=== PATIENT | male | born 1950 | race Caucasian/White ===

== ENCOUNTER → 2018-06-26 | Outpatient (CLI) | payer MEDICARE ==
--- NOTE | 2018-06-26 15:37 | Diagnostic Imaging Report ---
Exam: Left femurCT without contrast. History: Abnormal x-ray. Hypothyroidism. Anemia. Decreased range of motion. Rash on thigh Comparison:None Technique: Utilizing a 64-slice multidetector CT, axial imaging was performed through the left femur without IV contrast. Multiplanar reformation was performed. Findings: Diffuse osteopenia. No acute fracture, subluxation or avascular necrosis. Moderate/severe degenerative arthrosis in the left hip joint with joint space narrowing, subchondral sclerosis, subchondral cystic change and peripheral osteophytosis with fragmentation of the superior lateral acetabulum. Left hip joint effusion likely reactive. Bony protuberance off the left hip greater trochanter likely due to chronic trochanteric bursitis. Ill-defined bony protuberance which may be partially cortically based with associated central lucency and thinning of the cortex along the posterior proximal shaft of the femur best seen on sagittal reformatted image 92 through 100 and axial image 48 through 77. No radiopaque foreign body. Diffuse muscle atrophy. Impression: Ill-defined bony protuberance which may be partially cortically based with associated central lucency and thinning of the cortex along the posterior proximal shaft of the femur could be due to a bony exostosis. A metastatic focus is a possibility. Infection is thought to be unlikely. Bone scan is recommended for further evaluation. Signed by: Dr. Wiliam Ramos M.D. on 06/26/2018 3:33 PM
--- NOTE | 2018-06-26 15:43 | Diagnostic Imaging Report ---
EXAM: CT Abdomen and Pelvis WITHOUT contrast INDICATION: \[id number] \[id number] \S\ANEMIA/DIARRHEA/ABN XRAY COMPARISON: None. TECHNIQUE: Abdomen and pelvis were scanned utilizing a multidetector helical scanner from the lung base to the pubic symphysis without administration of IV contrast. Absence of intravenous contrast decreases sensitivity for detection of focal lesions and vascular pathology. Coronal and sagittal reformations were obtained. Routine protocol was performed. IV CONTRAST: None ORAL CONTRAST: Water COMPLICATIONS: None RADIATION DOSE: Total DLP: 1421.92 mGy*cm Estimated effective dose: (DLP x 0.015 x size factor) mSv CTDIvol has been reviewed. It is below the limits set by the Radiation Protocol Committee (RPC). FINDINGS: LINES and TUBES: None. LOWER THORAX: Right base opacification with air bronchograms. Elevated right hemidiaphragm. HEPATOBILIARY: Hepatomegaly, measuring 20.1 cm. Unenhanced liver is unremarkable. No biliary ductal dilation. GALLBLADDER: No radio-opaque stones or sludge. No wall thickening. SPLEEN: Splenomegaly, measuring 17.3 cm. PANCREAS: Fatty involution of the pancreas. No focal masses or ductal dilatation. ADRENALS: No adrenal nodules KIDNEYS/URETERS: Horseshoe kidney. No hydronephrosis. Limited for evaluation of renal parenchyma without intravenous contrast. 1.3 and 0.8 cm left inferior pole calculi. 1.4 cm right inferior pole calculus. 0.7 cm right superior pole calculus. Minimal bilateral hydroureter and periureteral fat stranding, left slightly more than right. GI TRACT: No abnormal distention, wall thickening, or evidence of bowel obstruction. All of the small bowel loops are in the right abdomen. Appendix is not visualized. PELVIC ORGANS/BLADDER: Mild bladder wall thickening. LYMPH NODES: No lymphadenopathy. Nonspecific subcentimeter retroperitoneal lymph nodes. VESSELS: Unremarkable. PERITONEUM / RETROPERITONEUM: No free air or fluid. BONES: Advanced degenerative changes of the bilateral hip joints. Thoracolumbar posterior fusion. Multilevel degenerative changes of the spine. SOFT TISSUES: Unremarkable. IMPRESSION: 1. Limited study without intravenous contrast. 2. Horseshoe kidney. Bilateral nonobstructive renal calculi. No evidence of obstructive urolithiasis. There is minimal bilateral hydroureter and periureteral fat stranding as well as mild bladder wall thickening. Urinary tract infection cannot be excluded. 3. Displacement of the small bowel loops to the right abdomen, could be due to mesenteric herniation through a peritoneal defect. No evidence of bowel obstruction. 4. No definite evidence of acute inflammatory process in the abdomen/pelvis. 5. Hepatosplenomegaly. 6. Elevated right hemidiaphragm with right base consolidation, likely atelectasis. Signed by: Dr. Jonh Mcelroy MD on 06/26/2018 3:39 PM
== END ==
LOC: CT 12:24
PROVIDERS: ATTEND Family Medicine Adult Medicine
DX: R93.8 Abnormal findings on diagnostic imaging of other specified body structures (principal); R16.2 Hepatomegaly with splenomegaly, not elsewhere classified; Q63.1 Lobulated, fused and horseshoe kidney; E03.9 Hypothyroidism, unspecified; D64.9 Anemia, unspecified
CPT/HCPCS: 74176

== ENCOUNTER → 2018-07-04 | Outpatient (CLI) | payer MEDICARE ==
--- NOTE | 2018-07-04 23:10 | Diagnostic Imaging Report ---
Bone Scan, three-phase Reason for exam: 68 M with paraplegia, dementia. Irregular cortex on the posterior aspect of the left femur proximally. Radiopharmaceutical: Tc-99m MDP 25 mCi Comparison: CT left femur 06/26/2018 Following intravenous administration of the radiopharmaceutical, dynamic flow and immediate blood pool images the proximal portion of the left thigh and lower pelvis followed by 4-hour delayed spot images were obtained. The patient was difficult to position given paraplegia and dementia. Flow and blood pool images show diffusely normal distribution of tracer activity to the thigh without focal abnormalities. The delayed spot images show normal distribution of tracer activity throughout the femurs bilaterally. No abnormal focal accumulation of tracer is seen in the left femur. Distribution of tracer activity is also unremarkable throughout the pelvis. Degenerative changes are present in the hips. Impression: No acute osteoblastic process is present in the left femur; no scan evidence of bone metastasis or infection. No acute osteoblastic processes are seen in the pelvis, hips or femurs. Signed by: Dr. Jamia Jeffrey M.D. on 07/04/2018 11:06 PM
== END ==
LOC: NM 09:40
PROVIDERS: ATTEND Family Medicine Adult Medicine
DX: R93.7 Abnormal findings on diagnostic imaging of other parts of musculoskeletal system (principal)
CPT/HCPCS: 78315; A9503

== ENCOUNTER → 2019-08-14 | Day surgery (SDC) | payer MEDICARE ==
[~2019-08-14] MED LIST: ARICEPT5 MG PO; ASCORBIC ACID500 MG PO; ASPIR 8181 MG PO; BALANCED SALT SOLN (OPTH) 15 ML BTL IO ONE; BETAMETHASONE D15 GM TOP; COLACE100 MG PO; DESLORATADINE5 MG PO; DEXAMETHASONE SOD PHOS INJ 4 MG/ML VIAL ONE; DILANTIN100 MG PO; EPHEDRINE SULFATE INJ 50 MG/10 ML SYR ONE; FENTANYL CITRATE/PF 100MCG/2 ML INJ ONE; FERROUS SULFAT325 MG PO; HYDROXYZINE HCL25 MG PO; LEVOTHYROXINE150 MCG PO; LIDOCAINE HCL 2% LOCAL INJ 5 ML SDV VIAL INJ ONE; MIDAZOLAM HCL 2 MG/2 ML VIAL ONE; MIRALAX17 GM PO; MULTIVITAMINS1 EAC7 PO; NOVOLOG100 UNITS1 SQ; ONDANSETRON HCL INJ 2MG/ML 2ML 2 MG/ML VIAL ONE; OR PHACO EYE KIT ONE; PEPCID20 MG PO; PREDNISOLONE 1% OP/OT; PREOP PHACO EYE KIT ONE; PROPOFOL IV EMULSION 10 MG/ML 20 ML VIAL ONE; SEVOFLURANE INHAL SOLN 250 ML PEN BTL ONE; TYLENOL325 MG PO; ZINC SULFATE220 MG PO
--- OUTSIDE RECORDS SUMMARY | 2019-08-14 10:37 | XMS REPORT | Clinical Summary ---
Author Author [facility] Organization [facility] Address Unknown Phone Unavailable Care Team Providers Care Extracting Machine Operator Name Role Phone Daryl Mandujano DO PCP Allergies Comments Active Allergy Reactions Severity Noted Date Lorazepam 09/12/2018 Haloperidol 09/12/2018 Penicillins Rash High 09/12/2018 Wasp Venom Hives High 09/12/2018 Medications End Date Status Medication Sig Dispensed Refills Start Date Active mvi, adult with vit K Infuse into a 0 (multiple vitamin) 3,300 venous unit- 150 mcg/10 mL catheter. injection Active potassium chloride Take 20 mEq 0 (K-DUR,KLOR-CON) 10 MEQ by mouth 2 CR tablet (two) times a day. Active ascorbic acid, vitamin C, Take 500 mg 0 (VITAMIN C) 500 MG tablet by mouth daily. Active famotidine (PEPCID) 20 MG Take 20 mg by 0 tablet mouth 2 (two) times a day. Active aspirin (ECOTRIN) 81 MG Take 81 mg by 0 enteric coated tablet mouth daily. Active ferrous sulfate 325 (65 Take 325 mg 0 FE) MG tablet by mouth daily with breakfast. Active calcium carbonate/vitamin Take by 0 D3 (CALCIUM 500 + D ORAL) mouth. Active zinc sulfate 220 mg Take by 0 tablet mouth. Active Lactobacillus Take 1 tablet 0 acidoph-L.bulgar by mouth 3 (FLORANEX) 1 million cell (three) times tablet a day. Active cholestyramine/aspartame Take by mouth 0 (CHOLESTYRAMINE LIGHT 2 (two) times ORAL) a day. Active phenytoin (DILANTIN) 50 Chew 200 mg 3 0 mg chewable tablet (three) times a day. Active furosemide (LASIX) 40 mg Take 40 mg by 0 tablet mouth 2 (two) times a day. Active donepezil (ARICEPT) 5 MG Take 5 mg by 0 tablet mouth nightly. Active levothyroxine (SYNTHROID, Take 150 mcg 0 LEVOXYL) 150 mcg tablet by mouth every morning. Active metoprolol succinate XL Take 25 mg by 0 (TOPROL-XL) 25 mg 24 hr mouth daily. tablet Active acetaminophen (TYLENOL) Take 500 mg 0 500 MG tablet by mouth every 4 (four) hours as needed for mild pain. Active promethazine (PHENERGAN) Take 25 mg by 0 25 MG tablet mouth every 6 (six) hours as needed for nausea or vomiting. Active hydrOXYzine (ATARAX) 25 Take 50 mg by 0 MG tablet mouth every 8 (eight) hours as needed for itching. Active insulin detemir U-100 Inject 50 0 (LEVEMIR) 100 unit/mL Units under injection the skin 2 (two) times a day. Active insulin ASPART (NovoLOG) Inject under 0 100 unit/mL injection the skin 3 (three) times a day before meals. Active vancomycin (VANCOCIN) Infuse 500 mg 0 1,000 mg injection into a venous catheter daily. Active meropenem (MERREM) 1 gram Infuse into a 0 injection venous catheter every 8 (eight) hours. Active sodium phosphates (CURAD) Insert 1 0 19-7 gram/118 mL enema Bottle into the rectum as needed. Active diphenhydrAMINE Apply 0 (BENADRYL) 2 % cream topically 3 (three) times a day as needed for itching. Active HYDROcodone-acetaminophen Take 1 tablet 0 (NORCO) 10-325 mg per by mouth tablet every 4 (four) hours as needed for moderate pain. Active traMADol (ULTRAM) 50 mg Take 50 mg by 0 tablet mouth every 4 (four) hours as needed for moderate pain. Active Problems No known active problems Encounters Care Team Description Date Type Specialty Kevin Valero MD 09/13/2018 Anesthesia General Surgery Event Tereza Garcia MD 09/13/2018 Hospital General Surgery Encounter Tereza Garcia MD Canceled PHACOEMULSIFICATION, CATARACT, WITH IOL IMPLANTATION 09/13/2018 Surgery General Surgery after 08/13/2018 Family History Medical History Relation Name Comments Diabetes Father Hypertension Father Relation Name Status Comments Father Social History Date Tobacco Use Types Packs/Day Years Used Never Smoker Smokeless Tobacco: Never Used Drinks/Week oz/Week Comments Alcohol Use No Sex Assigned at Date Recorded Not on file Industry Job Start Date Occupation Not on file Not on file Not on file Travel End Travel History Travel Start No recent travel history available. Last Filed Vital Signs Reading Time Taken Comments Vital Sign 132/69 09/13/2018 9:35 AM CDT Blood Pressure 85 09/13/2018 9:35 AM CDT Pulse 36.8 C (98.2 F) 09/13/2018 9:35 AM CDT Temperature 16 09/13/2018 9:35 AM CDT Respiratory Rate 100% 09/13/2018 9:35 AM CDT Oxygen Saturation - - Inhaled Oxygen Concentration 106 kg (233 lb 4.8 oz) 09/13/2018 9:35 AM CDT Weight 177.8 cm (5' 10") 09/13/2018 9:35 AM CDT Height 33.48 09/13/2018 9:35 AM CDT Body Mass Index Plan of Treatment Not on file Procedures Comments Procedure Name Priority Date/Time Associated Diagnosis POC GLUCOSE Routine 09/13/2018 9:29 AM CDT HC COMPLETE BLD COUNT STAT 09/13/2018 W/AUTO DIFF 9:15 AM CDT ECG 12-LEAD STAT 09/13/2018 9:09 AM CDT after 08/13/2018 Results * POC glucose (09/13/2018 9:29 AM CDT) Pathologist [facility] POC glucose 118 (H) 65 - 99 mg/dL [facility] Comment: DEPARTMENT OF Meter ID: [id number] PATHOLOGY AND Information Director: Denny Kruse GENOMIC MEDICINE Specimen Performing Organization Address City/State/Zipcode Phone Number [facility] [place] [address] [place] [address] PATHOLOGY AND GENOMIC MEDICINE * CBC with platelet and differential (09/13/2018 9:15 AM CDT) Pathologist [facility] WBC 8.43 4.50 - 11.00 k/uL [facility] DEPARTMENT OF PATHOLOGY AND GENOMIC MEDICINE RBC 3.31 (L) 4.40 - 6.00 m/uL [facility] DEPARTMENT OF PATHOLOGY AND GENOMIC MEDICINE HGB 10.5 (L) 14.0 - 18.0 g/dL [facility] DEPARTMENT OF PATHOLOGY AND GENOMIC MEDICINE HCT 31.9 (L) 41.0 - 51.0 % [facility] DEPARTMENT OF PATHOLOGY AND GENOMIC MEDICINE MCV 96.4 82.0 - 100.0 fL [facility] OF PATHOLOGY AND GENOMIC MEDICINE MCH 31.7 27.0 - 34.0 pg [facility] DEPARTMENT OF PATHOLOGY AND GENOMIC MEDICINE MCHC 32.9 31.0 - 37.0 g/dL [facility] DEPARTMENT OF PATHOLOGY AND GENOMIC MEDICINE RDW - SD 52.7 37.0 - 55.0 fL [facility] OF PATHOLOGY AND GENOMIC MEDICINE MPV 8.9 8.8 - 13.2 fL [facility] OF PATHOLOGY AND GENOMIC MEDICINE Platelet count 137 (L) 150 - 400 k/uL [facility] DEPARTMENT OF PATHOLOGY AND GENOMIC MEDICINE Nucleated RBC 0.00 /100 WBC [facility] DEPARTMENT OF PATHOLOGY AND GENOMIC MEDICINE Neutrophils 59.4 39.0 - 69.0 % [facility] DEPARTMENT OF PATHOLOGY AND GENOMIC MEDICINE Lymphocytes 18.1 (L) 25.0 - 45.0 % [facility] DEPARTMENT OF PATHOLOGY AND GENOMIC MEDICINE Monocytes 8.1 0.0 - 10.0 % [facility] DEPARTMENT OF PATHOLOGY AND GENOMIC MEDICINE Eosinophils 12.7 (H) 0.0 - 5.0 % [facility] PATHOLOGY AND GENOMIC MEDICINE Basophils 1.5 (H) 0.0 - 1.0 % [facility] DEPARTMENT OF PATHOLOGY AND GENOMIC MEDICINE Specimen Blood Performing Organization Address City/[facility] Phone Number [facility] [address] [place] [address] PATHOLOGY [facility] GENOMIC [facility] * ECG 12 lead (09/13/2018 9:09 AM CDT) Ventricular 81 [facility] rate Atrial rate 81 [facility] HI interval 170 [facility] QRSD interval 108 [facility] QT interval 396 [facility] QTC interval 460 [facility] P axis 1 14 [facility] QRS axis 1 -44 [facility] T wave axis 65 [facility] EKG impression Normal sinus rhythm-Left axis [facility] MUSE deviation-Moderate voltage criteria for LVH, may be normal variant-Cannot rule out Septal infarct , age undetermined-Abnormal ECG-No previous ECGs available- Specimen Performing Organization Address City/[facility]ode Phone Number [facility] M[address] [place] [address] after 08/13/2018 Insurance Type Payer Benefit Subscriber ID Effective Phone Address Plan / Dates Group Medicaid MEDICAID MEDICAID xxxxxxxxx [id number] resent Medicare MEDICARE MEDICARE xxxxxxxxxx [id number] RAYA, PART A AND resent [place] B Advance Directives For more information, please contact: [phone] Patient Utility Systems Repairer Operator Explanation Type Date Recorded Advance Directives, 09/13/2018 8:48 AM Living Will and Medical Power of Auditing Manager
--- OUTSIDE RECORDS SUMMARY | 2019-08-14 10:37 | XMS REPORT | Clinical Summary ---
Author Author [facility] Organization [facility] Address Unknown Phone Unavailable Care Team Providers Care Gelatin Dynamite Packing Operator Name Role Phone Daryl Mandujano DO PCP Allergies Comments Active Allergy Reactions Severity Noted Date Penicillins Rash Low 09/03/2018 Medications Not on file Active Problems Not on file Encounters Care Team Description Date Type Specialty [place] Jaquez 09/03/2018 Anesthesia Event Tereza Garcia MD 09/03/2018 Hospital Encounter after 08/13/2018 Social History Date Tobacco Use Types Packs/Day Years Used Never Assessed Sex Assigned at Date Recorded Not on file Industry Job Start Date Occupation Not on file Not on file Not on file Travel End Travel History Travel Start No recent travel history available. Last Filed Vital Signs Not on file Plan of Treatment Not on file Results Not on fileafter 08/13/2018 Insurance Payer Benefit Subscriber ID Type Phone Address Plan / Group MEDICARE MEDICARE A xxxxxxxxxxx Medicare B MEDICAID MEDICAID xxxxxxxxx Medicaid OF [place]
--- OUTSIDE RECORDS SUMMARY | 2019-08-14 10:40 | XMS REPORT ---
Author [facility] Address Unknown Phone Unavailable Care Team Providers Care Lead Case Manager Name Role Phone KAYLIECodyKarma (NS) MICHELLE Unavailable Unavailable Payers Payer Name Policy Type Policy Number Effective Date Expiration Date Problems This patient has no known problems. Allergies, Adverse Reactions, Alerts Allergy Name Allergy Type Status Severity Reaction(s) Onset Date Inactive Date Treating Clinician Comments Haloperidol Lactate DA Active MD 2019-04-26 00:00:00 Penicillins DA Active [facility] 2019-04-26 00:00:00 lorazepam DA Active MD 2019-04-26 00:00:00 Haloperidol Lactate DA Active MD 2019-04-05 00:00:00 Penicillins DA Active [facility] 2019-04-05 00:00:00 lorazepam DA Active MD 2019-04-05 00:00:00 haloperidol DA Active MD 2019-04-05 00:00:00 Haloperidol Lactate DA Active MD 2018-11-24 00:00:00 Penicillins DA Active [facility] 2018-11-24 00:00:00 lorazepam DA Active MD 2018-11-24 00:00:00 haloperidol DA Active MD 2018-11-24 00:00:00 WASP DA Active MD 2018-08-05 00:00:00 Haloperidol Lactate DA Active MD 2016-01-22 00:00:00 Penicillins DA Active [place] 2016-01-22 00:00:00 lorazepam DA Active MD 2016-01-22 00:00:00 haloperidol DA Active MD 2016-01-22 00:00:00 Medications This patient has no known medications. Results Test Description Test Time Test Comments Text Results Atomic Results Result Comments GLUBED 2019-07-10 08:43:00 GLUBED (test code=GLUBED) 95 mg/dL 74-106 Performed by certified packer operator automatic at [facility] [id number] 06:41:00* Test Item Value Reference Range Comments GLUBED (test code=GLUBED) 130 mg/dL 74-106 Performed by certified packer operator automatic at [facility] [id number] 06:41:00* Test Item Value Reference Range Comments GLUBED (test code=GLUBED) 89 mg/dL 74-106 Performed by certified packer operator automatic at [facility] [id number] 22:08:00* Test Item Value Reference Range Comments GLUBED (test code=GLUBED) 112 mg/dL 74-106 Performed by certified packer operator automatic at [facility] [id number] 16:09:00* Test Item Value Reference Range Comments GLUBED (test code=GLUBED) 93 mg/dL 74-106 Performed by certified packer operator automatic at [facility] [id number] 11:46:00* Test Item Value Reference Range Comments GLUBED (test code=GLUBED) 126 mg/dL 74-106 Performed by certified packer operator automatic at [facility] [id number] 05:53:00* Test Item Value Reference Range Comments GLUBED (test code=GLUBED) 84 mg/dL 74-106 Performed by certified packer operator automatic at [facility] [id number] 21:27:00* Test Item Value Reference Range Comments GLUBED (test code=GLUBED) 125 mg/dL 74-106 Performed by certified packer operator automatic at [facility] [id number] 21:27:00* Test Item Value Reference Range Comments GLUBED (test code=GLUBED) 149 mg/dL 74-106 Performed by certified packer operator automatic at [facility] [id number] 21:26:00* Test Item Value Reference Range Comments GLUBED (test code=GLUBED) 114 mg/dL 74-106 Performed by certified packer operator automatic at [facility] COMPREHENSIVE METABOLIC [id number] 16:56:00* Test Item Value Reference Range Comments SODIUM (test code=NA) 143 mmol/L 136-145 POTASSIUM (test code=K) 3.8 mmol/L 3.5-5.1 CHLORIDE (test code=CL) 112.0 mmol/L 98-107 CARBON DIOXIDE (test code=CO2) 24.0 mmol/L 21-32 ANION GAP (test code=GAP) 10.8 10-20 GLUCOSE (test code=GLU) 166 mg/dL 74-106 BLOOD UREA NITROGEN (test code=BUN) 20 mg/dL 7-18 GLOMERULAR FILTRATION RATE (test code=GFR) > 60 mL/min >=60 Estimated GFR by using Modified MDRD formula.Chronic kidney disease is defined as either kidney damageor GFR <60 mL/min/1.73 m2 for >3 months. CREATININE (test code=CREAT) 0.80 mg/dL 0.7-1.3 BUN/CREATININE RATIO (test code=BUN/CREA) 26.4 10-20 TOTAL PROTEIN (test code=PROT) 7.0 gram/dL 6.4-8.2 ALBUMIN (test code=ALB) 1.7 g/dL 3.4-5.0 GLOBULIN (test code=GLOB) 5.3 gram/dL 2.7-4.2 ALBUMIN/GLOBULIN RATIO (test code=A/G) 0.3 0.75-1.50 CALCIUM (test code=CA) 7.7 mg/dL 8.5-10.1 BILIRUBIN TOTAL (test code=BILT) 0.20 mg/dL 0.0-1.0 SGOT/AST (test code=AST) 30 IUnit/L 15-37 SGPT/ALT (test code=ALT) 9 IUnit/L 12-78 ALKALINE PHOSPHATASE TOTAL (test code=ALKP) 202 IUnit/L 45-117 Note change in reference range due to change in reagent. PT REFUSAL CALLED AND TEXTED RAYMOND NORTON WAITING ON 3-4ID @[id number].LAB.[id number] 07/07/19 0 812COMPREHENSIVE METABOLIC [id number] 16:49:00* Test Item Value Reference Range Comments SODIUM (test code=NA) 143 mmol/L 136-145 POTASSIUM (test code=K) 3.8 mmol/L 3.5-5.1 CHLORIDE (test code=CL) 112.0 mmol/L 98-107 CARBON DIOXIDE (test code=CO2) mmol/L 21-32 ANION GAP (test code=GAP) 10-20 GLUCOSE (test code=GLU) mg/dL 74-106 BLOOD UREA NITROGEN (test code=BUN) mg/dL 7-18 GLOMERULAR FILTRATION RATE (test code=GFR) mL/min >=60 CREATININE (test code=CREAT) mg/dL 0.7-1.3 BUN/CREATININE RATIO (test code=BUN/CREA) 10-20 TOTAL PROTEIN (test code=PROT) gram/dL 6.4-8.2 ALBUMIN (test code=ALB) g/dL 3.4-5.0 GLOBULIN (test code=GLOB) gram/dL 2.7-4.2 ALBUMIN/GLOBULIN RATIO (test code=A/G) 0.75-1.50 CALCIUM (test code=CA) mg/dL 8.5-10.1 BILIRUBIN TOTAL (test code=BILT) mg/dL 0.0-1.0 SGOT/AST (test code=AST) IUnit/L 15-37 SGPT/ALT (test code=ALT) IUnit/L 12-78 ALKALINE PHOSPHATASE TOTAL (test code=ALKP) IUnit/L 45-117 PT REFUSAL CALLED AND TEXTED RAYMOND OVALLES ON 3-4ID @[id number].LAB.[id number] 07/07/19 0 812PROTHROMBIN [id number] 16:43:00* Test Item Value Reference Range Comments PROTHROMBIN TIME PATIENT (test code=PTP) 15.8 seconds 9.0-14.0 INTERNATIONAL NORMAL RATIO (test code=INR) 1.4 0.8-1.2 The therapeutic range for oral anticoagulant therapy formost indications is an international normalized ratio (INR)of between 2.0 and 3.0. The recommended therapeutic INRrange for various clinical situations is listed below: Clinical Situation INR range Pulmonary e mbolism treatment (2.0-3.0)Venous thrombosis treatmentVenous thrombosis prophylaxis (high risk surgery)Prevention of systemic embolism from: Acute myocardial infarction Valvular heart disease Atrial fibrillation Mechanical prosthetic heart valves (2.5-3.5) PT REFUSAL. CALLED AND TEXTED RAYMOND NORTON. WAITING ON 3-4IDIS PATIENT ON ANTICOAGUL ANTS? NTHROMBOPLASTIN TIME [id number] 16:43:00* Test Item Value Reference Range Comments THROMBOPLASTIN TIME PARTIAL (test code=PTT) 31.7 seconds 25.0-36.5 PT REFUSAL. CALLED AND TEXTED RAYMOND NORTON. WAITING ON 3-4IDIS PATIENT ON ANTICOAGUL ANTS? [id number] 06:18:00* Test Item Value Reference Range Comments GLUBED (test code=GLUBED) 87 mg/dL 74-106 Performed by certified packer operator automatic at [facility] [id number] 20:57:00* Test Item Value Reference Range Comments GLUBED (test code=GLUBED) 128 mg/dL 74-106 Performed by certified packer operator automatic at [facility] [id number] 16:11:00* Test Item Value Reference Range Comments GLUBED (test code=GLUBED) 131 mg/dL 74-106 Performed by certified packer operator automatic at [facility] [id number] 11:20:00* Test Item Value Reference Range Comments GLUBED (test code=GLUBED) 102 mg/dL 74-106 Performed by certified packer operator automatic at [facility] [id number] 08:42:00* Test Item Value Reference Range Comments GLUBED (test code=GLUBED) 84 mg/dL 74-106 Performed by certified packer operator automatic at [facility] [id number] 22:48:00* Test Item Value Reference Range Comments GLUBED (test code=GLUBED) 107 mg/dL 74-106 Performed by certified packer operator automatic at [facility] [id number] 17:39:00* Test Item Value Reference Range Comments GLUBED (test code=GLUBED) 125 mg/dL 74-106 Performed by certified packer operator automatic at [facility] [id number] 12:38:00* Test Item Value Reference Range Comments GLUBED (test code=GLUBED) 101 mg/dL 74-106 Performed by certified packer operator automatic at [facility] [id number] 07:34:00* Test Item Value Reference Range Comments GLUBED (test code=GLUBED) 88 mg/dL 74-106 Performed by certified packer operator automatic at [facility] COMPREHENSIVE METABOLIC [id number] 06:12:00* Test Item Value Reference Range Comments SODIUM (test code=NA) 147 mmol/L 136-145 POTASSIUM (test code=K) 3.4 mmol/L 3.5-5.1 CHLORIDE (test code=CL) 116.0 mmol/L 98-107 CARBON DIOXIDE (test code=CO2) 25.0 mmol/L 21-32 ANION GAP (test code=GAP) 9.4 10-20 GLUCOSE (test code=GLU) 98 mg/dL 74-106 BLOOD UREA NITROGEN (test code=BUN) 19 mg/dL 7-18 GLOMERULAR FILTRATION RATE (test code=GFR) > 60 mL/min >=60 Estimated GFR by using Modified MDRD formula.Chronic kidney disease is defined as either kidney damageor GFR <60 mL/min/1.73 m2 for >3 months. CREATININE (test code=CREAT) 0.90 mg/dL 0.7-1.3 BUN/CREATININE RATIO (test code=BUN/CREA) 22.3 10-20 TOTAL PROTEIN (test code=PROT) 6.7 gram/dL 6.4-8.2 ALBUMIN (test code=ALB) 1.7 g/dL 3.4-5.0 GLOBULIN (test code=GLOB) 5.0 gram/dL 2.7-4.2 ALBUMIN/GLOBULIN RATIO (test code=A/G) 0.3 0.75-1.50 CALCIUM (test code=CA) 7.6 mg/dL 8.5-10.1 BILIRUBIN TOTAL (test code=BILT) 0.30 mg/dL 0.0-1.0 SGOT/AST (test code=AST) 22 IUnit/L 15-37 SGPT/ALT (test code=ALT) < 6 IUnit/L 12-78 ALKALINE PHOSPHATASE TOTAL (test code=ALKP) 207 IUnit/L 45-117 Note change in reference range due to change in reagent. COMPREHENSIVE METABOLIC [id number] 06:07:00* Test Item Value Reference Range Comments SODIUM (test code=NA) 147 mmol/L 136-145 POTASSIUM (test code=K) 3.4 mmol/L 3.5-5.1 CHLORIDE (test code=CL) 116.0 mmol/L 98-107 CARBON DIOXIDE (test code=CO2) mmol/L 21-32 ANION GAP (test code=GAP) 10-20 GLUCOSE (test code=GLU) mg/dL 74-106 BLOOD UREA NITROGEN (test code=BUN) mg/dL 7-18 GLOMERULAR FILTRATION RATE (test code=GFR) mL/min >=60 CREATININE (test code=CREAT) mg/dL 0.7-1.3 BUN/CREATININE RATIO (test code=BUN/CREA) 10-20 TOTAL PROTEIN (test code=PROT) gram/dL 6.4-8.2 ALBUMIN (test code=ALB) g/dL 3.4-5.0 GLOBULIN (test code=GLOB) gram/dL 2.7-4.2 ALBUMIN/GLOBULIN RATIO (test code=A/G) 0.75-1.50 CALCIUM (test code=CA) mg/dL 8.5-10.1 BILIRUBIN TOTAL (test code=BILT) mg/dL 0.0-1.0 SGOT/AST (test code=AST) IUnit/L 15-37 SGPT/ALT (test code=ALT) IUnit/L 12-78 ALKALINE PHOSPHATASE TOTAL (test code=ALKP) IUnit/L 45-117 CBC W/AUTO [id number] 05:16:00* Test Item Value Reference Range Comments WHITE BLOOD CELL (test code=WBC) 12.5 K/mm3 4.5-12.5 RED BLOOD CELL (test code=RBC) 2.86 mill/mm3 4.0-5.8 HEMOGLOBIN (test code=HGB) 8.7 gram/dL 13.0-17.5 HEMATOCRIT (test code=HCT) 27.4 % 42.0-52.0 MEAN CELL VOLUME (test code=MCV) 95.8 fL 80-98 MEAN CELL HGB (test code=MCH) 30.4 picogram 27.0-33.0 MEAN CELL HGB CONCETRATION (test code=MCHC) 31.8 gram/dL 33.0-36.0 RED CELL DISTRIBUTION WIDTH (test code=RDW) 15.4 % 11.6-16.2 RED CELL DISTRIBUTION WIDTH SD (test code=RDW-SD) 52.6 fL 37.0-51.0 PLATELET COUNT (test code=PLT) 143 K/mm3 150-450 MEAN PLATELET VOLUME (test code=MPV) 8.7 fL 6.7-11.0 NEUTROPHIL % (test code=NT%) 73.8 % 39.0-69.0 IMMATURE GRANULOCYTE % (test code=IG%) 1.0 % 0.0-5.0 LYMPHOCYTE % (test code=LY%) 13.0 % 25.0-55.0 MONOCYTE % (test code=MO%) 5.1 % 0.0-10.0 EOSINOPHIL % (test code=EO%) 6.7 % 0.0-5.0 BASOPHIL % (test code=BA%) 0.4 % 0.0-1.0 NUCLEATED RBC % (test code=NRBC%) 0.0 % 0-0 NEUTROPHIL # (test code=NT#) 9.20 K/mm3 1.8-7.7 IMMATURE GRANULOCYTE # (test code=IG#) 0.13 x10 3/uL 0-0.03 LYMPHOCYTE # (test code=LY#) 1.62 K/mm3 1.0-5.0 MONOCYTE # (test code=MO#) 0.64 K/mm3 0-0.8 EOSINOPHIL # (test code=EO#) 0.83 K/mm3 0.0-0.5 BASOPHIL # (test code=BA#) 0.05 K/mm3 0.0-0.2 NUCLEATED RBC # (test code=NRBC#) 0.00 K/mm3 0.0-0.1 MANUAL DIFF REQUIRED (test code=MDIFF) NO [id number] 21:32:00* Test Item Value Reference Range Comments GLUBED (test code=GLUBED) 135 mg/dL 74-106 Performed by certified packer operator automatic at [facility] [id number] 16:45:00* Test Item Value Reference Range Comments GLUBED (test code=GLUBED) 123 mg/dL 74-106 Performed by certified packer operator automatic at [facility] [id number] 11:14:00* Test Item Value Reference Range Comments GLUBED (test code=GLUBED) 107 mg/dL 74-106 Performed by certified packer operator automatic at [facility] [id number] 08:09:00* Test Item Value Reference Range Comments GLUBED (test code=GLUBED) 91 mg/dL 74-106 Performed by certified packer operator automatic at [facility] [id number] 06:11:00* Test Item Value Reference Range Comments GLUBED (test code=GLUBED) 91 mg/dL 74-106 Performed by certified packer operator automatic at [facility] [id number] 20:31:00* Test Item Value Reference Range Comments GLUBED (test code=GLUBED) 93 mg/dL 74-106 Performed by certified packer operator automatic at [facility] [id number] 16:43:00* Test Item Value Reference Range Comments GLUBED (test code=GLUBED) 118 mg/dL 74-106 Performed by certified packer operator automatic at [facility] PROCALCITONIN (PCT)2019-07-03 14:31:00* Test Item Value Reference Range Comments PROCALCITONIN (PCT) (test code=PROCAL) 4.12 ng/ml Concentration Interpretation (ng/mL) <0.51 Sepsis is not likely. Local bacterial infection is possible. (LOW RISK for progression to Sepsis) 0.51 - 2.00 Sepsis is possible, but other conditions are known to elevate PCT as well. (MODERATE RISK for progression to Sepsis) > 2.00 Sepsis is likely, unless other causes are known. (HIGH RISK for progression to Severe Sepsis or Septic Shock) 10.00 High likelihood of Severe Sepsis or Septic or higher Shock. *Increased PCT levels may not always be related to systemic bacterial infection.*Low PCT levels do not automatically exclude the presence of bacterial infection.*All results should be interpreted taking into account the patients history. [id number] 13:02:00* Test Item Value Reference Range Comments GLUBED (test code=GLUBED) 132 mg/dL 74-106 Performed by certified packer operator automatic at [facility] CBC W/MANUAL [id number] 09:47:00* Test Item Value Reference Range Comments WHITE BLOOD CELL (test code=WBC) 9.4 K/mm3 4.5-12.5 RED BLOOD CELL (test code=RBC) 2.85 mill/mm3 4.0-5.8 HEMOGLOBIN (test code=HGB) 8.6 gram/dL 13.0-17.5 HEMATOCRIT (test code=HCT) 26.9 % 42.0-52.0 MEAN CELL VOLUME (test code=MCV) 94.4 fL 80-98 MEAN CELL HGB (test code=MCH) 30.2 picogram 27.0-33.0 MEAN CELL HGB CONCETRATION (test code=MCHC) 32.0 gram/dL 33.0-36.0 RED CELL DISTRIBUTION WIDTH (test code=RDW) 15.4 % 11.6-16.2 RED CELL DISTRIBUTION WIDTH SD (test code=RDW-SD) 52.6 fL 37.0-51.0 PLATELET COUNT (test code=PLT) 114 K/mm3 150-450 RESULT VERIFIED BY REPEAT ANALYSIS MEAN PLATELET VOLUME (test code=MPV) 9.1 fL 6.7-11.0 IMMATURE GRANULOCYTE % (test code=IG%) 1.6 % 0.0-5.0 NUCLEATED RBC % (test code=NRBC%) 0.0 % 0-0 NEUTROPHIL # (test code=NT#) 6.74 K/mm3 1.8-7.7 IMMATURE GRANULOCYTE # (test code=IG#) 0.15 x10 3/uL 0-0.03 LYMPHOCYTE # (test code=LY#) 1.22 K/mm3 1.0-5.0 MONOCYTE # (test code=MO#) 0.57 K/mm3 0-0.8 EOSINOPHIL # (test code=EO#) 0.70 K/mm3 0.0-0.5 BASOPHIL # (test code=BA#) 0.03 K/mm3 0.0-0.2 NUCLEATED RBC # (test code=NRBC#) 0.00 K/mm3 0.0-0.1 MANUAL DIFF REQUIRED (test code=MDIFF) YES STAIN ACCEPTABILITY (test code=STN ACCEPTABLE) STAIN ACCEPTABLE TOTAL CELLS COUNTED (test code=TCC) 114 #CELLS SEGMENTED NEUTROPHILS (test code=SEG) 86.0 % 39-69 BAND NEUTROPHIL (test code=BAND) 0 % 0-10 LYMPHOCYTE (test code=LYMPH) 4.4 % 25-55 REACTIVE LYMPH (test code=RELYMPH) 0 % MONOCYTE (test code=MON) 6.1 % 0-10 EOSINOPHIL (test code=EOS) 3.5 % 0.0-5.0 BASOPHIL (test code=BASO) 0 % 0-1.0 METAMYELOCYTE (test code=META) 0 % 0-0 MYELOCYTE (test code=MYELO) 0 % 0.0-0.0 PROMYELOCYTE (test code=PROM) 0 % 0-0 MORPHOLOGY COMMENT (test code=MOC) NORMAL PLATELET ESTIMATE (test code=PLTEST) DECREASED PLATELET MORPHOLOGY (test code=PLTMORPH) CLUMPING PRESENT IMMATURE FORMS (test code=IMMAT) 0 % 0-0 PROTHROMBIN [id number] 09:11:00* Test Item Value Reference Range Comments PROTHROMBIN TIME PATIENT (test code=PTP) 14.0 seconds 9.0-14.0 INTERNATIONAL NORMAL RATIO (test code=INR) 1.2 0.8-1.2 The therapeutic range for oral anticoagulant therapy formost indications is an international normalized ratio (INR)of between 2.0 and 3.0. The recommended therapeutic INRrange for various clinical situations is listed below: Clinical Situation INR range Pulmonary e mbolism treatment (2.0-3.0)Venous thrombosis treatmentVenous thrombosis prophylaxis (high risk surgery)Prevention of systemic embolism from: Acute myocardial infarction Valvular heart disease Atrial fibrillation Mechanical prosthetic heart valves (2.5-3.5) IS PATIENT ON ANTICOAGULANTS? NTHROMBOPLASTIN TIME [id number] 09:11:00* Test Item Value Reference Range Comments THROMBOPLASTIN TIME PARTIAL (test code=PTT) 31.2 seconds 25.0-36.5 IS PATIENT ON ANTICOAGULANTS? NHEPARIN INDUCED [id number] 09:11:00 * Test Item Value Reference Range Comments HEPARIN INDUCED THROMBOCYTOPEN (test code=HIT) NEGATIVE NEGATIVE IS PATIENT ON ANTICOAGULANTS? NCOMPREHENSIVE METABOLIC [id number] 08:58:00 * Test Item Value Reference Range Comments SODIUM (test code=NA) 147 mmol/L 136-145 POTASSIUM (test code=K) 3.4 mmol/L 3.5-5.1 CHLORIDE (test code=CL) 115.0 mmol/L 98-107 CARBON DIOXIDE (test code=CO2) 25.0 mmol/L 21-32 ANION GAP (test code=GAP) 10.4 10-20 GLUCOSE (test code=GLU) 100 mg/dL 74-106 BLOOD UREA NITROGEN (test code=BUN) 27 mg/dL 7-18 GLOMERULAR FILTRATION RATE (test code=GFR) > 60 mL/min >=60 Estimated GFR by using Modified MDRD formula.Chronic kidney disease is defined as either kidney damageor GFR <60 mL/min/1.73 m2 for >3 months. CREATININE (test code=CREAT) 0.80 mg/dL 0.7-1.3 BUN/CREATININE RATIO (test code=BUN/CREA) 35.7 10-20 TOTAL PROTEIN (test code=PROT) 6.0 gram/dL 6.4-8.2 ALBUMIN (test code=ALB) 1.9 g/dL 3.4-5.0 GLOBULIN (test code=GLOB) 4.1 gram/dL 2.7-4.2 ALBUMIN/GLOBULIN RATIO (test code=A/G) 0.5 0.75-1.50 CALCIUM (test code=CA) 7.5 mg/dL 8.5-10.1 BILIRUBIN TOTAL (test code=BILT) 0.60 mg/dL 0.0-1.0 SGOT/AST (test code=AST) 28 IUnit/L 15-37 SGPT/ALT (test code=ALT) 8 IUnit/L 12-78 ALKALINE PHOSPHATASE TOTAL (test code=ALKP) 208 IUnit/L 45-117 Note change in reference range due to change in reagent. COMPREHENSIVE METABOLIC [id number] 08:56:00* Test Item Value Reference Range Comments SODIUM (test code=NA) 147 mmol/L 136-145 POTASSIUM (test code=K) 3.4 mmol/L 3.5-5.1 CHLORIDE (test code=CL) 115.0 mmol/L 98-107 CARBON DIOXIDE (test code=CO2) mmol/L 21-32 ANION GAP (test code=GAP) 10-20 GLUCOSE (test code=GLU) mg/dL 74-106 BLOOD UREA NITROGEN (test code=BUN) mg/dL 7-18 GLOMERULAR FILTRATION RATE (test code=GFR) mL/min >=60 CREATININE (test code=CREAT) mg/dL 0.7-1.3 BUN/CREATININE RATIO (test code=BUN/CREA) 10-20 TOTAL PROTEIN (test code=PROT) gram/dL 6.4-8.2 ALBUMIN (test code=ALB) g/dL 3.4-5.0 GLOBULIN (test code=GLOB) gram/dL 2.7-4.2 ALBUMIN/GLOBULIN RATIO (test code=A/G) 0.75-1.50 CALCIUM (test code=CA) mg/dL 8.5-10.1 BILIRUBIN TOTAL (test code=BILT) mg/dL 0.0-1.0 SGOT/AST (test code=AST) IUnit/L 15-37 SGPT/ALT (test code=ALT) IUnit/L 12-78 ALKALINE PHOSPHATASE TOTAL (test code=ALKP) IUnit/L 45-117 CBC W/MANUAL [id number] 08:50:00* Test Item Value Reference Range Comments WHITE BLOOD CELL (test code=WBC) 9.4 K/mm3 4.5-12.5 RED BLOOD CELL (test code=RBC) 2.85 mill/mm3 4.0-5.8 HEMOGLOBIN (test code=HGB) 8.6 gram/dL 13.0-17.5 HEMATOCRIT (test code=HCT) 26.9 % 42.0-52.0 MEAN CELL VOLUME (test code=MCV) 94.4 fL 80-98 MEAN CELL HGB (test code=MCH) 30.2 picogram 27.0-33.0 MEAN CELL HGB CONCETRATION (test code=MCHC) 32.0 gram/dL 33.0-36.0 RED CELL DISTRIBUTION WIDTH (test code=RDW) 15.4 % 11.6-16.2 RED CELL DISTRIBUTION WIDTH SD (test code=RDW-SD) 52.6 fL 37.0-51.0 PLATELET COUNT (test code=PLT) 114 K/mm3 150-450 RESULT VERIFIED BY REPEAT ANALYSIS MEAN PLATELET VOLUME (test code=MPV) 9.1 fL 6.7-11.0 IMMATURE GRANULOCYTE % (test code=IG%) 1.6 % 0.0-5.0 NUCLEATED RBC % (test code=NRBC%) 0.0 % 0-0 NEUTROPHIL # (test code=NT#) 6.74 K/mm3 1.8-7.7 IMMATURE GRANULOCYTE # (test code=IG#) 0.15 x10 3/uL 0-0.03 LYMPHOCYTE # (test code=LY#) 1.22 K/mm3 1.0-5.0 MONOCYTE # (test code=MO#) 0.57 K/mm3 0-0.8 EOSINOPHIL # (test code=EO#) 0.70 K/mm3 0.0-0.5 BASOPHIL # (test code=BA#) 0.03 K/mm3 0.0-0.2 NUCLEATED RBC # (test code=NRBC#) 0.00 K/mm3 0.0-0.1 MANUAL DIFF REQUIRED (test code=MDIFF) YES STAIN ACCEPTABILITY (test code=STN ACCEPTABLE) TOTAL CELLS COUNTED (test code=TCC) #CELLS SEGMENTED NEUTROPHILS (test code=SEG) % 39-69 LYMPHOCYTE (test code=LYMPH) % 25-55 MONOCYTE (test code=MON) % 0-10 EOSINOPHIL (test code=EOS) % 0.0-5.0 CABOT RINGS (test code=CAB) MORPHOLOGY COMMENT (test code=MOC) PLATELET ESTIMATE (test code=PLTEST) PLATELET MORPHOLOGY (test code=PLTMORPH) CBC W/MANUAL [id number] 08:50:00* Test Item Value Reference Range Comments WHITE BLOOD CELL (test code=WBC) 9.4 K/mm3 4.5-12.5 RED BLOOD CELL (test code=RBC) 2.85 mill/mm3 4.0-5.8 HEMOGLOBIN (test code=HGB) 8.6 gram/dL 13.0-17.5 HEMATOCRIT (test code=HCT) 26.9 % 42.0-52.0 MEAN CELL VOLUME (test code=MCV) 94.4 fL 80-98 MEAN CELL HGB (test code=MCH) 30.2 picogram 27.0-33.0 MEAN CELL HGB CONCETRATION (test code=MCHC) 32.0 gram/dL 33.0-36.0 RED CELL DISTRIBUTION WIDTH (test code=RDW) 15.4 % 11.6-16.2 RED CELL DISTRIBUTION WIDTH SD (test code=RDW-SD) 52.6 fL 37.0-51.0 PLATELET COUNT (test code=PLT) 114 K/mm3 150-450 RESULT VERIFIED BY REPEAT ANALYSIS MEAN PLATELET VOLUME (test code=MPV) 9.1 fL 6.7-11.0 IMMATURE GRANULOCYTE % (test code=IG%) 1.6 % 0.0-5.0 NUCLEATED RBC % (test code=NRBC%) 0.0 % 0-0 NEUTROPHIL # (test code=NT#) 6.74 K/mm3 1.8-7.7 IMMATURE GRANULOCYTE # (test code=IG#) 0.15 x10 3/uL 0-0.03 LYMPHOCYTE # (test code=LY#) 1.22 K/mm3 1.0-5.0 MONOCYTE # (test code=MO#) 0.57 K/mm3 0-0.8 EOSINOPHIL # (test code=EO#) 0.70 K/mm3 0.0-0.5 BASOPHIL # (test code=BA#) 0.03 K/mm3 0.0-0.2 NUCLEATED RBC # (test code=NRBC#) 0.00 K/mm3 0.0-0.1 MANUAL DIFF REQUIRED (test code=MDIFF) YES STAIN ACCEPTABILITY (test code=STN ACCEPTABLE) TOTAL CELLS COUNTED (test code=TCC) #CELLS SEGMENTED NEUTROPHILS (test code=SEG) % 39-69 LYMPHOCYTE (test code=LYMPH) % 25-55 MONOCYTE (test code=MON) % 0-10 EOSINOPHIL (test code=EOS) % 0.0-5.0 CABOT RINGS (test code=CAB) MORPHOLOGY COMMENT (test code=MOC) PLATELET ESTIMATE (test code=PLTEST) PLATELET MORPHOLOGY (test code=PLTMORPH) CBC W/MANUAL [id number] 08:50:00* Test Item Value Reference Range Comments WHITE BLOOD CELL (test code=WBC) 9.4 K/mm3 4.5-12.5 RED BLOOD CELL (test code=RBC) 2.85 mill/mm3 4.0-5.8 HEMOGLOBIN (test code=HGB) 8.6 gram/dL 13.0-17.5 HEMATOCRIT (test code=HCT) 26.9 % 42.0-52.0 MEAN CELL VOLUME (test code=MCV) 94.4 fL 80-98 MEAN CELL HGB (test code=MCH) 30.2 picogram 27.0-33.0 MEAN CELL HGB CONCETRATION (test code=MCHC) 32.0 gram/dL 33.0-36.0 RED CELL DISTRIBUTION WIDTH (test code=RDW) 15.4 % 11.6-16.2 RED CELL DISTRIBUTION WIDTH SD (test code=RDW-SD) 52.6 fL 37.0-51.0 PLATELET COUNT (test code=PLT) 114 K/mm3 150-450 RESULT VERIFIED BY REPEAT ANALYSIS MEAN PLATELET VOLUME (test code=MPV) 9.1 fL 6.7-11.0 IMMATURE GRANULOCYTE % (test code=IG%) 1.6 % 0.0-5.0 NUCLEATED RBC % (test code=NRBC%) 0.0 % 0-0 NEUTROPHIL # (test code=NT#) 6.74 K/mm3 1.8-7.7 IMMATURE GRANULOCYTE # (test code=IG#) 0.15 x10 3/uL 0-0.03 LYMPHOCYTE # (test code=LY#) 1.22 K/mm3 1.0-5.0 MONOCYTE # (test code=MO#) 0.57 K/mm3 0-0.8 EOSINOPHIL # (test code=EO#) 0.70 K/mm3 0.0-0.5 BASOPHIL # (test code=BA#) 0.03 K/mm3 0.0-0.2 NUCLEATED RBC # (test code=NRBC#) 0.00 K/mm3 0.0-0.1 MANUAL DIFF REQUIRED (test code=MDIFF) YES STAIN ACCEPTABILITY (test code=STN ACCEPTABLE) TOTAL CELLS COUNTED (test code=TCC) #CELLS SEGMENTED NEUTROPHILS (test code=SEG) % 39-69 LYMPHOCYTE (test code=LYMPH) % 25-55 MONOCYTE (test code=MON) % 0-10 EOSINOPHIL (test code=EOS) % 0.0-5.0 MORPHOLOGY COMMENT (test code=MOC) PLATELET ESTIMATE (test code=PLTEST) PLATELET MORPHOLOGY (test code=PLTMORPH) CBC W/MANUAL [id number] 08:50:00* Test Item Value Reference Range Comments WHITE BLOOD CELL (test code=WBC) 9.4 K/mm3 4.5-12.5 RED BLOOD CELL (test code=RBC) 2.85 mill/mm3 4.0-5.8 HEMOGLOBIN (test code=HGB) 8.6 gram/dL 13.0-17.5 HEMATOCRIT (test code=HCT) 26.9 % 42.0-52.0 MEAN CELL VOLUME (test code=MCV) 94.4 fL 80-98 MEAN CELL HGB (test code=MCH) 30.2 picogram 27.0-33.0 MEAN CELL HGB CONCETRATION (test code=MCHC) 32.0 gram/dL 33.0-36.0 RED CELL DISTRIBUTION WIDTH (test code=RDW) 15.4 % 11.6-16.2 RED CELL DISTRIBUTION WIDTH SD (test code=RDW-SD) 52.6 fL 37.0-51.0 PLATELET COUNT (test code=PLT) 114 K/mm3 150-450 RESULT VERIFIED BY REPEAT ANALYSIS MEAN PLATELET VOLUME (test code=MPV) 9.1 fL 6.7-11.0 IMMATURE GRANULOCYTE % (test code=IG%) 1.6 % 0.0-5.0 NUCLEATED RBC % (test code=NRBC%) 0.0 % 0-0 NEUTROPHIL # (test code=NT#) 6.74 K/mm3 1.8-7.7 IMMATURE GRANULOCYTE # (test code=IG#) 0.15 x10 3/uL 0-0.03 LYMPHOCYTE # (test code=LY#) 1.22 K/mm3 1.0-5.0 MONOCYTE # (test code=MO#) 0.57 K/mm3 0-0.8 EOSINOPHIL # (test code=EO#) 0.70 K/mm3 0.0-0.5 BASOPHIL # (test code=BA#) 0.03 K/mm3 0.0-0.2 NUCLEATED RBC # (test code=NRBC#) 0.00 K/mm3 0.0-0.1 MANUAL DIFF REQUIRED (test code=MDIFF) YES STAIN ACCEPTABILITY (test code=STN ACCEPTABLE) TOTAL CELLS COUNTED (test code=TCC) #CELLS SEGMENTED NEUTROPHILS (test code=SEG) % 39-69 LYMPHOCYTE (test code=LYMPH) % 25-55 MONOCYTE (test code=MON) % 0-10 MORPHOLOGY COMMENT (test code=MOC) PLATELET ESTIMATE (test code=PLTEST) PLATELET MORPHOLOGY (test code=PLTMORPH) CBC W/MANUAL [id number] 08:50:00* Test Item Value Reference Range Comments WHITE BLOOD CELL (test code=WBC) 9.4 K/mm3 4.5-12.5 RED BLOOD CELL (test code=RBC) 2.85 mill/mm3 4.0-5.8 HEMOGLOBIN (test code=HGB) 8.6 gram/dL 13.0-17.5 HEMATOCRIT (test code=HCT) 26.9 % 42.0-52.0 MEAN CELL VOLUME (test code=MCV) 94.4 fL 80-98 MEAN CELL HGB (test code=MCH) 30.2 picogram 27.0-33.0 MEAN CELL HGB CONCETRATION (test code=MCHC) 32.0 gram/dL 33.0-36.0 RED CELL DISTRIBUTION WIDTH (test code=RDW) 15.4 % 11.6-16.2 RED CELL DISTRIBUTION WIDTH SD (test code=RDW-SD) 52.6 fL 37.0-51.0 PLATELET COUNT (test code=PLT) 114 K/mm3 150-450 RESULT VERIFIED BY REPEAT ANALYSIS MEAN PLATELET VOLUME (test code=MPV) 9.1 fL 6.7-11.0 IMMATURE GRANULOCYTE % (test code=IG%) 1.6 % 0.0-5.0 NUCLEATED RBC % (test code=NRBC%) 0.0 % 0-0 NEUTROPHIL # (test code=NT#) 6.74 K/mm3 1.8-7.7 IMMATURE GRANULOCYTE # (test code=IG#) 0.15 x10 3/uL 0-0.03 LYMPHOCYTE # (test code=LY#) 1.22 K/mm3 1.0-5.0 MONOCYTE # (test code=MO#) 0.57 K/mm3 0-0.8 EOSINOPHIL # (test code=EO#) 0.70 K/mm3 0.0-0.5 BASOPHIL # (test code=BA#) 0.03 K/mm3 0.0-0.2 NUCLEATED RBC # (test code=NRBC#) 0.00 K/mm3 0.0-0.1 MANUAL DIFF REQUIRED (test code=MDIFF) YES STAIN ACCEPTABILITY (test code=STN ACCEPTABLE) TOTAL CELLS COUNTED (test code=TCC) #CELLS SEGMENTED NEUTROPHILS (test code=SEG) % 39-69 LYMPHOCYTE (test code=LYMPH) % 25-55 MONOCYTE (test code=MON) % 0-10 EOSINOPHIL (test code=EOS) % 0.0-5.0 CABOT RINGS (test code=CAB) MORPHOLOGY COMMENT (test code=MOC) PLATELET ESTIMATE (test code=PLTEST) PLATELET MORPHOLOGY (test code=PLTMORPH) [id number] 06:46:00* Test Item Value Reference Range Comments GLUBED (test code=GLUBED) 96 mg/dL 74-106 Performed by certified packer operator automatic at [facility] [id number] 21:54:00* Test Item Value Reference Range Comments GLUBED (test code=GLUBED) 110 mg/dL 74-106 Performed by certified packer operator automatic at [facility] [id number] 19:20:00* Test Item Value Reference Range Comments GLUBED (test code=GLUBED) 97 mg/dL 74-106 Performed by certified packer operator automatic at [facility] - US ABDOMEN [id number] 18:55:00 Name: REBEL ROD [facility] : 1950 Age/S: 68 / M [address] [facility] Unit #: [id number] Loc: [place] [address] Phys: Familia So MD Acct: [id number] Dis Date: Status: ADM IN PHONE #: [phone] Exam Date: 07/02/2019 1850 FAX #: [phone] Reason: Hepatospleenomegaly EXAMS: CPT CODE: [id number] US ABDOMEN COMPLETE [id number] REASON FOR EXAM: Hepatospleenomegaly EXAM ORDER DATE: 07/02/2019 1:32 PM Attending MMac.: Familia So MD PROCEDURE: - US ABDOMEN COMPLETE FINDINGS: The liver is nodular in contour. There is no evidence of focal mass identified. The pancreas is within normal limits. The right kidney was not seen. The left kidney measures 9 x 4.8 cm. There is no evidence of hydronephrosis. There is no evidence of nephrolithiasis. There is no evidence of renal mass. The spleen measures 14.4 cm. The gallbladder is contracted without evidence of gallstone.The common bile duct measures 0.4 cm. There is no evidence of ascites. The aorta and IVC are within normal limits. 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 Contracted gallbladder without evidence of g allstone at 1855 Reported and signed by: Kuldip Purdy M.D. CC: Familia So MD; Nate Rachel Technologist: Diann barron RDMS [facility] [place] Date/Time: 07/02/2019 (1854 ) tANATOLIYL Orig Print D/T: S: 07/02/2019 (1857) Prob e: PAGE 1 Signed Report [id number] 15:31:00* Test Item Value Reference Range Comments GLUBED (test code=GLUBED) 106 mg/dL 74-106 Performed by certified packer operator automatic at [facility] [id number] 07:51:00* Test Item Value Reference Range Comments GLUBED (test code=GLUBED) 92 mg/dL 74-106 Performed by certified packer operator automatic at [facility] [id number] 18:54:00* Test Item Value Reference Range Comments GLUBED (test code=GLUBED) 132 mg/dL 74-106 Performed by certified packer operator automatic at [facility] CBC W/MANUAL [id number] 12:13:00* Test Item Value Reference Range Comments WHITE BLOOD CELL (test code=WBC) 6.1 K/mm3 4.5-12.5 RED BLOOD CELL (test code=RBC) 2.80 mill/mm3 4.0-5.8 HEMOGLOBIN (test code=HGB) 8.4 gram/dL 13.0-17.5 HEMATOCRIT (test code=HCT) 26.4 % 42.0-52.0 MEAN CELL VOLUME (test code=MCV) 94.3 fL 80-98 MEAN CELL HGB (test code=MCH) 30.0 picogram 27.0-33.0 MEAN CELL HGB CONCETRATION (test code=MCHC) 31.8 gram/dL 33.0-36.0 RED CELL DISTRIBUTION WIDTH (test code=RDW) 15.6 % 11.6-16.2 RED CELL DISTRIBUTION WIDTH SD (test code=RDW-SD) 53.7 fL 37.0-51.0 PLATELET COUNT (test code=PLT) 45 K/mm3 150-450 RESULT VERIFIED BY REPEAT ANALYSISCritical results verified and read back by Nurse? Y MEAN PLATELET VOLUME (test code=MPV) 10.0 fL 6.7-11.0 IMMATURE GRANULOCYTE % (test code=IG%) 0.8 % 0.0-5.0 NUCLEATED RBC % (test code=NRBC%) 0.0 % 0-0 NEUTROPHIL # (test code=NT#) 4.15 K/mm3 1.8-7.7 IMMATURE GRANULOCYTE # (test code=IG#) 0.05 x10 3/uL 0-0.03 LYMPHOCYTE # (test code=LY#) 0.73 K/mm3 1.0-5.0 MONOCYTE # (test code=MO#) 0.65 K/mm3 0-0.8 EOSINOPHIL # (test code=EO#) 0.51 K/mm3 0.0-0.5 BASOPHIL # (test code=BA#) 0.02 K/mm3 0.0-0.2 NUCLEATED RBC # (test code=NRBC#) 0.00 K/mm3 0.0-0.1 MANUAL DIFF REQUIRED (test code=MDIFF) YES STAIN ACCEPTABILITY (test code=STN ACCEPTABLE) STAIN ACCEPTABLE TOTAL CELLS COUNTED (test code=TCC) 100 #CELLS SEGMENTED NEUTROPHILS (test code=SEG) 65 % 39-69 LYMPHOCYTE (test code=LYMPH) 16 % 25-55 MONOCYTE (test code=MON) 9 % 0-10 EOSINOPHIL (test code=EOS) 10 % 0.0-5.0 MORPHOLOGY COMMENT (test code=MOC) NORMAL PLATELET ESTIMATE (test code=PLTEST) DECREASED PLATELET MORPHOLOGY (test code=PLTMORPH) NORMAL 0636CBC W/MANUAL [id number] 10:45:00* Test Item Value Reference Range Comments WHITE BLOOD CELL (test code=WBC) 6.1 K/mm3 4.5-12.5 RED BLOOD CELL (test code=RBC) 2.80 mill/mm3 4.0-5.8 HEMOGLOBIN (test code=HGB) 8.4 gram/dL 13.0-17.5 HEMATOCRIT (test code=HCT) 26.4 % 42.0-52.0 MEAN CELL VOLUME (test code=MCV) 94.3 fL 80-98 MEAN CELL HGB (test code=MCH) 30.0 picogram 27.0-33.0 MEAN CELL HGB CONCETRATION (test code=MCHC) 31.8 gram/dL 33.0-36.0 RED CELL DISTRIBUTION WIDTH (test code=RDW) 15.6 % 11.6-16.2 RED CELL DISTRIBUTION WIDTH SD (test code=RDW-SD) 53.7 fL 37.0-51.0 PLATELET COUNT (test code=PLT) 45 K/mm3 150-450 RESULT VERIFIED BY REPEAT ANALYSISCritical results verified and read back by Nurse? Y MEAN PLATELET VOLUME (test code=MPV) 10.0 fL 6.7-11.0 IMMATURE GRANULOCYTE % (test code=IG%) 0.8 % 0.0-5.0 NUCLEATED RBC % (test code=NRBC%) 0.0 % 0-0 NEUTROPHIL # (test code=NT#) 4.15 K/mm3 1.8-7.7 IMMATURE GRANULOCYTE # (test code=IG#) 0.05 x10 3/uL 0-0.03 LYMPHOCYTE # (test code=LY#) 0.73 K/mm3 1.0-5.0 MONOCYTE # (test code=MO#) 0.65 K/mm3 0-0.8 EOSINOPHIL # (test code=EO#) 0.51 K/mm3 0.0-0.5 BASOPHIL # (test code=BA#) 0.02 K/mm3 0.0-0.2 NUCLEATED RBC # (test code=NRBC#) 0.00 K/mm3 0.0-0.1 MANUAL DIFF REQUIRED (test code=MDIFF) YES STAIN ACCEPTABILITY (test code=STN ACCEPTABLE) TOTAL CELLS COUNTED (test code=TCC) #CELLS SEGMENTED NEUTROPHILS (test code=SEG) % 39-69 LYMPHOCYTE (test code=LYMPH) % 25-55 MONOCYTE (test code=MON) % 0-10 EOSINOPHIL (test code=EOS) % 0.0-5.0 CABOT RINGS (test code=CAB) MORPHOLOGY COMMENT (test code=MOC) PLATELET ESTIMATE (test code=PLTEST) PLATELET MORPHOLOGY (test code=PLTMORPH) 0636CBC W/MANUAL [id number] 10:45:00* Test Item Value Reference Range Comments WHITE BLOOD CELL (test code=WBC) 6.1 K/mm3 4.5-12.5 RED BLOOD CELL (test code=RBC) 2.80 mill/mm3 4.0-5.8 HEMOGLOBIN (test code=HGB) 8.4 gram/dL 13.0-17.5 HEMATOCRIT (test code=HCT) 26.4 % 42.0-52.0 MEAN CELL VOLUME (test code=MCV) 94.3 fL 80-98 MEAN CELL HGB (test code=MCH) 30.0 picogram 27.0-33.0 MEAN CELL HGB CONCETRATION (test code=MCHC) 31.8 gram/dL 33.0-36.0 RED CELL DISTRIBUTION WIDTH (test code=RDW) 15.6 % 11.6-16.2 RED CELL DISTRIBUTION WIDTH SD (test code=RDW-SD) 53.7 fL 37.0-51.0 PLATELET COUNT (test code=PLT) 45 K/mm3 150-450 RESULT VERIFIED BY REPEAT ANALYSISCritical results verified and read back by Nurse? Y MEAN PLATELET VOLUME (test code=MPV) 10.0 fL 6.7-11.0 IMMATURE GRANULOCYTE % (test code=IG%) 0.8 % 0.0-5.0 NUCLEATED RBC % (test code=NRBC%) 0.0 % 0-0 NEUTROPHIL # (test code=NT#) 4.15 K/mm3 1.8-7.7 IMMATURE GRANULOCYTE # (test code=IG#) 0.05 x10 3/uL 0-0.03 LYMPHOCYTE # (test code=LY#) 0.73 K/mm3 1.0-5.0 MONOCYTE # (test code=MO#) 0.65 K/mm3 0-0.8 EOSINOPHIL # (test code=EO#) 0.51 K/mm3 0.0-0.5 BASOPHIL # (test code=BA#) 0.02 K/mm3 0.0-0.2 NUCLEATED RBC # (test code=NRBC#) 0.00 K/mm3 0.0-0.1 MANUAL DIFF REQUIRED (test code=MDIFF) YES STAIN ACCEPTABILITY (test code=STN ACCEPTABLE) TOTAL CELLS COUNTED (test code=TCC) #CELLS SEGMENTED NEUTROPHILS (test code=SEG) % 39-69 LYMPHOCYTE (test code=LYMPH) % 25-55 MONOCYTE (test code=MON) % 0-10 EOSINOPHIL (test code=EOS) % 0.0-5.0 MORPHOLOGY COMMENT (test code=MOC) PLATELET ESTIMATE (test code=PLTEST) PLATELET MORPHOLOGY (test code=PLTMORPH) 0636CBC W/MANUAL [id number] 10:45:00* Test Item Value Reference Range Comments WHITE BLOOD CELL (test code=WBC) 6.1 K/mm3 4.5-12.5 RED BLOOD CELL (test code=RBC) 2.80 mill/mm3 4.0-5.8 HEMOGLOBIN (test code=HGB) 8.4 gram/dL 13.0-17.5 HEMATOCRIT (test code=HCT) 26.4 % 42.0-52.0 MEAN CELL VOLUME (test code=MCV) 94.3 fL 80-98 MEAN CELL HGB (test code=MCH) 30.0 picogram 27.0-33.0 MEAN CELL HGB CONCETRATION (test code=MCHC) 31.8 gram/dL 33.0-36.0 RED CELL DISTRIBUTION WIDTH (test code=RDW) 15.6 % 11.6-16.2 RED CELL DISTRIBUTION WIDTH SD (test code=RDW-SD) 53.7 fL 37.0-51.0 PLATELET COUNT (test code=PLT) 45 K/mm3 150-450 RESULT VERIFIED BY REPEAT ANALYSISCritical results verified and read back by Nurse? Y MEAN PLATELET VOLUME (test code=MPV) 10.0 fL 6.7-11.0 IMMATURE GRANULOCYTE % (test code=IG%) 0.8 % 0.0-5.0 NUCLEATED RBC % (test code=NRBC%) 0.0 % 0-0 NEUTROPHIL # (test code=NT#) 4.15 K/mm3 1.8-7.7 IMMATURE GRANULOCYTE # (test code=IG#) 0.05 x10 3/uL 0-0.03 LYMPHOCYTE # (test code=LY#) 0.73 K/mm3 1.0-5.0 MONOCYTE # (test code=MO#) 0.65 K/mm3 0-0.8 EOSINOPHIL # (test code=EO#) 0.51 K/mm3 0.0-0.5 BASOPHIL # (test code=BA#) 0.02 K/mm3 0.0-0.2 NUCLEATED RBC # (test code=NRBC#) 0.00 K/mm3 0.0-0.1 MANUAL DIFF REQUIRED (test code=MDIFF) YES STAIN ACCEPTABILITY (test code=STN ACCEPTABLE) TOTAL CELLS COUNTED (test code=TCC) #CELLS SEGMENTED NEUTROPHILS (test code=SEG) % 39-69 LYMPHOCYTE (test code=LYMPH) % 25-55 MONOCYTE (test code=MON) % 0-10 MORPHOLOGY COMMENT (test code=MOC) PLATELET ESTIMATE (test code=PLTEST) PLATELET MORPHOLOGY (test code=PLTMORPH) 0636CBC W/MANUAL [id number] 10:44:00* Test Item Value Reference Range Comments WHITE BLOOD CELL (test code=WBC) 6.1 K/mm3 4.5-12.5 RED BLOOD CELL (test code=RBC) 2.80 mill/mm3 4.0-5.8 HEMOGLOBIN (test code=HGB) 8.4 gram/dL 13.0-17.5 HEMATOCRIT (test code=HCT) 26.4 % 42.0-52.0 MEAN CELL VOLUME (test code=MCV) 94.3 fL 80-98 MEAN CELL HGB (test code=MCH) 30.0 picogram 27.0-33.0 MEAN CELL HGB CONCETRATION (test code=MCHC) 31.8 gram/dL 33.0-36.0 RED CELL DISTRIBUTION WIDTH (test code=RDW) 15.6 % 11.6-16.2 RED CELL DISTRIBUTION WIDTH SD (test code=RDW-SD) 53.7 fL 37.0-51.0 PLATELET COUNT (test code=PLT) 45 K/mm3 150-450 RESULT VERIFIED BY REPEAT ANALYSISCritical results verified and read back by Nurse? Y MEAN PLATELET VOLUME (test code=MPV) 10.0 fL 6.7-11.0 IMMATURE GRANULOCYTE % (test code=IG%) 0.8 % 0.0-5.0 NUCLEATED RBC % (test code=NRBC%) 0.0 % 0-0 NEUTROPHIL # (test code=NT#) 4.15 K/mm3 1.8-7.7 IMMATURE GRANULOCYTE # (test code=IG#) 0.05 x10 3/uL 0-0.03 LYMPHOCYTE # (test code=LY#) 0.73 K/mm3 1.0-5.0 MONOCYTE # (test code=MO#) 0.65 K/mm3 0-0.8 EOSINOPHIL # (test code=EO#) 0.51 K/mm3 0.0-0.5 BASOPHIL # (test code=BA#) 0.02 K/mm3 0.0-0.2 NUCLEATED RBC # (test code=NRBC#) 0.00 K/mm3 0.0-0.1 MANUAL DIFF REQUIRED (test code=MDIFF) YES STAIN ACCEPTABILITY (test code=STN ACCEPTABLE) TOTAL CELLS COUNTED (test code=TCC) #CELLS SEGMENTED NEUTROPHILS (test code=SEG) % 39-69 LYMPHOCYTE (test code=LYMPH) % 25-55 MONOCYTE (test code=MON) % 0-10 EOSINOPHIL (test code=EOS) % 0.0-5.0 CABOT RINGS (test code=CAB) MORPHOLOGY COMMENT (test code=MOC) PLATELET ESTIMATE (test code=PLTEST) PLATELET MORPHOLOGY (test code=PLTMORPH) 0636CBC W/MANUAL [id number] 10:44:00* Test Item Value Reference Range Comments WHITE BLOOD CELL (test code=WBC) 6.1 K/mm3 4.5-12.5 RED BLOOD CELL (test code=RBC) 2.80 mill/mm3 4.0-5.8 HEMOGLOBIN (test code=HGB) 8.4 gram/dL 13.0-17.5 HEMATOCRIT (test code=HCT) 26.4 % 42.0-52.0 MEAN CELL VOLUME (test code=MCV) 94.3 fL 80-98 MEAN CELL HGB (test code=MCH) 30.0 picogram 27.0-33.0 MEAN CELL HGB CONCETRATION (test code=MCHC) 31.8 gram/dL 33.0-36.0 RED CELL DISTRIBUTION WIDTH (test code=RDW) 15.6 % 11.6-16.2 RED CELL DISTRIBUTION WIDTH SD (test code=RDW-SD) 53.7 fL 37.0-51.0 PLATELET COUNT (test code=PLT) 45 K/mm3 150-450 RESULT VERIFIED BY REPEAT ANALYSISCritical results verified and read back by Nurse? Y MEAN PLATELET VOLUME (test code=MPV) 10.0 fL 6.7-11.0 IMMATURE GRANULOCYTE % (test code=IG%) 0.8 % 0.0-5.0 NUCLEATED RBC % (test code=NRBC%) 0.0 % 0-0 NEUTROPHIL # (test code=NT#) 4.15 K/mm3 1.8-7.7 IMMATURE GRANULOCYTE # (test code=IG#) 0.05 x10 3/uL 0-0.03 LYMPHOCYTE # (test code=LY#) 0.73 K/mm3 1.0-5.0 MONOCYTE # (test code=MO#) 0.65 K/mm3 0-0.8 EOSINOPHIL # (test code=EO#) 0.51 K/mm3 0.0-0.5 BASOPHIL # (test code=BA#) 0.02 K/mm3 0.0-0.2 NUCLEATED RBC # (test code=NRBC#) 0.00 K/mm3 0.0-0.1 MANUAL DIFF REQUIRED (test code=MDIFF) YES STAIN ACCEPTABILITY (test code=STN ACCEPTABLE) TOTAL CELLS COUNTED (test code=TCC) #CELLS SEGMENTED NEUTROPHILS (test code=SEG) % 39-69 LYMPHOCYTE (test code=LYMPH) % 25-55 MONOCYTE (test code=MON) % 0-10 EOSINOPHIL (test code=EOS) % 0.0-5.0 CABOT RINGS (test code=CAB) MORPHOLOGY COMMENT (test code=MOC) PLATELET ESTIMATE (test code=PLTEST) PLATELET MORPHOLOGY (test code=PLTMORPH) 0636[facility] METABOLIC [id number] 10:16:00* Test Item Value Reference Range Comments SODIUM (test code=NA) 145 mmol/L 136-145 POTASSIUM (test code=K) 3.7 mmol/L 3.5-5.1 CHLORIDE (test code=CL) 115.0 mmol/L 98-107 CARBON DIOXIDE (test code=CO2) 22.0 mmol/L 21-32 ANION GAP (test code=GAP) 11.7 10-20 GLUCOSE (test code=GLU) 105 mg/dL 74-106 BLOOD UREA NITROGEN (test code=BUN) 42 mg/dL 7-18 GLOMERULAR FILTRATION RATE (test code=GFR) > 60 mL/min >=60 Estimated GFR by using Modified MDRD formula.Chronic kidney disease is defined as either kidney damageor GFR <60 mL/min/1.73 m2 for >3 months. CREATININE (test code=CREAT) 1.00 mg/dL 0.7-1.3 BUN/CREATININE RATIO (test code=BUN/CREA) 42.0 10-20 CALCIUM (test code=CA) 7.5 mg/dL 8.5-10.1 [id number] 10:16:00* Test Item Value Reference Range Comments PHOSPHORUS (test code=PHOS) 2.3 mg/dL 2.5-4.9 [id number] 10:16:00* Test Item Value Reference Range Comments MAGNESIUM (test code=MAG) 2.1 mg/dL 1.8-2.4 0635CALCIUM [id number] 10:16:00* Test Item Value Reference Range Comments CALCIUM IONIZED (test code=LYNDSEY) 1.16 mmol/L 1.12-1.32 0635BASIC METABOLIC [id number] 09:56:00* Test Item Value Reference Range Comments SODIUM (test code=NA) 145 mmol/L 136-145 POTASSIUM (test code=K) 3.7 mmol/L 3.5-5.1 CHLORIDE (test code=CL) 115.0 mmol/L 98-107 CARBON DIOXIDE (test code=CO2) 22.0 mmol/L 21-32 ANION GAP (test code=GAP) 11.7 10-20 GLUCOSE (test code=GLU) 105 mg/dL 74-106 BLOOD UREA NITROGEN (test code=BUN) 42 mg/dL 7-18 GLOMERULAR FILTRATION RATE (test code=GFR) > 60 mL/min >=60 Estimated GFR by using Modified MDRD formula.Chronic kidney disease is defined as either kidney damageor GFR <60 mL/min/1.73 m2 for >3 months. CREATININE (test code=CREAT) 1.00 mg/dL 0.7-1.3 BUN/CREATININE RATIO (test code=BUN/CREA) 42.0 10-20 CALCIUM (test code=CA) 7.5 mg/dL 8.5-10.1 [id number] 09:56:00* Test Item Value Reference Range Comments PHOSPHORUS (test code=PHOS) 2.3 mg/dL 2.5-4.9 [id number] 09:56:00* Test Item Value Reference Range Comments MAGNESIUM (test code=MAG) 2.1 mg/dL 1.8-2.4 35CALCIUM [id number] 09:56:00* Test Item Value Reference Range Comments CALCIUM IONIZED (test code=LYNDSEY) mmol/L 1.12-1.32 [id number] 05:46:00* Test Item Value Reference Range Comments GLUBED (test code=GLUBED) 100 mg/dL 74-106 Performed by certified packer operator automatic at [facility] [id number] 20:29:00* Test Item Value Reference Range Comments GLUBED (test code=GLUBED) 110 mg/dL 74-106 Performed by certified packer operator automatic at [facility] [id number] 16:11:00* Test Item Value Reference Range Comments GLUBED (test code=GLUBED) 122 mg/dL 74-106 Performed by certified packer operator automatic at [facility] CBC W/AUTO [id number] 13:24:00* Test Item Value Reference Range Comments WHITE BLOOD CELL (test code=WBC) 7.8 K/mm3 4.5-12.5 RED BLOOD CELL (test code=RBC) 2.76 mill/mm3 4.0-5.8 HEMOGLOBIN (test code=HGB) 8.4 gram/dL 13.0-17.5 HEMATOCRIT (test code=HCT) 25.6 % 42.0-52.0 MEAN CELL VOLUME (test code=MCV) 92.8 fL 80-98 MEAN CELL HGB (test code=MCH) 30.4 picogram 27.0-33.0 MEAN CELL HGB CONCETRATION (test code=MCHC) 32.8 gram/dL 33.0-36.0 RED CELL DISTRIBUTION WIDTH (test code=RDW) 15.5 % 11.6-16.2 RED CELL DISTRIBUTION WIDTH SD (test code=RDW-SD) 52.9 fL 37.0-51.0 PLATELET COUNT (test code=PLT) 40 K/mm3 150-450 Results called to [id number] by ANTOINETTE 06/30/19 1246Critical results verified and read back by Nurse? Y MEAN PLATELET VOLUME (test code=MPV) 9.6 fL 6.7-11.0 NEUTROPHIL % (test code=NT%) 77.2 % 39.0-69.0 IMMATURE GRANULOCYTE % (test code=IG%) 1.0 % 0.0-5.0 LYMPHOCYTE % (test code=LY%) 8.9 % 25.0-55.0 MONOCYTE % (test code=MO%) 7.2 % 0.0-10.0 EOSINOPHIL % (test code=EO%) 5.4 % 0.0-5.0 BASOPHIL % (test code=BA%) 0.3 % 0.0-1.0 NUCLEATED RBC % (test code=NRBC%) 0.0 % 0-0 NEUTROPHIL # (test code=NT#) 5.99 K/mm3 1.8-7.7 IMMATURE GRANULOCYTE # (test code=IG#) 0.08 x10 3/uL 0-0.03 LYMPHOCYTE # (test code=LY#) 0.69 K/mm3 1.0-5.0 MONOCYTE # (test code=MO#) 0.56 K/mm3 0-0.8 EOSINOPHIL # (test code=EO#) 0.42 K/mm3 0.0-0.5 BASOPHIL # (test code=BA#) 0.02 K/mm3 0.0-0.2 NUCLEATED RBC # (test code=NRBC#) 0.00 K/mm3 0.0-0.1 MANUAL DIFF REQUIRED (test code=MDIFF) NO, ONLY SCAN NEEDED DIFFERENTIAL [id number] 13:24:00* Test Item Value Reference Range Comments STAIN ACCEPTABILITY (test code=STN ACCEPTABLE) STAIN ACCEPTABLE PLATELET ESTIMATE (test code=PLTEST) DECREASED PLATELET MORPHOLOGY (test code=PLTMORPH) NORMAL PROCALCITONIN (PCT)[id number] 13:13:00* Test Item Value Reference Range Comments PROCALCITONIN (PCT) (test code=PROCAL) 16.59 ng/ml Concentration Interpretation (ng/mL) <0.51 Sepsis is not likely. Local bacterial infection is possible. (LOW RISK for progression to Sepsis) 0.51 - 2.00 Sepsis is possible, but other conditions are known to elevate PCT as well. (MODERATE RISK for progression to Sepsis) > 2.00 Sepsis is likely, unless other causes are known. (HIGH RISK for progression to Severe Sepsis or Septic Shock) 10.00 High likelihood of Severe Sepsis or Septic or higher Shock. *Increased PCT levels may not always be related to systemic bacterial infection.*Low PCT levels do not automatically exclude the presence of bacterial infection.*All results should be interpreted taking into account the patients history. CBC W/AUTO [id number] 12:49:00* Test Item Value Reference Range Comments WHITE BLOOD CELL (test code=WBC) 7.8 K/mm3 4.5-12.5 RED BLOOD CELL (test code=RBC) 2.76 mill/mm3 4.0-5.8 HEMOGLOBIN (test code=HGB) 8.4 gram/dL 13.0-17.5 HEMATOCRIT (test code=HCT) 25.6 % 42.0-52.0 MEAN CELL VOLUME (test code=MCV) 92.8 fL 80-98 MEAN CELL HGB (test code=MCH) 30.4 picogram 27.0-33.0 MEAN CELL HGB CONCETRATION (test code=MCHC) 32.8 gram/dL 33.0-36.0 RED CELL DISTRIBUTION WIDTH (test code=RDW) 15.5 % 11.6-16.2 RED CELL DISTRIBUTION WIDTH SD (test code=RDW-SD) 52.9 fL 37.0-51.0 PLATELET COUNT (test code=PLT) 40 K/mm3 150-450 Results called to [id number] by ANTOINETTE 06/30/19 1246Critical results verified and read back by Nurse? Y MEAN PLATELET VOLUME (test code=MPV) 9.6 fL 6.7-11.0 NEUTROPHIL % (test code=NT%) 77.2 % 39.0-69.0 IMMATURE GRANULOCYTE % (test code=IG%) 1.0 % 0.0-5.0 LYMPHOCYTE % (test code=LY%) 8.9 % 25.0-55.0 MONOCYTE % (test code=MO%) 7.2 % 0.0-10.0 EOSINOPHIL % (test code=EO%) 5.4 % 0.0-5.0 BASOPHIL % (test code=BA%) 0.3 % 0.0-1.0 NUCLEATED RBC % (test code=NRBC%) 0.0 % 0-0 NEUTROPHIL # (test code=NT#) 5.99 K/mm3 1.8-7.7 IMMATURE GRANULOCYTE # (test code=IG#) 0.08 x10 3/uL 0-0.03 LYMPHOCYTE # (test code=LY#) 0.69 K/mm3 1.0-5.0 MONOCYTE # (test code=MO#) 0.56 K/mm3 0-0.8 EOSINOPHIL # (test code=EO#) 0.42 K/mm3 0.0-0.5 BASOPHIL # (test code=BA#) 0.02 K/mm3 0.0-0.2 NUCLEATED RBC # (test code=NRBC#) 0.00 K/mm3 0.0-0.1 MANUAL DIFF REQUIRED (test code=MDIFF) NO, ONLY SCAN NEEDED DIFFERENTIAL [id number] 12:49:00* Test Item Value Reference Range Comments STAIN ACCEPTABILITY (test code=STN ACCEPTABLE) MORPHOLOGY COMMENT (test code=MOC) PLATELET ESTIMATE (test code=PLTEST) PLATELET MORPHOLOGY (test code=PLTMORPH) CBC W/AUTO [id number] 12:47:00* Test Item Value Reference Range Comments WHITE BLOOD CELL (test code=WBC) 7.8 K/mm3 4.5-12.5 RED BLOOD CELL (test code=RBC) 2.76 mill/mm3 4.0-5.8 HEMOGLOBIN (test code=HGB) 8.4 gram/dL 13.0-17.5 HEMATOCRIT (test code=HCT) 25.6 % 42.0-52.0 MEAN CELL VOLUME (test code=MCV) 92.8 fL 80-98 MEAN CELL HGB (test code=MCH) 30.4 picogram 27.0-33.0 MEAN CELL HGB CONCETRATION (test code=MCHC) 32.8 gram/dL 33.0-36.0 RED CELL DISTRIBUTION WIDTH (test code=RDW) 15.5 % 11.6-16.2 RED CELL DISTRIBUTION WIDTH SD (test code=RDW-SD) 52.9 fL 37.0-51.0 PLATELET COUNT (test code=PLT) 40 K/mm3 150-450 Results called to [id number] by ANTOINETTE 06/30/19 1246Critical results verified and read back by Nurse? Y MEAN PLATELET VOLUME (test code=MPV) 9.6 fL 6.7-11.0 NEUTROPHIL % (test code=NT%) 77.2 % 39.0-69.0 IMMATURE GRANULOCYTE % (test code=IG%) 1.0 % 0.0-5.0 LYMPHOCYTE % (test code=LY%) 8.9 % 25.0-55.0 MONOCYTE % (test code=MO%) 7.2 % 0.0-10.0 EOSINOPHIL % (test code=EO%) 5.4 % 0.0-5.0 BASOPHIL % (test code=BA%) 0.3 % 0.0-1.0 NUCLEATED RBC % (test code=NRBC%) 0.0 % 0-0 NEUTROPHIL # (test code=NT#) 5.99 K/mm3 1.8-7.7 IMMATURE GRANULOCYTE # (test code=IG#) 0.08 x10 3/uL 0-0.03 LYMPHOCYTE # (test code=LY#) 0.69 K/mm3 1.0-5.0 MONOCYTE # (test code=MO#) 0.56 K/mm3 0-0.8 EOSINOPHIL # (test code=EO#) 0.42 K/mm3 0.0-0.5 BASOPHIL # (test code=BA#) 0.02 K/mm3 0.0-0.2 NUCLEATED RBC # (test code=NRBC#) 0.00 K/mm3 0.0-0.1 MANUAL DIFF REQUIRED (test code=MDIFF) NO, ONLY SCAN NEEDED DIFFERENTIAL [id number] 12:47:00* Test Item Value Reference Range Comments STAIN ACCEPTABILITY (test code=STN ACCEPTABLE) CABOT RINGS (test code=CAB) MORPHOLOGY COMMENT (test code=MOC) PLATELET ESTIMATE (test code=PLTEST) PLATELET MORPHOLOGY (test code=PLTMORPH) CBC W/AUTO [id number] 12:47:00* Test Item Value Reference Range Comments WHITE BLOOD CELL (test code=WBC) 7.8 K/mm3 4.5-12.5 RED BLOOD CELL (test code=RBC) 2.76 mill/mm3 4.0-5.8 HEMOGLOBIN (test code=HGB) 8.4 gram/dL 13.0-17.5 HEMATOCRIT (test code=HCT) 25.6 % 42.0-52.0 MEAN CELL VOLUME (test code=MCV) 92.8 fL 80-98 MEAN CELL HGB (test code=MCH) 30.4 picogram 27.0-33.0 MEAN CELL HGB CONCETRATION (test code=MCHC) 32.8 gram/dL 33.0-36.0 RED CELL DISTRIBUTION WIDTH (test code=RDW) 15.5 % 11.6-16.2 RED CELL DISTRIBUTION WIDTH SD (test code=RDW-SD) 52.9 fL 37.0-51.0 PLATELET COUNT (test code=PLT) 40 K/mm3 150-450 Results called to [id number] by ANTOINETTE 06/30/19 1246Critical results verified and read back by Nurse? Y MEAN PLATELET VOLUME (test code=MPV) 9.6 fL 6.7-11.0 NEUTROPHIL % (test code=NT%) 77.2 % 39.0-69.0 IMMATURE GRANULOCYTE % (test code=IG%) 1.0 % 0.0-5.0 LYMPHOCYTE % (test code=LY%) 8.9 % 25.0-55.0 MONOCYTE % (test code=MO%) 7.2 % 0.0-10.0 EOSINOPHIL % (test code=EO%) 5.4 % 0.0-5.0 BASOPHIL % (test code=BA%) 0.3 % 0.0-1.0 NUCLEATED RBC % (test code=NRBC%) 0.0 % 0-0 NEUTROPHIL # (test code=NT#) 5.99 K/mm3 1.8-7.7 IMMATURE GRANULOCYTE # (test code=IG#) 0.08 x10 3/uL 0-0.03 LYMPHOCYTE # (test code=LY#) 0.69 K/mm3 1.0-5.0 MONOCYTE # (test code=MO#) 0.56 K/mm3 0-0.8 EOSINOPHIL # (test code=EO#) 0.42 K/mm3 0.0-0.5 BASOPHIL # (test code=BA#) 0.02 K/mm3 0.0-0.2 NUCLEATED RBC # (test code=NRBC#) 0.00 K/mm3 0.0-0.1 MANUAL DIFF REQUIRED (test code=MDIFF) NO, ONLY SCAN NEEDED DIFFERENTIAL [id number] 12:47:00* Test Item Value Reference Range Comments STAIN ACCEPTABILITY (test code=STN ACCEPTABLE) MORPHOLOGY COMMENT (test code=MOC) PLATELET ESTIMATE (test code=PLTEST) PLATELET MORPHOLOGY (test code=PLTMORPH) CBC W/AUTO [id number] 12:47:00* Test Item Value Reference Range Comments WHITE BLOOD CELL (test code=WBC) 7.8 K/mm3 4.5-12.5 RED BLOOD CELL (test code=RBC) 2.76 mill/mm3 4.0-5.8 HEMOGLOBIN (test code=HGB) 8.4 gram/dL 13.0-17.5 HEMATOCRIT (test code=HCT) 25.6 % 42.0-52.0 MEAN CELL VOLUME (test code=MCV) 92.8 fL 80-98 MEAN CELL HGB (test code=MCH) 30.4 picogram 27.0-33.0 MEAN CELL HGB CONCETRATION (test code=MCHC) 32.8 gram/dL 33.0-36.0 RED CELL DISTRIBUTION WIDTH (test code=RDW) 15.5 % 11.6-16.2 RED CELL DISTRIBUTION WIDTH SD (test code=RDW-SD) 52.9 fL 37.0-51.0 PLATELET COUNT (test code=PLT) 40 K/mm3 150-450 Results called to [id number] by ANTOINETTE 06/30/19 1246Critical results verified and read back by Nurse? Y MEAN PLATELET VOLUME (test code=MPV) 9.6 fL 6.7-11.0 NEUTROPHIL % (test code=NT%) 77.2 % 39.0-69.0 IMMATURE GRANULOCYTE % (test code=IG%) 1.0 % 0.0-5.0 LYMPHOCYTE % (test code=LY%) 8.9 % 25.0-55.0 MONOCYTE % (test code=MO%) 7.2 % 0.0-10.0 EOSINOPHIL % (test code=EO%) 5.4 % 0.0-5.0 BASOPHIL % (test code=BA%) 0.3 % 0.0-1.0 NUCLEATED RBC % (test code=NRBC%) 0.0 % 0-0 NEUTROPHIL # (test code=NT#) 5.99 K/mm3 1.8-7.7 IMMATURE GRANULOCYTE # (test code=IG#) 0.08 x10 3/uL 0-0.03 LYMPHOCYTE # (test code=LY#) 0.69 K/mm3 1.0-5.0 MONOCYTE # (test code=MO#) 0.56 K/mm3 0-0.8 EOSINOPHIL # (test code=EO#) 0.42 K/mm3 0.0-0.5 BASOPHIL # (test code=BA#) 0.02 K/mm3 0.0-0.2 NUCLEATED RBC # (test code=NRBC#) 0.00 K/mm3 0.0-0.1 MANUAL DIFF REQUIRED (test code=MDIFF) NO, ONLY SCAN NEEDED DIFFERENTIAL [id number] 12:47:00* Test Item Value Reference Range Comments STAIN ACCEPTABILITY (test code=STN ACCEPTABLE) CABOT RINGS (test code=CAB) MORPHOLOGY COMMENT (test code=MOC) PLATELET ESTIMATE (test code=PLTEST) PLATELET MORPHOLOGY (test code=PLTMORPH) [id number] 11:47:00* Test Item Value Reference Range Comments GLUBED (test code=GLUBED) 118 mg/dL 74-106 Performed by certified packer operator automatic at [facility] [id number] 07:56:00* Test Item Value Reference Range Comments GLUBED (test code=GLUBED) 119 mg/dL 74-106 Performed by certified packer operator automatic at [facility] BASIC METABOLIC [id number] 05:57:00* Test Item Value Reference Range Comments SODIUM (test code=NA) 143 mmol/L 136-145 POTASSIUM (test code=K) 3.1 mmol/L 3.5-5.1 CHLORIDE (test code=CL) 113.0 mmol/L 98-107 CARBON DIOXIDE (test code=CO2) 22.0 mmol/L 21-32 ANION GAP (test code=GAP) 11.1 10-20 GLUCOSE (test code=GLU) 130 mg/dL 74-106 BLOOD UREA NITROGEN (test code=BUN) 46 mg/dL 7-18 GLOMERULAR FILTRATION RATE (test code=GFR) > 60 mL/min >=60 Estimated GFR by using Modified MDRD formula.Chronic kidney disease is defined as either kidney damageor GFR <60 mL/min/1.73 m2 for >3 months. CREATININE (test code=CREAT) 1.10 mg/dL 0.7-1.3 BUN/CREATININE RATIO (test code=BUN/CREA) 41.8 10-20 CALCIUM (test code=CA) 7.3 mg/dL 8.5-10.1 [id number] 05:57:00* Test Item Value Reference Range Comments PHOSPHORUS (test code=PHOS) 2.1 mg/dL 2.5-4.9 [id number] 05:57:00* Test Item Value Reference Range Comments MAGNESIUM (test code=MAG) 1.7 mg/dL 1.8-2.4 CALCIUM [id number] 05:57:00* Test Item Value Reference Range Comments CALCIUM IONIZED (test code=LYNDSEY) 1.15 mmol/L 1.12-1.32 BASIC METABOLIC [id number] 05:36:00* Test Item Value Reference Range Comments SODIUM (test code=NA) mmol/L 136-145 POTASSIUM (test code=K) mmol/L 3.5-5.1 CHLORIDE (test code=CL) mmol/L 98-107 CARBON DIOXIDE (test code=CO2) mmol/L 21-32 ANION GAP (test code=GAP) 10-20 GLUCOSE (test code=GLU) mg/dL 74-106 BLOOD UREA NITROGEN (test code=BUN) mg/dL 7-18 GLOMERULAR FILTRATION RATE (test code=GFR) mL/min >=60 CREATININE (test code=CREAT) mg/dL 0.7-1.3 BUN/CREATININE RATIO (test code=BUN/CREA) 10-20 CALCIUM (test code=CA) mg/dL 8.5-10.1 [id number] 05:36:00* Test Item Value Reference Range Comments PHOSPHORUS (test code=PHOS) mg/dL 2.5-4.9 [id number] 05:36:00* Test Item Value Reference Range Comments MAGNESIUM (test code=MAG) mg/dL 1.8-2.4 CALCIUM [id number] 05:36:00* Test Item Value Reference Range Comments CALCIUM IONIZED (test code=LYNDSEY) 1.15 mmol/L 1.12-1.32 HEPARIN INDUCED [id number] 20:23:00* Test Item Value Reference Range Comments HEPARIN INDUCED THROMBOCYTOPEN (test code=HIT) NEGATIVE NEGATIVE [id number] 19:34:00* Test Item Value Reference Range Comments GLUBED (test code=GLUBED) 118 mg/dL 74-106 Performed by certified packer operator automatic at [facility] [id number] 16:14:00* Test Item Value Reference Range Comments GLUBED (test code=GLUBED) 126 mg/dL 74-106 Performed by certified packer operator automatic at [facility] [id number] 12:36:00* Test Item Value Reference Range Comments GLUBED (test code=GLUBED) 114 mg/dL 74-106 Performed by certified packer operator automatic at [facility] CBC W/AUTO [id number] 09:51:00* Test Item Value Reference Range Comments WHITE BLOOD CELL (test code=WBC) 12.2 K/mm3 4.5-12.5 RED BLOOD CELL (test code=RBC) 3.08 mill/mm3 4.0-5.8 HEMOGLOBIN (test code=HGB) 9.5 gram/dL 13.0-17.5 HEMATOCRIT (test code=HCT) 28.4 % 42.0-52.0 MEAN CELL VOLUME (test code=MCV) 92.2 fL 80-98 MEAN CELL HGB (test code=MCH) 30.8 picogram 27.0-33.0 MEAN CELL HGB CONCETRATION (test code=MCHC) 33.5 gram/dL 33.0-36.0 RED CELL DISTRIBUTION WIDTH (test code=RDW) 15.6 % 11.6-16.2 RED CELL DISTRIBUTION WIDTH SD (test code=RDW-SD) 52.5 fL 37.0-51.0 PLATELET COUNT (test code=PLT) 44 K/mm3 150-450 Results called to [id number] by Jada.[email or web address] 06/29/19 0951Critical results verified and read back by Nurse? Y MEAN PLATELET VOLUME (test code=MPV) 9.6 fL 6.7-11.0 NEUTROPHIL % (test code=NT%) 84.1 % 39.0-69.0 IMMATURE GRANULOCYTE % (test code=IG%) 0.7 % 0.0-5.0 LYMPHOCYTE % (test code=LY%) 7.0 % 25.0-55.0 MONOCYTE % (test code=MO%) 5.1 % 0.0-10.0 EOSINOPHIL % (test code=EO%) 2.6 % 0.0-5.0 BASOPHIL % (test code=BA%) 0.5 % 0.0-1.0 NUCLEATED RBC % (test code=NRBC%) 0.0 % 0-0 NEUTROPHIL # (test code=NT#) 10.29 K/mm3 1.8-7.7 IMMATURE GRANULOCYTE # (test code=IG#) 0.09 x10 3/uL 0-0.03 LYMPHOCYTE # (test code=LY#) 0.86 K/mm3 1.0-5.0 MONOCYTE # (test code=MO#) 0.62 K/mm3 0-0.8 EOSINOPHIL # (test code=EO#) 0.32 K/mm3 0.0-0.5 BASOPHIL # (test code=BA#) 0.06 K/mm3 0.0-0.2 NUCLEATED RBC # (test code=NRBC#) 0.00 K/mm3 0.0-0.1 - XR CHEST 1 [id number] 07:32:00 FAX: Ivette Costa NP [phone] [place]: St: ADM FAX: Nate Hollis MD Name: REBEL ROD [facility] : 1950 Age/S: 68/M [address] [facility] Unit #: [id number] Loc: [place] [address] Phys: Ivette Costa NP Acct: [id number] Dis Date: Status: ADM IN PHONE #: [phone] Exam Date: 06/29/2019 0530 FAX #: [phone] Reason: sob EXAMS: CPT CODE: [id number] XR CHEST 1 V 64569 CLINICAL HISTORY: Shortness of breath TECHNIQUE: AP chest x-ray COMPARISON: Previous day. IMPRESSION: Improved bilateral pulmonary congestion and small effusions. Elevated right hemidiaphragm with basilar atelectasis. Cardiomegaly. Right central venous catheter is removed. at 0732 Reported and signed by: Gabbi Donnelly D.O. CC: Ivette Costa HAND STITCHER; Nate Rachel Technologist: JUN WRIGHT RT; AJAY COREA RT(R) Trnscrd Date/Time/By: 06/29/2019 (0732) : By: [email or web address] Orig Print D/T: S: 06/29/2019 (0709) PAGE 1 Signed Report PROCALCITONIN (PCT)2019-06-29 07:29:00* Test Item Value Reference Range Comments PROCALCITONIN (PCT) (test code=PROCAL) 33.64 ng/ml Concentration Interpretation (ng/mL) <0.51 Sepsis is not likely. Local bacterial infection is possible. (LOW RISK for progression to Sepsis) 0.51 - 2.00 Sepsis is possible, but other conditions are known to elevate PCT as well. (MODERATE RISK for progression to Sepsis) > 2.00 Sepsis is likely, unless other causes are known. (HIGH RISK for progression to Severe Sepsis or Septic Shock) 10.00 High likelihood of Severe Sepsis or Septic or higher Shock. *Increased PCT levels may not always be related to systemic bacterial infection.*Low PCT levels do not automatically exclude the presence of bacterial infection.*All results should be interpreted taking into account the patients history. BASIC METABOLIC [id number] 07:17:00* Test Item Value Reference Range Comments SODIUM (test code=NA) 142 mmol/L 136-145 POTASSIUM (test code=K) 3.5 mmol/L 3.5-5.1 CHLORIDE (test code=CL) 114.0 mmol/L 98-107 CARBON DIOXIDE (test code=CO2) 20.0 mmol/L 21-32 ANION GAP (test code=GAP) 11.5 10-20 GLUCOSE (test code=GLU) 99 mg/dL 74-106 BLOOD UREA NITROGEN (test code=BUN) 48 mg/dL 7-18 GLOMERULAR FILTRATION RATE (test code=GFR) 51 mL/min >=60 Estimated GFR by using Modified MDRD formula.Chronic kidney disease is defined as either kidney damageor GFR <60 mL/min/1.73 m2 for >3 months. CREATININE (test code=CREAT) 1.40 mg/dL 0.7-1.3 BUN/CREATININE RATIO (test code=BUN/CREA) 35.6 10-20 CALCIUM (test code=CA) 7.6 mg/dL 8.5-10.1 [id number] 07:17:00* Test Item Value Reference Range Comments PHOSPHORUS (test code=PHOS) 2.7 mg/dL 2.5-4.9 [id number] 07:17:00* Test Item Value Reference Range Comments MAGNESIUM (test code=MAG) 1.8 mg/dL 1.8-2.4 CALCIUM [id number] 07:17:00* Test Item Value Reference Range Comments CALCIUM IONIZED (test code=LYNDSEY) 1.17 mmol/L 1.12-1.32 BASIC METABOLIC [id number] 07:06:00* Test Item Value Reference Range Comments SODIUM (test code=NA) 142 mmol/L 136-145 POTASSIUM (test code=K) 3.5 mmol/L 3.5-5.1 CHLORIDE (test code=CL) 114.0 mmol/L 98-107 CARBON DIOXIDE (test code=CO2) mmol/L 21-32 ANION GAP (test code=GAP) 10-20 GLUCOSE (test code=GLU) mg/dL 74-106 BLOOD UREA NITROGEN (test code=BUN) mg/dL 7-18 GLOMERULAR FILTRATION RATE (test code=GFR) mL/min >=60 CREATININE (test code=CREAT) mg/dL 0.7-1.3 BUN/CREATININE RATIO (test code=BUN/CREA) 10-20 CALCIUM (test code=CA) mg/dL 8.5-10.1 [id number] 07:06:00* Test Item Value Reference Range Comments PHOSPHORUS (test code=PHOS) mg/dL 2.5-4.9 [id number] 07:06:00* Test Item Value Reference Range Comments MAGNESIUM (test code=MAG) mg/dL 1.8-2.4 CALCIUM [id number] 07:06:00* Test Item Value Reference Range Comments CALCIUM IONIZED (test code=LYNDSEY) 1.17 mmol/L 1.12-1.32 BASIC METABOLIC [id number] 07:02:00* Test Item Value Reference Range Comments SODIUM (test code=NA) mmol/L 136-145 POTASSIUM (test code=K) mmol/L 3.5-5.1 CHLORIDE (test code=CL) mmol/L 98-107 CARBON DIOXIDE (test code=CO2) mmol/L 21-32 ANION GAP (test code=GAP) 10-20 GLUCOSE (test code=GLU) mg/dL 74-106 BLOOD UREA NITROGEN (test code=BUN) mg/dL 7-18 GLOMERULAR FILTRATION RATE (test code=GFR) mL/min >=60 CREATININE (test code=CREAT) mg/dL 0.7-1.3 BUN/CREATININE RATIO (test code=BUN/CREA) 10-20 CALCIUM (test code=CA) mg/dL 8.5-10.1 [id number] 07:02:00* Test Item Value Reference Range Comments PHOSPHORUS (test code=PHOS) mg/dL 2.5-4.9 [id number] 07:02:00* Test Item Value Reference Range Comments MAGNESIUM (test code=MAG) mg/dL 1.8-2.4 CALCIUM [id number] 07:02:00* Test Item Value Reference Range Comments CALCIUM IONIZED (test code=LYNDSEY) 1.17 mmol/L 1.12-1.32 [id number] 23:18:00* Test Item Value Reference Range Comments GLUBED (test code=GLUBED) 102 mg/dL 74-106 Performed by certified packer operator automatic at [facility] [id number] 15:53:00* Test Item Value Reference Range Comments GLUBED (test code=GLUBED) 121 mg/dL 74-106 Performed by certified packer operator automatic at [facility] ARTERIAL BLOOD [id number] 14:30:00* Test Item Value Reference Range Comments ARTERIAL BLOOD GAS PH (test code=PHA) 7.39 7.35-7.45 ARTERIAL BLOOD GAS PCO2 (test code=PCO2A) 20.6 mm Hg 35-45 Results called to and read back by dr desai 14:06/28/2019; by liat ARTERIAL BLOOD GAS PO2 (test code=PO2A) 70.2 mmHg 80-100 BICARBONATE TOTAL HCO3 (test code=HCO3) 12.2 mmol/L 23.0-27.0 BASE EXCESS (test code=SOTO) -11.1 mmol/L -3.0-5.0 Results called to and read back by dr desai 14:06/28/2019; by liat ABG O2 SATURATION (test code=SATA) 93.4 % 90.0-98.0 ABG TYPE (test code=TYPEA) Arterial FIO2 (test code=FIO2A) 21.0 ABG SITE (test code=SITEA) Rt RADIAL ARTERY HEMATOCRIT (test code=HCT/ABG) 28 % 42-52 TOTAL HGB (test code=THB) 9.6 gram/dL 13.0-17.5 HGB O2 SAT (test code=HBOSAT) 92.9 % 94.00-98.00 CARBOXYHEMOGLOBIN (test code=HOHGBT) 0.3 %totalHg 0.5-1.5 Results called to and read back by dr desai 14:06/28/2019; by liat METHEMOGLOBIN (test code=METHGB) 0.2 % 0.0-1.50 O2 CONTENT (test code=O2CT) 12.6 % vol 18.0-22.0 [id number] 12:56:00* Test Item Value Reference Range Comments GLUBED (test code=GLUBED) 111 mg/dL 74-106 Performed by certified packer operator automatic at [facility] - XR CHEST 1 [id number] 08:03:00 FAX: Ivette Costa NP [phone] [place]: B St: [facility] FAX: Nate Hollis MD Name: REBEL ROD [facility] : 1950 Age/S: 68/M [facility] Unit #: [id number] Loc: [place], [place] [address] Phys: Ievtte Costa NP Acct: [id number] Dis Date: Status: ADM IN PHONE #: [phone] Exam Date: 06/28/2019712 FAX #: [phone] Reason: sob EXAMS: CPT CODE: [id number] XR CHEST 1 V 25433 REASON FOR EXAM: sob EXAM ORDER DATE: 06/28/2019 5:00 AM Ordering Ivan: Ivette Costa NP PROCEDURE: - XR CHEST 1 V COMPARISON: 06/27/2019 FINDINGS: Portable AP frontal view of the chest obtained at 7:13 AM shows mild patchy airspace opacity of the lungs. The heart size is minimally enlarged. Pulmonary vasculatures are minimally congested. Stable appearance of the right IJ central line. IMPRESSION: Congestive heart failure with pulmonary edema and small bilateral pleural effusions at 0803 Reported and signed by: Kuldip Purdy M.D. CC: Ivette Costa HAND STITCHER; Nate Rachel Technologist: ORIANA PÉREZ RT (R); MARCELLE MADRID RT(R) Trnscrd Date/Time/By: 06/28/2019 (802) : By: Reji Orig Print D/T: S: 06/28/2019 (805) PAGE 1 Signed Report LACTIC [id number] 07:22:00* Test Item Value Reference Range Comments LACTIC ACID (test code=LACT) 1.7 mmol/L 0.4-1.9 LACTIC [id number] 03:52:00* Test Item Value Reference Range Comments LACTIC ACID (test code=LACT) 3.1 mmol/L 0.4-1.9 Results called to [id number] by IRENEAG1 06/28/19 0352Critical results verified and read back by Nurse? Y BASIC METABOLIC [id number] 03:37:00* Test Item Value Reference Range Comments SODIUM (test code=NA) 142 mmol/L 136-145 POTASSIUM (test code=K) 4.2 mmol/L 3.5-5.1 CHLORIDE (test code=CL) 115.0 mmol/L 98-107 CARBON DIOXIDE (test code=CO2) 16.0 mmol/L 21-32 ANION GAP (test code=GAP) 15.2 10-20 GLUCOSE (test code=GLU) 99 mg/dL 74-106 BLOOD UREA NITROGEN (test code=BUN) 47 mg/dL 7-18 GLOMERULAR FILTRATION RATE (test code=GFR) 32 mL/min >=60 Estimated GFR by using Modified MDRD formula.Chronic kidney disease is defined as either kidney damageor GFR <60 mL/min/1.73 m2 for >3 months. CREATININE (test code=CREAT) 2.10 mg/dL 0.7-1.3 BUN/CREATININE RATIO (test code=BUN/CREA) 22.7 10-20 CALCIUM (test code=CA) 7.5 mg/dL 8.5-10.1 [id number] 03:37:00* Test Item Value Reference Range Comments PHOSPHORUS (test code=PHOS) 4.2 mg/dL 2.5-4.9 [id number] 03:37:00* Test Item Value Reference Range Comments MAGNESIUM (test code=MAG) 1.5 mg/dL 1.8-2.4 CALCIUM [id number] 03:37:00* Test Item Value Reference Range Comments CALCIUM IONIZED (test code=LYNDSEY) 1.11 mmol/L 1.12-1.32 BASIC METABOLIC [id number] 03:32:00* Test Item Value Reference Range Comments SODIUM (test code=NA) 142 mmol/L 136-145 POTASSIUM (test code=K) 4.2 mmol/L 3.5-5.1 CHLORIDE (test code=CL) 115.0 mmol/L 98-107 CARBON DIOXIDE (test code=CO2) mmol/L 21-32 ANION GAP (test code=GAP) 10-20 GLUCOSE (test code=GLU) mg/dL 74-106 BLOOD UREA NITROGEN (test code=BUN) mg/dL 7-18 GLOMERULAR FILTRATION RATE (test code=GFR) mL/min >=60 CREATININE (test code=CREAT) mg/dL 0.7-1.3 BUN/CREATININE RATIO (test code=BUN/CREA) 10-20 CALCIUM (test code=CA) mg/dL 8.5-10.1 [id number] 03:32:00* Test Item Value Reference Range Comments PHOSPHORUS (test code=PHOS) mg/dL 2.5-4.9 [id number] 03:32:00* Test Item Value Reference Range Comments MAGNESIUM (test code=MAG) mg/dL 1.8-2.4 CALCIUM [id number] 03:32:00* Test Item Value Reference Range Comments CALCIUM IONIZED (test code=LYNDSEY) 1.11 mmol/L 1.12-1.32 BASIC METABOLIC [id number] 03:26:00* Test Item Value Reference Range Comments SODIUM (test code=NA) mmol/L 136-145 POTASSIUM (test code=K) mmol/L 3.5-5.1 CHLORIDE (test code=CL) mmol/L 98-107 CARBON DIOXIDE (test code=CO2) mmol/L 21-32 ANION GAP (test code=GAP) 10-20 GLUCOSE (test code=GLU) mg/dL 74-106 BLOOD UREA NITROGEN (test code=BUN) mg/dL 7-18 GLOMERULAR FILTRATION RATE (test code=GFR) mL/min >=60 CREATININE (test code=CREAT) mg/dL 0.7-1.3 BUN/CREATININE RATIO (test code=BUN/CREA) 10-20 CALCIUM (test code=CA) mg/dL 8.5-10.1 [id number] 03:26:00* Test Item Value Reference Range Comments PHOSPHORUS (test code=PHOS) mg/dL 2.5-4.9 [id number] 03:26:00* Test Item Value Reference Range Comments MAGNESIUM (test code=MAG) mg/dL 1.8-2.4 CALCIUM [id number] 03:26:00* Test Item Value Reference Range Comments CALCIUM IONIZED (test code=LYNDSEY) 1.11 mmol/L 1.12-1.32 LACTIC [id number] 00:40:00* Test Item Value Reference Range Comments LACTIC ACID (test code=LACT) 3.7 mmol/L 0.4-1.9 Results called to KENNEDI [id number] by [email or web address] 06/28/19 0039Critical results verified and read back by Nurse? Y LACTIC [id number] 22:02:00* Test Item Value Reference Range Comments LACTIC ACID (test code=LACT) 4.9 mmol/L 0.4-1.9 Results called to [id number] by V.[email or web address] 06/27/19 2201Critical results verified and read back by Nurse? Y [id number] 17:16:00* Test Item Value Reference Range Comments GLUBED (test code=GLUBED) 135 mg/dL 74-106 Performed by certified packer operator automatic at [facility] LACTIC [id number] 16:45:00* Test Item Value Reference Range Comments LACTIC ACID (test code=LACT) 5.9 mmol/L 0.4-1.9 Results called to [id number] by V.[email or web address] 06/27/19 1644Critical results verified and read back by Nurse? Y LACTIC [id number] 13:22:00* Test Item Value Reference Range Comments LACTIC ACID (test code=LACT) 7.5 mmol/L 0.4-1.9 Results called to [id number] by V.[email or web address] 06/27/19 1321Critical results verified and read back by Nurse? Y [id number] 13:01:00* Test Item Value Reference Range Comments GLUBED (test code=GLUBED) 105 mg/dL 74-106 Performed by certified packer operator automatic at [facility] [id number] 10:36:00* Test Item Value Reference Range Comments GLUBED (test code=GLUBED) 147 mg/dL 74-106 Performed by certified packer operator automatic at [facility] LACTIC [id number] 09:37:00* Test Item Value Reference Range Comments LACTIC ACID (test code=LACT) 7.4 mmol/L 0.4-1.9 Results called to [id number] by [email or web address] 06/27/19 0935Critical results verified and read back by Nurse? Y .AS4 06/27/19 0338 BASIC METABOLIC [id number] 08:18:00* Test Item Value Reference Range Comments SODIUM (test code=NA) 144 mmol/L 136-145 RESULT VERIFIED BY REPEAT ANALYSIS POTASSIUM (test code=K) 4.2 mmol/L 3.5-5.1 CHLORIDE (test code=CL) 117.7 mmol/L 98-107 CARBON DIOXIDE (test code=CO2) 11.0 mmol/L 21-32 ANION GAP (test code=GAP) 19.5 10-20 GLUCOSE (test code=GLU) 156 mg/dL 74-106 BLOOD UREA NITROGEN (test code=BUN) 46 mg/dL 7-18 RESULT VERIFIED BY REPEAT ANALYSIS GLOMERULAR FILTRATION RATE (test code=GFR) 26 mL/min >=60 Estimated GFR by using Modified MDRD formula.Chronic kidney disease is defined as either kidney damageor GFR <60 mL/min/1.73 m2 for >3 months. CREATININE (test code=CREAT) 2.51 mg/dL 0.7-1.3 BUN/CREATININE RATIO (test code=BUN/CREA) 18.3 10-20 CALCIUM (test code=CA) 7.4 mg/dL 8.5-10.1 [id number] 08:18:00* Test Item Value Reference Range Comments PHOSPHORUS (test code=PHOS) 5.1 mg/dL 2.5-4.9 [id number] 08:18:00* Test Item Value Reference Range Comments MAGNESIUM (test code=MAG) 1.7 mg/dL 1.8-2.4 B-TYPE NATRIURETIC [id number] 08:13:00* Test Item Value Reference Range Comments B-TYPE NATRIURETIC PEPTIDE (test code=BNP) 1472.66 pgram/mL 0-100 .AS4 06/27/19 0337Has Patient received Natrecor? NOCBC W/MANUAL [id number] 08:00:00* Test Item Value Reference Range Comments WHITE BLOOD CELL (test code=WBC) 38.5 K/mm3 4.5-12.5 RESULT VERIFIED BY REPEAT ANALYSIS RED BLOOD CELL (test code=RBC) 3.37 mill/mm3 4.0-5.8 HEMOGLOBIN (test code=HGB) 10.3 gram/dL 13.0-17.5 RESULT VERIFIED BY REPEAT ANALYSIS HEMATOCRIT (test code=HCT) 33.2 % 42.0-52.0 MEAN CELL VOLUME (test code=MCV) 98.5 fL 80-98 MEAN CELL HGB (test code=MCH) 30.6 picogram 27.0-33.0 MEAN CELL HGB CONCETRATION (test code=MCHC) 31.0 gram/dL 33.0-36.0 RED CELL DISTRIBUTION WIDTH (test code=RDW) 16.1 % 11.6-16.2 RED CELL DISTRIBUTION WIDTH SD (test code=RDW-SD) 57.9 fL 37.0-51.0 PLATELET COUNT (test code=PLT) 111 K/mm3 150-450 MEAN PLATELET VOLUME (test code=MPV) 9.6 fL 6.7-11.0 IMMATURE GRANULOCYTE % (test code=IG%) 1.7 % 0.0-5.0 NUCLEATED RBC % (test code=NRBC%) 0.0 % 0-0 NEUTROPHIL # (test code=NT#) 34.77 K/mm3 1.8-7.7 IMMATURE GRANULOCYTE # (test code=IG#) 0.66 x10 3/uL 0-0.03 LYMPHOCYTE # (test code=LY#) 1.28 K/mm3 1.0-5.0 MONOCYTE # (test code=MO#) 1.69 K/mm3 0-0.8 EOSINOPHIL # (test code=EO#) 0.01 K/mm3 0.0-0.5 BASOPHIL # (test code=BA#) 0.12 K/mm3 0.0-0.2 NUCLEATED RBC # (test code=NRBC#) 0.00 K/mm3 0.0-0.1 MANUAL DIFF REQUIRED (test code=MDIFF) YES STAIN ACCEPTABILITY (test code=STN ACCEPTABLE) STAIN ACCEPTABLE TOTAL CELLS COUNTED (test code=TCC) 115 #CELLS SEGMENTED NEUTROPHILS (test code=SEG) 81.7 % 39-69 BAND NEUTROPHIL (test code=BAND) 8.7 % 0-10 LYMPHOCYTE (test code=LYMPH) 1.7 % 25-55 REACTIVE LYMPH (test code=RELYMPH) 0 % MONOCYTE (test code=MON) 7.0 % 0-10 EOSINOPHIL (test code=EOS) 0 % 0.0-5.0 BASOPHIL (test code=BASO) 0 % 0-1.0 METAMYELOCYTE (test code=META) 0 % 0-0 MYELOCYTE (test code=MYELO) 0.9 % 0.0-0.0 PROMYELOCYTE (test code=PROM) 0 % 0-0 POIKILOCYTOSIS (test code=POIK) 2+ CRENATED CELLS (test code=CREN) 1+ PLATELET ESTIMATE (test code=PLTEST) SLIGHTLY DECREASED PLATELET MORPHOLOGY (test code=PLTMORPH) NORMAL IMMATURE FORMS (test code=IMMAT) 0 % 0-0 CBC W/MANUAL [id number] 07:39:00* Test Item Value Reference Range Comments WHITE BLOOD CELL (test code=WBC) 38.5 K/mm3 4.5-12.5 RESULT VERIFIED BY REPEAT ANALYSIS RED BLOOD CELL (test code=RBC) 3.37 mill/mm3 4.0-5.8 HEMOGLOBIN (test code=HGB) 10.3 gram/dL 13.0-17.5 RESULT VERIFIED BY REPEAT ANALYSIS HEMATOCRIT (test code=HCT) 33.2 % 42.0-52.0 MEAN CELL VOLUME (test code=MCV) 98.5 fL 80-98 MEAN CELL HGB (test code=MCH) 30.6 picogram 27.0-33.0 MEAN CELL HGB CONCETRATION (test code=MCHC) 31.0 gram/dL 33.0-36.0 RED CELL DISTRIBUTION WIDTH (test code=RDW) 16.1 % 11.6-16.2 RED CELL DISTRIBUTION WIDTH SD (test code=RDW-SD) 57.9 fL 37.0-51.0 PLATELET COUNT (test code=PLT) 111 K/mm3 150-450 MEAN PLATELET VOLUME (test code=MPV) 9.6 fL 6.7-11.0 IMMATURE GRANULOCYTE % (test code=IG%) 1.7 % 0.0-5.0 NUCLEATED RBC % (test code=NRBC%) 0.0 % 0-0 NEUTROPHIL # (test code=NT#) 34.77 K/mm3 1.8-7.7 IMMATURE GRANULOCYTE # (test code=IG#) 0.66 x10 3/uL 0-0.03 LYMPHOCYTE # (test code=LY#) 1.28 K/mm3 1.0-5.0 MONOCYTE # (test code=MO#) 1.69 K/mm3 0-0.8 EOSINOPHIL # (test code=EO#) 0.01 K/mm3 0.0-0.5 BASOPHIL # (test code=BA#) 0.12 K/mm3 0.0-0.2 NUCLEATED RBC # (test code=NRBC#) 0.00 K/mm3 0.0-0.1 MANUAL DIFF REQUIRED (test code=MDIFF) YES STAIN ACCEPTABILITY (test code=STN ACCEPTABLE) TOTAL CELLS COUNTED (test code=TCC) #CELLS SEGMENTED NEUTROPHILS (test code=SEG) % 39-69 LYMPHOCYTE (test code=LYMPH) % 25-55 MONOCYTE (test code=MON) % 0-10 EOSINOPHIL (test code=EOS) % 0.0-5.0 CABOT RINGS (test code=CAB) MORPHOLOGY COMMENT (test code=MOC) PLATELET ESTIMATE (test code=PLTEST) PLATELET MORPHOLOGY (test code=PLTMORPH) CBC W/MANUAL [id number] 07:39:00* Test Item Value Reference Range Comments WHITE BLOOD CELL (test code=WBC) 38.5 K/mm3 4.5-12.5 RESULT VERIFIED BY REPEAT ANALYSIS RED BLOOD CELL (test code=RBC) 3.37 mill/mm3 4.0-5.8 HEMOGLOBIN (test code=HGB) 10.3 gram/dL 13.0-17.5 RESULT VERIFIED BY REPEAT ANALYSIS HEMATOCRIT (test code=HCT) 33.2 % 42.0-52.0 MEAN CELL VOLUME (test code=MCV) 98.5 fL 80-98 MEAN CELL HGB (test code=MCH) 30.6 picogram 27.0-33.0 MEAN CELL HGB CONCETRATION (test code=MCHC) 31.0 gram/dL 33.0-36.0 RED CELL DISTRIBUTION WIDTH (test code=RDW) 16.1 % 11.6-16.2 RED CELL DISTRIBUTION WIDTH SD (test code=RDW-SD) 57.9 fL 37.0-51.0 PLATELET COUNT (test code=PLT) 111 K/mm3 150-450 MEAN PLATELET VOLUME (test code=MPV) 9.6 fL 6.7-11.0 IMMATURE GRANULOCYTE % (test code=IG%) 1.7 % 0.0-5.0 NUCLEATED RBC % (test code=NRBC%) 0.0 % 0-0 NEUTROPHIL # (test code=NT#) 34.77 K/mm3 1.8-7.7 IMMATURE GRANULOCYTE # (test code=IG#) 0.66 x10 3/uL 0-0.03 LYMPHOCYTE # (test code=LY#) 1.28 K/mm3 1.0-5.0 MONOCYTE # (test code=MO#) 1.69 K/mm3 0-0.8 EOSINOPHIL # (test code=EO#) 0.01 K/mm3 0.0-0.5 BASOPHIL # (test code=BA#) 0.12 K/mm3 0.0-0.2 NUCLEATED RBC # (test code=NRBC#) 0.00 K/mm3 0.0-0.1 MANUAL DIFF REQUIRED (test code=MDIFF) YES STAIN ACCEPTABILITY (test code=STN ACCEPTABLE) TOTAL CELLS COUNTED (test code=TCC) #CELLS SEGMENTED NEUTROPHILS (test code=SEG) % 39-69 LYMPHOCYTE (test code=LYMPH) % 25-55 MONOCYTE (test code=MON) % 0-10 EOSINOPHIL (test code=EOS) % 0.0-5.0 MORPHOLOGY COMMENT (test code=MOC) PLATELET ESTIMATE (test code=PLTEST) PLATELET MORPHOLOGY (test code=PLTMORPH) CBC W/MANUAL [id number] 07:39:00* Test Item Value Reference Range Comments WHITE BLOOD CELL (test code=WBC) 38.5 K/mm3 4.5-12.5 RESULT VERIFIED BY REPEAT ANALYSIS RED BLOOD CELL (test code=RBC) 3.37 mill/mm3 4.0-5.8 HEMOGLOBIN (test code=HGB) 10.3 gram/dL 13.0-17.5 RESULT VERIFIED BY REPEAT ANALYSIS HEMATOCRIT (test code=HCT) 33.2 % 42.0-52.0 MEAN CELL VOLUME (test code=MCV) 98.5 fL 80-98 MEAN CELL HGB (test code=MCH) 30.6 picogram 27.0-33.0 MEAN CELL HGB CONCETRATION (test code=MCHC) 31.0 gram/dL 33.0-36.0 RED CELL DISTRIBUTION WIDTH (test code=RDW) 16.1 % 11.6-16.2 RED CELL DISTRIBUTION WIDTH SD (test code=RDW-SD) 57.9 fL 37.0-51.0 PLATELET COUNT (test code=PLT) 111 K/mm3 150-450 MEAN PLATELET VOLUME (test code=MPV) 9.6 fL 6.7-11.0 IMMATURE GRANULOCYTE % (test code=IG%) 1.7 % 0.0-5.0 NUCLEATED RBC % (test code=NRBC%) 0.0 % 0-0 NEUTROPHIL # (test code=NT#) 34.77 K/mm3 1.8-7.7 IMMATURE GRANULOCYTE # (test code=IG#) 0.66 x10 3/uL 0-0.03 LYMPHOCYTE # (test code=LY#) 1.28 K/mm3 1.0-5.0 MONOCYTE # (test code=MO#) 1.69 K/mm3 0-0.8 EOSINOPHIL # (test code=EO#) 0.01 K/mm3 0.0-0.5 BASOPHIL # (test code=BA#) 0.12 K/mm3 0.0-0.2 NUCLEATED RBC # (test code=NRBC#) 0.00 K/mm3 0.0-0.1 MANUAL DIFF REQUIRED (test code=MDIFF) YES STAIN ACCEPTABILITY (test code=STN ACCEPTABLE) TOTAL CELLS COUNTED (test code=TCC) #CELLS SEGMENTED NEUTROPHILS (test code=SEG) % 39-69 LYMPHOCYTE (test code=LYMPH) % 25-55 MONOCYTE (test code=MON) % 0-10 MORPHOLOGY COMMENT (test code=MOC) PLATELET ESTIMATE (test code=PLTEST) PLATELET MORPHOLOGY (test code=PLTMORPH) [id number] 07:39:00* Test Item Value Reference Range Comments GLUBED (test code=GLUBED) 143 mg/dL 74-106 Performed by certified packer operator automatic at [facility] [id number] 07:39:00* Test Item Value Reference Range Comments GLUBED (test code=GLUBED) 63 mg/dL 74-106 Performed by certified packer operator automatic at [facility] CBC W/MANUAL [id number] 07:38:00* Test Item Value Reference Range Comments WHITE BLOOD CELL (test code=WBC) 38.5 K/mm3 4.5-12.5 RESULT VERIFIED BY REPEAT ANALYSIS RED BLOOD CELL (test code=RBC) 3.37 mill/mm3 4.0-5.8 HEMOGLOBIN (test code=HGB) 10.3 gram/dL 13.0-17.5 RESULT VERIFIED BY REPEAT ANALYSIS HEMATOCRIT (test code=HCT) 33.2 % 42.0-52.0 MEAN CELL VOLUME (test code=MCV) 98.5 fL 80-98 MEAN CELL HGB (test code=MCH) 30.6 picogram 27.0-33.0 MEAN CELL HGB CONCETRATION (test code=MCHC) 31.0 gram/dL 33.0-36.0 RED CELL DISTRIBUTION WIDTH (test code=RDW) 16.1 % 11.6-16.2 RED CELL DISTRIBUTION WIDTH SD (test code=RDW-SD) 57.9 fL 37.0-51.0 PLATELET COUNT (test code=PLT) 111 K/mm3 150-450 MEAN PLATELET VOLUME (test code=MPV) 9.6 fL 6.7-11.0 IMMATURE GRANULOCYTE % (test code=IG%) 1.7 % 0.0-5.0 NUCLEATED RBC % (test code=NRBC%) 0.0 % 0-0 NEUTROPHIL # (test code=NT#) 34.77 K/mm3 1.8-7.7 IMMATURE GRANULOCYTE # (test code=IG#) 0.66 x10 3/uL 0-0.03 LYMPHOCYTE # (test code=LY#) 1.28 K/mm3 1.0-5.0 MONOCYTE # (test code=MO#) 1.69 K/mm3 0-0.8 EOSINOPHIL # (test code=EO#) 0.01 K/mm3 0.0-0.5 BASOPHIL # (test code=BA#) 0.12 K/mm3 0.0-0.2 NUCLEATED RBC # (test code=NRBC#) 0.00 K/mm3 0.0-0.1 MANUAL DIFF REQUIRED (test code=MDIFF) YES STAIN ACCEPTABILITY (test code=STN ACCEPTABLE) TOTAL CELLS COUNTED (test code=TCC) #CELLS SEGMENTED NEUTROPHILS (test code=SEG) % 39-69 LYMPHOCYTE (test code=LYMPH) % 25-55 MONOCYTE (test code=MON) % 0-10 EOSINOPHIL (test code=EOS) % 0.0-5.0 CABOT RINGS (test code=CAB) MORPHOLOGY COMMENT (test code=MOC) PLATELET ESTIMATE (test code=PLTEST) PLATELET MORPHOLOGY (test code=PLTMORPH) CBC W/MANUAL [id number] 07:38:00* Test Item Value Reference Range Comments WHITE BLOOD CELL (test code=WBC) 38.5 K/mm3 4.5-12.5 RESULT VERIFIED BY REPEAT ANALYSIS RED BLOOD CELL (test code=RBC) 3.37 mill/mm3 4.0-5.8 HEMOGLOBIN (test code=HGB) 10.3 gram/dL 13.0-17.5 RESULT VERIFIED BY REPEAT ANALYSIS HEMATOCRIT (test code=HCT) 33.2 % 42.0-52.0 MEAN CELL VOLUME (test code=MCV) 98.5 fL 80-98 MEAN CELL HGB (test code=MCH) 30.6 picogram 27.0-33.0 MEAN CELL HGB CONCETRATION (test code=MCHC) 31.0 gram/dL 33.0-36.0 RED CELL DISTRIBUTION WIDTH (test code=RDW) 16.1 % 11.6-16.2 RED CELL DISTRIBUTION WIDTH SD (test code=RDW-SD) 57.9 fL 37.0-51.0 PLATELET COUNT (test code=PLT) 111 K/mm3 150-450 MEAN PLATELET VOLUME (test code=MPV) 9.6 fL 6.7-11.0 IMMATURE GRANULOCYTE % (test code=IG%) 1.7 % 0.0-5.0 NUCLEATED RBC % (test code=NRBC%) 0.0 % 0-0 NEUTROPHIL # (test code=NT#) 34.77 K/mm3 1.8-7.7 IMMATURE GRANULOCYTE # (test code=IG#) 0.66 x10 3/uL 0-0.03 LYMPHOCYTE # (test code=LY#) 1.28 K/mm3 1.0-5.0 MONOCYTE # (test code=MO#) 1.69 K/mm3 0-0.8 EOSINOPHIL # (test code=EO#) 0.01 K/mm3 0.0-0.5 BASOPHIL # (test code=BA#) 0.12 K/mm3 0.0-0.2 NUCLEATED RBC # (test code=NRBC#) 0.00 K/mm3 0.0-0.1 MANUAL DIFF REQUIRED (test code=MDIFF) YES STAIN ACCEPTABILITY (test code=STN ACCEPTABLE) TOTAL CELLS COUNTED (test code=TCC) #CELLS SEGMENTED NEUTROPHILS (test code=SEG) % 39-69 LYMPHOCYTE (test code=LYMPH) % 25-55 MONOCYTE (test code=MON) % 0-10 EOSINOPHIL (test code=EOS) % 0.0-5.0 CABOT RINGS (test code=CAB) MORPHOLOGY COMMENT (test code=MOC) PLATELET ESTIMATE (test code=PLTEST) PLATELET MORPHOLOGY (test code=PLTMORPH) - XR CHEST 1 [id number] 07:27:00 FAX: Nate Hollis MD [place]: B St: ADM FAX: Deandre Jesus HAND STITCHER [phone] Name: REBEL ROD [facility] : 1950 Age/S: 68/M [address] [facility] Unit #: [id number] Loc: [place] [address] Phys: Deandre Moreira NP Acct: [id number] Dis Date: Status: ADM IN PHONE #: [phone] Exam Date: 06/27/2019 0651 FAX #: [phone] Reason: Central line EXAMS: CPT CODE: [id number] XR CHEST 1 V 22260 CLINICAL HISTORY: Central line placement, septic shock, altered mental status TECHNIQUE: AP chest x-ray COMPARISON: Previous day. IMPRESSION: Interval placement of right IJ central venous catheter with distal tip at the superior cavoatrial junction. No pneumothorax or other significant change compared to the previous study. at 0724 Reported and signed by: Gabbi Donnelly D.O. CC: Nate Rachel; Deandre Moreira NP Technologist: Theresa Robles) Trnscrd Date/Time/By: 06/27/2019 (75) : By: [email or web address] Orig Print D/T: S: 06/27/2019 (3710) PAGE 1 Signed Report [id number] 04:16:00* Test Item Value Reference Range Comments GLUBED (test code=GLUBED) 80 mg/dL 74-106 Performed by certified packer operator automatic at [facility] LACTIC [id number] 01:00:00* Test Item Value Reference Range Comments LACTIC ACID (test code=LACT) 6.3 mmol/L 0.4-1.9 Results called to [id number] by V.LAB.BRIGETTE 06/27/19 0100Critical results verified and read back by Nurse? Y [id number] 00:58:00* Test Item Value Reference Range Comments TROPONIN-I (test code=TROPI) 0.062 ng/mL 0-0.045 RESULT VERIFIED BY REPEAT ANALYSIS COMMENTS TO ELECTRIC VEHICLE ELECTRICIAN: COLLECT 3 HOURS AFTER PREVIOUS SAMPLELACTIC [id number] 21:25:00* Test Item Value Reference Range Comments LACTIC ACID (test code=LACT) 7.3 mmol/L 0.4-1.9 Results called to [id number] by V.LAB.SPR 06/26/19 2125Critical results verified and read back by Nurse? Y [id number] 21:20:00* Test Item Value Reference Range Comments TROPONIN-I (test code=TROPI) 0.057 ng/mL 0-0.045 Results called to [id number] by V.LAB.SPR 06/26/19 2120Critical results verified and read back by Nurse? Y COMMENTS TO ELECTRIC VEHICLE ELECTRICIAN: COLLECT 3 HOURS AFTER PREVIOUS SAMPLELACTIC [id number] 16:56:00* Test Item Value Reference Range Comments LACTIC ACID (test code=LACT) 5.0 mmol/L 0.4-1.9 Results called to [id number] by V.LAB.SPR 06/26/19 1656Critical results verified and read back by Nurse? Y URINALYSIS [id number] 14:06:00* Test Item Value Reference Range Comments UA COLOR (test code=COLU) YELLOW YELLOW UA APPEARANCE (test code=APPU) TURBID CLEAR UA GLUCOSE DIPSTICK (test code=DGLUU) NEGATIVE mg/dL NEGATIVE UA BILIRUBIN DIPSTICK (test code=BILU) NEGATIVE mg/dL NEGATIVE UA KETONE DIPSTICK (test code=KETU) NEGATIVE mg/dL NEGATIVE UA SPECIFIC GRAVITY (test code=SGU) 1.016 1.001-1.035 UA BLOOD DIPSTICK (test code=KIMBERLEE) Negative mg/dL NEGATIVE UA PH DIPSTICK (test code=RENEE) 8.5 5.0-8.0 UA PROTEIN DIPSTICK (test code=PROU) 300 (3+) mg/dL NEGATIVE UA UROBILINIOGEN DIPSTICK (test code=URO) Normal mg/dL NEGATIVE UA NITRITE DIPSTICK (test code=PAN) NEGATIVE NEGATIVE UA LEUKOCYTE ESTERASE W REFLEX (test code=LEUUR) 500 Maury/uL (3+) Maury/uL NEGATIVE UA WBC (test code=WBCU) 21-50 per HPF 0-5 UA RBC (test code=RBCU) 21-50 #/HPF 0-5 UA EPITHELIAL CELLS (test code=EPIU) FEW per HPF FEW UA BACTERIA (test code=BACU) MODERATE #/HPF NONE UA TRIPLE PHOSPHATE CRYSTALS (test code=TRPHOSU) MANY #/HPF NONE UA MUCUS (test code=MUCU) FEW #/LPF FEW Urine Source? Clean CatchURINALYSIS [id number] 13:37:00* Test Item Value Reference Range Comments UA COLOR (test code=COLU) YELLOW YELLOW UA APPEARANCE (test code=APPU) TURBID CLEAR UA GLUCOSE DIPSTICK (test code=DGLUU) NEGATIVE mg/dL NEGATIVE UA BILIRUBIN DIPSTICK (test code=BILU) NEGATIVE mg/dL NEGATIVE UA KETONE DIPSTICK (test code=KETU) NEGATIVE mg/dL NEGATIVE UA SPECIFIC GRAVITY (test code=SGU) 1.016 1.001-1.035 UA BLOOD DIPSTICK (test code=KIMBERLEE) Negative mg/dL NEGATIVE UA PH DIPSTICK (test code=RENEE) 8.5 5.0-8.0 UA PROTEIN DIPSTICK (test code=PROU) 300 (3+) mg/dL NEGATIVE UA UROBILINIOGEN DIPSTICK (test code=URO) Normal mg/dL NEGATIVE UA NITRITE DIPSTICK (test code=PAN) NEGATIVE NEGATIVE UA LEUKOCYTE ESTERASE W REFLEX (test code=LEUUR) 500 Maury/uL (3+) Maury/uL NEGATIVE UA WBC (test code=WBCU) per HPF 0-5 UA RBC (test code=RBCU) per HPF 0-5 UA EPITHELIAL CELLS (test code=EPIU) per HPF Few UA BACTERIA (test code=BACU) per HPF NONE Urine Source? Clean Catch- XR CHEST 1 [id number] 13:28:00 FAX: Sahra Toscano [phone] [place]: St: REG Name: REBEL TRONCOSO [facility] : [birth year] Age/S: 68/M [address] [facility] Unit #: [id number] Loc: [place] [address] Phys: Sahra Swan MD Acct: [id number] Dis Date: Status: REG ER PHONE #: [phone] Exam Date: 06/26/2019 1310 FAX #: [phone] Reason: CODE SEPSIS EXAMS: CPT CODE: [id number] XR CHEST 1 V 10781 HISTORY: Sepsis. COM PARISON: April 25, 2019. Note: Underpenetrated exam is limited in ev aluation. Patchy left basal infiltrate suspected within the limits of this exam. No effusion or congestion. Moderate cardiomegaly. IMPRESSION: Limited study due to underpenetrated tech nique. Repeat examination would be of value. Suspected patchy left basal infiltrate. at 7275 Reported and signed by: Pierre Lobato M.D. CC: Sahra Swan MD Technologist: LENIN MARTINEZ RT(R); Lynnette Sanchez RT(R) Trnderd Date/Time/By: 06/26/2019 (2982) : By: [email or web address] Orig Print D/T: S: 11/2018 (9525) PAGE 1 Signed Repo rt - XR FOOT 3 + V [id number] 13:25:00 FAX: Sahra Toscano [phone] [place]: St: REG Name: REBEL TRONCOSO [facility] : [birth year] Age/S: 68/M [address] [facility] Unit #: [id number] Loc: [place] [address] Phys: Sahra Swan MD Acct: [id number] Dis Date: Status: REG ER PHONE #: [phone] Exam Date: 06/26/2019 1315 FAX #: [phone] Reason: fall, abraions to great toe EXAMS: CPT CODE: [id number] XR FOOT 3 + [place] [address] HISTORY: Fall and pain. COMPARISON: None available. AP and lateral view of either foot: No acute fracture or dislocation of either foot. 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 Polyar ticular joint space narrowing especially at the level of the tarsometatars al and intertarsal joints with osteoporosis. Markedly narrowed talonavicul ar joint on the right side as well. Plantar calcaneal enthesophytes bilate rally. Os navicularis on the left side. Soft tissues are within no rmal limits. IMPRESSION: No acute fractu re or dislocation. Severe polyarticular joint space narrowing especially at the intertarsal and the tarsal metatarsal joint level. Osteoporosis. Gracile appearance of the bony skeleton. Large plantar calcaneal enthes ophyte. No erosive or destructive changes. Electronically Si gned by Ivan Lobato on 06/26/2019 at 1325 Reported and signed by: Pierre Lobato M.D. CC: Sahra Swan MD Technologist: LENIN MARTINEZ RT(R); Lynnette Sanchez RT(R) Trnderd Date/Time/By: 06/26/2019 (8561) : By: [email or web address] Orig Print D/T: S: 06/26/2019 (0765) PAGE 1 Signed Report - CT C-SPINE W/O [id number] 13:15:00 [facility] [place] [facility] 1950 Age/S: 68 / M [address] Unit #: [id number] Loc: [place] [address] Phys: Sahra Swan MD Acct: [id number] Dis Date: Status: REG ER PHONE #: [phone] Exam Date: 06/26/2019 1253 FAX #: [phone] Reason: fall EXAMS: CPT CODE: [id number] CT C-SPINE W/O CONTRAST 03362 HISTORY: Fever and pain. COMPARISON: MRI and CT scan from March 20172010. CT cervical spine without contrast: Automated exposure control. No acute fracture of the cervical spine. Multiple large posterior marginal osteophyte resulting in severe canal and foraminal stenosis throughout the cervical spine. Correlate for radicular symptoms and correlate with repeat MRI scan for further evaluation for radicular symptoms. Cord is displaced posteriorly at multiple levels without overt compression. Correlate clinically however. No prevertebral soft tissue swelling. Thyroid glands are poorly visible. Superior mediastinum is unremarkable lung apices are clear. Anatomic alignment. Vertebral body heights are maintained. Complete fusion of the vertebral bodies with complete loss of disc space from C5 through T1 level. Narrowed disc space at C3-C4 and C4-C5 levels as well. Calcification of the anterior posterior longitudinal ligaments. Soft tissue calcification as well posterior to the C5-C6 level. Narrowed uncovertebral joints. IMPRESSION: No acute fracture. Anatomic alignment. Advanced degenerative changes. Severe ca nal and severe foraminal stenosis with large posterior marginal disc ost eophyte with posterior displacement of the cord. This patient would bene fit from MRI of cervical spine. This pattern however is stable from prev ious CT scan of April 21, 2011. at 1315 Reported and signed by: Pierre Lobato M.D. CC: Sahra Swan MD Technologist:Norberto Goncalves RT(R),(MR),(CT); CTDI: DLP: Trnscb Da te/Time: 06/26/2019 (1315) t.SDR.TH4 Orig Print D/T: S: 0 06/26/2019 (1318) PAGE 1 Signed Report - CT HEAD/BRAIN W/O [id number] 13:04:00 Name: REBEL RDO [facility] [place] : 1950 Age/S: 68 / M [address] Unit #: [id number] Loc: [place] [address] Phys: Howie Swan MD Acct: [id number] Di s Date: Status: REG ER PHONE #: Exam Date: 06/26/2019 1259 FAX #: Reason: CODE SEPSIS EXAMS: CPT CODE: [id number] CT HEAD/BRAIN W/O CONT 30573 HISTORY: Sepsis. COMPARISON: April 25, 2019. CT brain without contrast: Automated exposure control. Note: Limited study due to extensive beam amirah dening artifact from patient's kyphotic positioning and portion of the fro ntal lobe is not included as a result. No acute intracranial bleeds or extra-axial collections are noted. No acute territorial vascular infarction is noted. The sulci, gyri, ventricles and subarachnoid spaces and the basilar cisterns are normal for patient's age. No herniat ion or hydrocephalus or midline shift is noted. Mild periven tricular ischemic gliosis is noted. Age-appropriate atrophy is noted as we ll. Portions of the visualized paranasal sinuses demonstrated opacification partially of both maxillary sinuses. Polyp within the floor of the right maxillary sinus. [place] holes noted within the left f rontal bone. IMPRESSION: No acute intracranial bleeds or extra-axial collections. No acute territorial vascu lar infarction. No herniation or hydrocephalus or midline shif t. Chronic white matter ischemic disease and atrophy . 19 at 1304 Reported and signed by: Pierre Lobato M.D. PAGE 1 Signed Report (CONTINUED) Name: REBEL ROD [facility] [place] [place] : 1950 Age/S: 68 / M [address] Unit #: [id number] Loc: [place] [address] Phys: Cameron Swan MD Acct: [id number] D is Date: Status: REG ER PHONE #: [phone] Exam Date: 06/26/2019 1253 FAX #: Reason: CODE SEPSIS EXAMS: CPT CODE: [id number] CT HEAD/BRAIN W/O CONT 28621 <Continued> CC: Sahra Swan MD Technologist:Norberto Goncalves RT(R),(MR),(CT); CTDI: DLP: Trnscb Date/Time: 06/26/2019 (5069) t.[email or web address].TH4 Orig Print D/T: S: 06/26/2019 (2127) PAGE 2 Signed Report B-TYPE NATRIURETIC [id number] 12:56:00* Test Item Value Reference Range Comments B-TYPE NATRIURETIC PEPTIDE (test code=BNP) 71.84 pgram/mL 0-100 CBC W/MANUAL [id number] 12:53:00* Test Item Value Reference Range Comments WHITE BLOOD CELL (test code=WBC) 15.4 K/mm3 4.5-12.5 RED BLOOD CELL (test code=RBC) 4.05 mill/mm3 4.0-5.8 HEMOGLOBIN (test code=HGB) 12.4 gram/dL 13.0-17.5 HEMATOCRIT (test code=HCT) 38.4 % 42.0-52.0 MEAN CELL VOLUME (test code=MCV) 94.8 fL 80-98 MEAN CELL HGB (test code=MCH) 30.6 picogram 27.0-33.0 MEAN CELL HGB CONCETRATION (test code=MCHC) 32.3 gram/dL 33.0-36.0 RED CELL DISTRIBUTION WIDTH (test code=RDW) 15.2 % 11.6-16.2 RED CELL DISTRIBUTION WIDTH SD (test code=RDW-SD) 52.8 fL 37.0-51.0 PLATELET COUNT (test code=PLT) 143 K/mm3 150-450 MEAN PLATELET VOLUME (test code=MPV) 8.6 fL 6.7-11.0 IMMATURE GRANULOCYTE % (test code=IG%) 0.8 % 0.0-5.0 NUCLEATED RBC % (test code=NRBC%) 0.0 % 0-0 NEUTROPHIL # (test code=NT#) 14.75 K/mm3 1.8-7.7 IMMATURE GRANULOCYTE # (test code=IG#) 0.12 x10 3/uL 0-0.03 LYMPHOCYTE # (test code=LY#) 0.29 K/mm3 1.0-5.0 MONOCYTE # (test code=MO#) 0.19 K/mm3 0-0.8 EOSINOPHIL # (test code=EO#) 0.01 K/mm3 0.0-0.5 BASOPHIL # (test code=BA#) 0.06 K/mm3 0.0-0.2 NUCLEATED RBC # (test code=NRBC#) 0.00 K/mm3 0.0-0.1 MANUAL DIFF REQUIRED (test code=MDIFF) YES STAIN ACCEPTABILITY (test code=STN ACCEPTABLE) STAIN ACCEPTABLE TOTAL CELLS COUNTED (test code=TCC) 115 #CELLS SEGMENTED NEUTROPHILS (test code=SEG) 87.8 % 39-69 BAND NEUTROPHIL (test code=BAND) 9.6 % 0-10 LYMPHOCYTE (test code=LYMPH) 1.7 % 25-55 REACTIVE LYMPH (test code=RELYMPH) 0 % MONOCYTE (test code=MON) 0.9 % 0-10 EOSINOPHIL (test code=EOS) 0 % 0.0-5.0 BASOPHIL (test code=BASO) 0 % 0-1.0 METAMYELOCYTE (test code=META) 0 % 0-0 MYELOCYTE (test code=MYELO) 0 % 0.0-0.0 PROMYELOCYTE (test code=PROM) 0 % 0-0 PLATELET ESTIMATE (test code=PLTEST) ADEQUATE PLATELET MORPHOLOGY (test code=PLTMORPH) NORMAL IMMATURE FORMS (test code=IMMAT) 0 % 0-0 PROCALCITONIN (PCT)[id number] 12:27:00* Test Item Value Reference Range Comments PROCALCITONIN (PCT) (test code=PROCAL) 2.17 ng/ml Concentration Interpretation (ng/mL) <0.51 Sepsis is not likely. Local bacterial infection is possible. (LOW RISK for progression to Sepsis) 0.51 - 2.00 Sepsis is possible, but other conditions are known to elevate PCT as well. (MODERATE RISK for progression to Sepsis) > 2.00 Sepsis is likely, unless other causes are known. (HIGH RISK for progression to Severe Sepsis or Septic Shock) 10.00 High likelihood of Severe Sepsis or Septic or higher Shock. *Increased PCT levels may not always be related to systemic bacterial infection.*Low PCT levels do not automatically exclude the presence of bacterial infection.*All results should be interpreted taking into account the patients history. LACTIC [id number] 12:24:00* Test Item Value Reference Range Comments LACTIC ACID (test code=LACT) 4.8 mmol/L 0.4-1.9 Results called to [id number] by JARED 06/26/19 1223Critical results verified and read back by Nurse? Y BASIC METABOLIC [id number] 12:16:00* Test Item Value Reference Range Comments SODIUM (test code=NA) 139 mmol/L 136-145 POTASSIUM (test code=K) 5.0 mmol/L 3.5-5.1 CHLORIDE (test code=CL) 112.0 mmol/L 98-107 CARBON DIOXIDE (test code=CO2) 19.0 mmol/L 21-32 ANION GAP (test code=GAP) 13.0 10-20 GLUCOSE (test code=GLU) 169 mg/dL 74-106 BLOOD UREA NITROGEN (test code=BUN) 33 mg/dL 7-18 GLOMERULAR FILTRATION RATE (test code=GFR) 41 mL/min >=60 Estimated GFR by using Modified MDRD formula.Chronic kidney disease is defined as either kidney damageor GFR <60 mL/min/1.73 m2 for >3 months. CREATININE (test code=CREAT) 1.70 mg/dL 0.7-1.3 BUN/CREATININE RATIO (test code=BUN/CREA) 19.8 10-20 CALCIUM (test code=CA) 8.6 mg/dL 8.5-10.1 HEPATIC FUNCTION [id number] 12:16:00* Test Item Value Reference Range Comments TOTAL PROTEIN (test code=PROT) 8.1 gram/dL 6.4-8.2 ALBUMIN (test code=ALB) 2.4 g/dL 3.4-5.0 GLOBULIN (test code=GLOB) 5.7 gram/dL 2.7-4.2 ALBUMIN/GLOBULIN RATIO (test code=A/G) 0.4 0.75-1.50 BILIRUBIN TOTAL (test code=BILT) 1.20 mg/dL 0.0-1.0 BILIRUBIN DIRECT (test code=BILD) 0.79 mg/dL 0.0-0.20 SGOT/AST (test code=AST) 84 IUnit/L 15-37 SGPT/ALT (test code=ALT) 33 IUnit/L 12-78 ALKALINE PHOSPHATASE TOTAL (test code=ALKP) 223 IUnit/L 45-117 Note change in reference range due to change in reagent. [id number] 12:16:00* Test Item Value Reference Range Comments LIPASE (test code=LIP) 66 U/L 73.0-393.0 [id number] 12:16:00* Test Item Value Reference Range Comments TROPONIN-I (test code=TROPI) <0.015 ng/mL 0-0.045 PROTHROMBIN [id number] 12:15:00* Test Item Value Reference Range Comments PROTHROMBIN TIME PATIENT (test code=PTP) 14.1 seconds 9.0-14.0 INTERNATIONAL NORMAL RATIO (test code=INR) 1.2 0.8-1.2 The therapeutic range for oral anticoagulant therapy formost indications is an international normalized ratio (INR)of between 2.0 and 3.0. The recommended therapeutic INRrange for various clinical situations is listed below: Clinical Situation INR range Pulmonary e mbolism treatment (2.0-3.0)Venous thrombosis treatmentVenous thrombosis prophylaxis (high risk surgery)Prevention of systemic embolism from: Acute myocardial infarction Valvular heart disease Atrial fibrillation Mechanical prosthetic heart valves (2.5-3.5) IS PATIENT ON ANTICOAGULANTS? NTHROMBOPLASTIN TIME [id number] 12:15:00* Test Item Value Reference Range Comments THROMBOPLASTIN TIME PARTIAL (test code=PTT) 28.0 seconds 25.0-36.5 IS PATIENT ON ANTICOAGULANTS? NCBC W/MANUAL [id number] 12:14:00* Test Item Value Reference Range Comments WHITE BLOOD CELL (test code=WBC) 15.4 K/mm3 4.5-12.5 RED BLOOD CELL (test code=RBC) 4.05 mill/mm3 4.0-5.8 HEMOGLOBIN (test code=HGB) 12.4 gram/dL 13.0-17.5 HEMATOCRIT (test code=HCT) 38.4 % 42.0-52.0 MEAN CELL VOLUME (test code=MCV) 94.8 fL 80-98 MEAN CELL HGB (test code=MCH) 30.6 picogram 27.0-33.0 MEAN CELL HGB CONCETRATION (test code=MCHC) 32.3 gram/dL 33.0-36.0 RED CELL DISTRIBUTION WIDTH (test code=RDW) 15.2 % 11.6-16.2 RED CELL DISTRIBUTION WIDTH SD (test code=RDW-SD) 52.8 fL 37.0-51.0 PLATELET COUNT (test code=PLT) 143 K/mm3 150-450 MEAN PLATELET VOLUME (test code=MPV) 8.6 fL 6.7-11.0 IMMATURE GRANULOCYTE % (test code=IG%) 0.8 % 0.0-5.0 NUCLEATED RBC % (test code=NRBC%) 0.0 % 0-0 NEUTROPHIL # (test code=NT#) 14.75 K/mm3 1.8-7.7 IMMATURE GRANULOCYTE # (test code=IG#) 0.12 x10 3/uL 0-0.03 LYMPHOCYTE # (test code=LY#) 0.29 K/mm3 1.0-5.0 MONOCYTE # (test code=MO#) 0.19 K/mm3 0-0.8 EOSINOPHIL # (test code=EO#) 0.01 K/mm3 0.0-0.5 BASOPHIL # (test code=BA#) 0.06 K/mm3 0.0-0.2 NUCLEATED RBC # (test code=NRBC#) 0.00 K/mm3 0.0-0.1 MANUAL DIFF REQUIRED (test code=MDIFF) YES STAIN ACCEPTABILITY (test code=STN ACCEPTABLE) TOTAL CELLS COUNTED (test code=TCC) #CELLS SEGMENTED NEUTROPHILS (test code=SEG) % 39-69 LYMPHOCYTE (test code=LYMPH) % 25-55 MONOCYTE (test code=MON) % 0-10 EOSINOPHIL (test code=EOS) % 0.0-5.0 CABOT RINGS (test code=CAB) MORPHOLOGY COMMENT (test code=MOC) PLATELET ESTIMATE (test code=PLTEST) PLATELET MORPHOLOGY (test code=PLTMORPH) CBC W/MANUAL [id number] 12:14:00* Test Item Value Reference Range Comments WHITE BLOOD CELL (test code=WBC) 15.4 K/mm3 4.5-12.5 RED BLOOD CELL (test code=RBC) 4.05 mill/mm3 4.0-5.8 HEMOGLOBIN (test code=HGB) 12.4 gram/dL 13.0-17.5 HEMATOCRIT (test code=HCT) 38.4 % 42.0-52.0 MEAN CELL VOLUME (test code=MCV) 94.8 fL 80-98 MEAN CELL HGB (test code=MCH) 30.6 picogram 27.0-33.0 MEAN CELL HGB CONCETRATION (test code=MCHC) 32.3 gram/dL 33.0-36.0 RED CELL DISTRIBUTION WIDTH (test code=RDW) 15.2 % 11.6-16.2 RED CELL DISTRIBUTION WIDTH SD (test code=RDW-SD) 52.8 fL 37.0-51.0 PLATELET COUNT (test code=PLT) 143 K/mm3 150-450 MEAN PLATELET VOLUME (test code=MPV) 8.6 fL 6.7-11.0 IMMATURE GRANULOCYTE % (test code=IG%) 0.8 % 0.0-5.0 NUCLEATED RBC % (test code=NRBC%) 0.0 % 0-0 NEUTROPHIL # (test code=NT#) 14.75 K/mm3 1.8-7.7 IMMATURE GRANULOCYTE # (test code=IG#) 0.12 x10 3/uL 0-0.03 LYMPHOCYTE # (test code=LY#) 0.29 K/mm3 1.0-5.0 MONOCYTE # (test code=MO#) 0.19 K/mm3 0-0.8 EOSINOPHIL # (test code=EO#) 0.01 K/mm3 0.0-0.5 BASOPHIL # (test code=BA#) 0.06 K/mm3 0.0-0.2 NUCLEATED RBC # (test code=NRBC#) 0.00 K/mm3 0.0-0.1 MANUAL DIFF REQUIRED (test code=MDIFF) YES STAIN ACCEPTABILITY (test code=STN ACCEPTABLE) TOTAL CELLS COUNTED (test code=TCC) #CELLS SEGMENTED NEUTROPHILS (test code=SEG) % 39-69 LYMPHOCYTE (test code=LYMPH) % 25-55 MONOCYTE (test code=MON) % 0-10 EOSINOPHIL (test code=EOS) % 0.0-5.0 CABOT RINGS (test code=CAB) MORPHOLOGY COMMENT (test code=MOC) PLATELET ESTIMATE (test code=PLTEST) PLATELET MORPHOLOGY (test code=PLTMORPH) CBC W/MANUAL [id number] 12:14:00* Test Item Value Reference Range Comments WHITE BLOOD CELL (test code=WBC) 15.4 K/mm3 4.5-12.5 RED BLOOD CELL (test code=RBC) 4.05 mill/mm3 4.0-5.8 HEMOGLOBIN (test code=HGB) 12.4 gram/dL 13.0-17.5 HEMATOCRIT (test code=HCT) 38.4 % 42.0-52.0 MEAN CELL VOLUME (test code=MCV) 94.8 fL 80-98 MEAN CELL HGB (test code=MCH) 30.6 picogram 27.0-33.0 MEAN CELL HGB CONCETRATION (test code=MCHC) 32.3 gram/dL 33.0-36.0 RED CELL DISTRIBUTION WIDTH (test code=RDW) 15.2 % 11.6-16.2 RED CELL DISTRIBUTION WIDTH SD (test code=RDW-SD) 52.8 fL 37.0-51.0 PLATELET COUNT (test code=PLT) 143 K/mm3 150-450 MEAN PLATELET VOLUME (test code=MPV) 8.6 fL 6.7-11.0 IMMATURE GRANULOCYTE % (test code=IG%) 0.8 % 0.0-5.0 NUCLEATED RBC % (test code=NRBC%) 0.0 % 0-0 NEUTROPHIL # (test code=NT#) 14.75 K/mm3 1.8-7.7 IMMATURE GRANULOCYTE # (test code=IG#) 0.12 x10 3/uL 0-0.03 LYMPHOCYTE # (test code=LY#) 0.29 K/mm3 1.0-5.0 MONOCYTE # (test code=MO#) 0.19 K/mm3 0-0.8 EOSINOPHIL # (test code=EO#) 0.01 K/mm3 0.0-0.5 BASOPHIL # (test code=BA#) 0.06 K/mm3 0.0-0.2 NUCLEATED RBC # (test code=NRBC#) 0.00 K/mm3 0.0-0.1 MANUAL DIFF REQUIRED (test code=MDIFF) YES STAIN ACCEPTABILITY (test code=STN ACCEPTABLE) TOTAL CELLS COUNTED (test code=TCC) #CELLS SEGMENTED NEUTROPHILS (test code=SEG) % 39-69 LYMPHOCYTE (test code=LYMPH) % 25-55 MONOCYTE (test code=MON) % 0-10 EOSINOPHIL (test code=EOS) % 0.0-5.0 MORPHOLOGY COMMENT (test code=MOC) PLATELET ESTIMATE (test code=PLTEST) PLATELET MORPHOLOGY (test code=PLTMORPH) CBC W/MANUAL [id number] 12:14:00* Test Item Value Reference Range Comments WHITE BLOOD CELL (test code=WBC) 15.4 K/mm3 4.5-12.5 RED BLOOD CELL (test code=RBC) 4.05 mill/mm3 4.0-5.8 HEMOGLOBIN (test code=HGB) 12.4 gram/dL 13.0-17.5 HEMATOCRIT (test code=HCT) 38.4 % 42.0-52.0 MEAN CELL VOLUME (test code=MCV) 94.8 fL 80-98 MEAN CELL HGB (test code=MCH) 30.6 picogram 27.0-33.0 MEAN CELL HGB CONCETRATION (test code=MCHC) 32.3 gram/dL 33.0-36.0 RED CELL DISTRIBUTION WIDTH (test code=RDW) 15.2 % 11.6-16.2 RED CELL DISTRIBUTION WIDTH SD (test code=RDW-SD) 52.8 fL 37.0-51.0 PLATELET COUNT (test code=PLT) 143 K/mm3 150-450 MEAN PLATELET VOLUME (test code=MPV) 8.6 fL 6.7-11.0 IMMATURE GRANULOCYTE % (test code=IG%) 0.8 % 0.0-5.0 NUCLEATED RBC % (test code=NRBC%) 0.0 % 0-0 NEUTROPHIL # (test code=NT#) 14.75 K/mm3 1.8-7.7 IMMATURE GRANULOCYTE # (test code=IG#) 0.12 x10 3/uL 0-0.03 LYMPHOCYTE # (test code=LY#) 0.29 K/mm3 1.0-5.0 MONOCYTE # (test code=MO#) 0.19 K/mm3 0-0.8 EOSINOPHIL # (test code=EO#) 0.01 K/mm3 0.0-0.5 BASOPHIL # (test code=BA#) 0.06 K/mm3 0.0-0.2 NUCLEATED RBC # (test code=NRBC#) 0.00 K/mm3 0.0-0.1 MANUAL DIFF REQUIRED (test code=MDIFF) YES STAIN ACCEPTABILITY (test code=STN ACCEPTABLE) TOTAL CELLS COUNTED (test code=TCC) #CELLS SEGMENTED NEUTROPHILS (test code=SEG) % 39-69 LYMPHOCYTE (test code=LYMPH) % 25-55 MONOCYTE (test code=MON) % 0-10 MORPHOLOGY COMMENT (test code=MOC) PLATELET ESTIMATE (test code=PLTEST) PLATELET MORPHOLOGY (test code=PLTMORPH) CBC W/MANUAL [id number] 12:14:00* Test Item Value Reference Range Comments WHITE BLOOD CELL (test code=WBC) 15.4 K/mm3 4.5-12.5 RED BLOOD CELL (test code=RBC) 4.05 mill/mm3 4.0-5.8 HEMOGLOBIN (test code=HGB) 12.4 gram/dL 13.0-17.5 HEMATOCRIT (test code=HCT) 38.4 % 42.0-52.0 MEAN CELL VOLUME (test code=MCV) 94.8 fL 80-98 MEAN CELL HGB (test code=MCH) 30.6 picogram 27.0-33.0 MEAN CELL HGB CONCETRATION (test code=MCHC) 32.3 gram/dL 33.0-36.0 RED CELL DISTRIBUTION WIDTH (test code=RDW) 15.2 % 11.6-16.2 RED CELL DISTRIBUTION WIDTH SD (test code=RDW-SD) 52.8 fL 37.0-51.0 PLATELET COUNT (test code=PLT) 143 K/mm3 150-450 MEAN PLATELET VOLUME (test code=MPV) 8.6 fL 6.7-11.0 IMMATURE GRANULOCYTE % (test code=IG%) 0.8 % 0.0-5.0 NUCLEATED RBC % (test code=NRBC%) 0.0 % 0-0 NEUTROPHIL # (test code=NT#) 14.75 K/mm3 1.8-7.7 IMMATURE GRANULOCYTE # (test code=IG#) 0.12 x10 3/uL 0-0.03 LYMPHOCYTE # (test code=LY#) 0.29 K/mm3 1.0-5.0 MONOCYTE # (test code=MO#) 0.19 K/mm3 0-0.8 EOSINOPHIL # (test code=EO#) 0.01 K/mm3 0.0-0.5 BASOPHIL # (test code=BA#) 0.06 K/mm3 0.0-0.2 NUCLEATED RBC # (test code=NRBC#) 0.00 K/mm3 0.0-0.1 MANUAL DIFF REQUIRED (test code=MDIFF) YES STAIN ACCEPTABILITY (test code=STN ACCEPTABLE) TOTAL CELLS COUNTED (test code=TCC) #CELLS SEGMENTED NEUTROPHILS (test code=SEG) % 39-69 LYMPHOCYTE (test code=LYMPH) % 25-55 MONOCYTE (test code=MON) % 0-10 EOSINOPHIL (test code=EOS) % 0.0-5.0 CABOT RINGS (test code=CAB) MORPHOLOGY COMMENT (test code=MOC) PLATELET ESTIMATE (test code=PLTEST) PLATELET MORPHOLOGY (test code=PLTMORPH) BASIC METABOLIC [id number] 12:04:00* Test Item Value Reference Range Comments SODIUM (test code=NA) 139 mmol/L 136-145 POTASSIUM (test code=K) 5.0 mmol/L 3.5-5.1 CHLORIDE (test code=CL) 112.0 mmol/L 98-107 CARBON DIOXIDE (test code=CO2) mmol/L 21-32 ANION GAP (test code=GAP) 10-20 GLUCOSE (test code=GLU) mg/dL 74-106 BLOOD UREA NITROGEN (test code=BUN) mg/dL 7-18 GLOMERULAR FILTRATION RATE (test code=GFR) mL/min >=60 CREATININE (test code=CREAT) mg/dL 0.7-1.3 BUN/CREATININE RATIO (test code=BUN/CREA) 10-20 CALCIUM (test code=CA) mg/dL 8.5-10.1 HEPATIC FUNCTION [id number] 12:04:00* Test Item Value Reference Range Comments TOTAL PROTEIN (test code=PROT) gram/dL 6.4-8.2 ALBUMIN (test code=ALB) g/dL 3.4-5.0 GLOBULIN (test code=GLOB) gram/dL 2.7-4.2 ALBUMIN/GLOBULIN RATIO (test code=A/G) 0.75-1.50 BILIRUBIN TOTAL (test code=BILT) mg/dL 0.0-1.0 BILIRUBIN DIRECT (test code=BILD) mg/dL 0.0-0.20 SGOT/AST (test code=AST) IUnit/L 15-37 SGPT/ALT (test code=ALT) IUnit/L 12-78 ALKALINE PHOSPHATASE TOTAL (test code=ALKP) IUnit/L 45-117 [id number] 12:04:00* Test Item Value Reference Range Comments LIPASE (test code=LIP) U/L 73.0-393.0 [id number] 12:04:00* Test Item Value Reference Range Comments TROPONIN-I (test code=TROPI) ng/mL 0-0.045 [id number] 16:00:00* Test Item Value Reference Range Comments GLUBED (test code=GLUBED) 99 mg/dL 74-106 Performed by certified packer operator automatic at [facility] [id number] 12:37:00* Test Item Value Reference Range Comments GLUBED (test code=GLUBED) 101 mg/dL 74-106 Performed by certified packer operator automatic at [facility] [id number] 08:16:00* Test Item Value Reference Range Comments GLUBED (test code=GLUBED) 69 mg/dL 74-106 Performed by certified packer operator automatic at [facility]Notified Nurse~ [id number] 06:04:00* Test Item Value Reference Range Comments GLUBED (test code=GLUBED) 138 mg/dL 74-106 Performed by certified packer operator automatic at [facility] [id number] 20:40:00* Test Item Value Reference Range Comments GLUBED (test code=GLUBED) 86 mg/dL 74-106 Performed by certified packer operator automatic at [facility]Notified Nurse~ [id number] 12:36:00* Test Item Value Reference Range Comments GLUBED (test code=GLUBED) 105 mg/dL 74-106 Performed by certified packer operator automatic at [facility] [id number] 08:27:00* Test Item Value Reference Range Comments GLUBED (test code=GLUBED) 55 mg/dL 74-106 Performed by certified packer operator automatic at [facility]Notified Nurse~ [id number] 08:13:00* Test Item Value Reference Range Comments ALBUMIN (test code=ALB) 2.1 g/dL 3.4-5.0 DILANTIN (PHENYTOIN)2019-05-04 08:13:00* Test Item Value Reference Range Comments DILANTIN (PHENYTOIN) (test code=DIL) 10.9 ug/mL 10.0-20.0 [id number] 20:49:00* Test Item Value Reference Range Comments GLUBED (test code=GLUBED) 102 mg/dL 74-106 Performed by certified packer operator automatic at [facility]Notified Nurse~ [id number] 16:27:00* Test Item Value Reference Range Comments GLUBED (test code=GLUBED) 142 mg/dL 74-106 Performed by certified packer operator automatic at [facility] [id number] 16:27:00* Test Item Value Reference Range Comments GLUBED (test code=GLUBED) 69 mg/dL 74-106 Performed by certified packer operator automatic at [facility] [id number] 15:54:00* Test Item Value Reference Range Comments GLUBED (test code=GLUBED) 89 mg/dL 74-106 Performed by certified packer operator automatic at [facility] CBC W/AUTO [id number] 06:53:00* Test Item Value Reference Range Comments WHITE BLOOD CELL (test code=WBC) 6.5 K/mm3 4.5-12.5 RED BLOOD CELL (test code=RBC) 3.44 mill/mm3 4.0-5.8 HEMOGLOBIN (test code=HGB) 10.2 gram/dL 13.0-17.5 HEMATOCRIT (test code=HCT) 32.2 % 42.0-52.0 MEAN CELL VOLUME (test code=MCV) 93.6 fL 80-98 MEAN CELL HGB (test code=MCH) 29.7 picogram 27.0-33.0 MEAN CELL HGB CONCETRATION (test code=MCHC) 31.7 gram/dL 33.0-36.0 RED CELL DISTRIBUTION WIDTH (test code=RDW) 15.1 % 11.6-16.2 RED CELL DISTRIBUTION WIDTH SD (test code=RDW-SD) 51.7 fL 37.0-51.0 PLATELET COUNT (test code=PLT) 123 K/mm3 150-450 MEAN PLATELET VOLUME (test code=MPV) 8.6 fL 6.7-11.0 NEUTROPHIL % (test code=NT%) 61.1 % 39.0-69.0 IMMATURE GRANULOCYTE % (test code=IG%) 1.2 % 0.0-5.0 LYMPHOCYTE % (test code=LY%) 16.2 % 25.0-55.0 MONOCYTE % (test code=MO%) 10.0 % 0.0-10.0 EOSINOPHIL % (test code=EO%) 10.6 % 0.0-5.0 BASOPHIL % (test code=BA%) 0.9 % 0.0-1.0 NUCLEATED RBC % (test code=NRBC%) 0.0 % 0-0 NEUTROPHIL # (test code=NT#) 3.96 K/mm3 1.8-7.7 IMMATURE GRANULOCYTE # (test code=IG#) 0.08 x10 3/uL 0-0.03 LYMPHOCYTE # (test code=LY#) 1.05 K/mm3 1.0-5.0 MONOCYTE # (test code=MO#) 0.65 K/mm3 0-0.8 EOSINOPHIL # (test code=EO#) 0.69 K/mm3 0.0-0.5 BASOPHIL # (test code=BA#) 0.06 K/mm3 0.0-0.2 NUCLEATED RBC # (test code=NRBC#) 0.00 K/mm3 0.0-0.1 MANUAL DIFF REQUIRED (test code=MDIFF) NO [id number] 20:35:00* Test Item Value Reference Range Comments GLUBED (test code=GLUBED) 94 mg/dL 74-106 Performed by certified packer operator automatic at [facility] [id number] 19:32:00* Test Item Value Reference Range Comments GLUBED (test code=GLUBED) 91 mg/dL 74-106 Performed by certified packer operator automatic at [facility] [id number] 11:48:00* Test Item Value Reference Range Comments GLUBED (test code=GLUBED) 106 mg/dL 74-106 Performed by certified packer operator automatic at [facility] [id number] 07:56:00* Test Item Value Reference Range Comments GLUBED (test code=GLUBED) 93 mg/dL 74-106 Performed by certified packer operator automatic at [facility] BASIC METABOLIC [id number] 05:49:00* Test Item Value Reference Range Comments SODIUM (test code=NA) 139 mmol/L 136-145 POTASSIUM (test code=K) 4.2 mmol/L 3.5-5.1 CHLORIDE (test code=CL) 105.0 mmol/L 98-107 CARBON DIOXIDE (test code=CO2) 27.0 mmol/L 21-32 ANION GAP (test code=GAP) 11.2 10-20 GLUCOSE (test code=GLU) 71 mg/dL 74-106 BLOOD UREA NITROGEN (test code=BUN) 24 mg/dL 7-18 GLOMERULAR FILTRATION RATE (test code=GFR) > 60 mL/min >=60 Estimated GFR by using Modified MDRD formula.Chronic kidney disease is defined as either kidney damageor GFR <60 mL/min/1.73 m2 for >3 months. CREATININE (test code=CREAT) 0.80 mg/dL 0.7-1.3 BUN/CREATININE RATIO (test code=BUN/CREA) 30.0 10-20 CALCIUM (test code=CA) 8.2 mg/dL 8.5-10.1 BASIC METABOLIC [id number] 05:38:00* Test Item Value Reference Range Comments SODIUM (test code=NA) 139 mmol/L 136-145 POTASSIUM (test code=K) 4.2 mmol/L 3.5-5.1 CHLORIDE (test code=CL) 105.0 mmol/L 98-107 CARBON DIOXIDE (test code=CO2) mmol/L 21-32 ANION GAP (test code=GAP) 10-20 GLUCOSE (test code=GLU) mg/dL 74-106 BLOOD UREA NITROGEN (test code=BUN) mg/dL 7-18 GLOMERULAR FILTRATION RATE (test code=GFR) mL/min >=60 CREATININE (test code=CREAT) mg/dL 0.7-1.3 BUN/CREATININE RATIO (test code=BUN/CREA) 10-20 CALCIUM (test code=CA) mg/dL 8.5-10.1 CBC W/AUTO [id number] 05:19:00* Test Item Value Reference Range Comments WHITE BLOOD CELL (test code=WBC) 5.2 K/mm3 4.5-12.5 RED BLOOD CELL (test code=RBC) 3.39 mill/mm3 4.0-5.8 HEMOGLOBIN (test code=HGB) 10.3 gram/dL 13.0-17.5 HEMATOCRIT (test code=HCT) 32.9 % 42.0-52.0 MEAN CELL VOLUME (test code=MCV) 97.1 fL 80-98 MEAN CELL HGB (test code=MCH) 30.4 picogram 27.0-33.0 MEAN CELL HGB CONCETRATION (test code=MCHC) 31.3 gram/dL 33.0-36.0 RED CELL DISTRIBUTION WIDTH (test code=RDW) 15.3 % 11.6-16.2 RED CELL DISTRIBUTION WIDTH SD (test code=RDW-SD) 54.6 fL 37.0-51.0 PLATELET COUNT (test code=PLT) 105 K/mm3 150-450 MEAN PLATELET VOLUME (test code=MPV) 8.3 fL 6.7-11.0 NEUTROPHIL % (test code=NT%) 56.2 % 39.0-69.0 IMMATURE GRANULOCYTE % (test code=IG%) 1.1 % 0.0-5.0 LYMPHOCYTE % (test code=LY%) 18.8 % 25.0-55.0 MONOCYTE % (test code=MO%) 10.0 % 0.0-10.0 EOSINOPHIL % (test code=EO%) 12.6 % 0.0-5.0 BASOPHIL % (test code=BA%) 1.3 % 0.0-1.0 NUCLEATED RBC % (test code=NRBC%) 0.0 % 0-0 NEUTROPHIL # (test code=NT#) 2.93 K/mm3 1.8-7.7 IMMATURE GRANULOCYTE # (test code=IG#) 0.06 x10 3/uL 0-0.03 LYMPHOCYTE # (test code=LY#) 0.98 K/mm3 1.0-5.0 MONOCYTE # (test code=MO#) 0.52 K/mm3 0-0.8 EOSINOPHIL # (test code=EO#) 0.66 K/mm3 0.0-0.5 BASOPHIL # (test code=BA#) 0.07 K/mm3 0.0-0.2 NUCLEATED RBC # (test code=NRBC#) 0.00 K/mm3 0.0-0.1 [id number] 20:53:00* Test Item Value Reference Range Comments GLUBED (test code=GLUBED) 79 mg/dL 74-106 Performed by certified packer operator automatic at [facility] [id number] 16:24:00* Test Item Value Reference Range Comments GLUBED (test code=GLUBED) 65 mg/dL 74-106 Performed by certified packer operator automatic at [facility] [id number] 16:13:00* Test Item Value Reference Range Comments GLUBED (test code=GLUBED) 57 mg/dL 74-106 Performed by certified packer operator automatic at [facility] [id number] 16:13:00* Test Item Value Reference Range Comments GLUBED (test code=GLUBED) 59 mg/dL 74-106 Performed by certified packer operator automatic at [facility] [id number] 12:09:00* Test Item Value Reference Range Comments GLUBED (test code=GLUBED) 112 mg/dL 74-106 Performed by certified packer operator automatic at [facility] BASIC METABOLIC [id number] 10:36:00* Test Item Value Reference Range Comments SODIUM (test code=NA) 137 mmol/L 136-145 POTASSIUM (test code=K) 4.3 mmol/L 3.5-5.1 CHLORIDE (test code=CL) 106.0 mmol/L 98-107 CARBON DIOXIDE (test code=CO2) 29.0 mmol/L 21-32 ANION GAP (test code=GAP) 6.3 10-20 GLUCOSE (test code=GLU) 114 mg/dL 74-106 BLOOD UREA NITROGEN (test code=BUN) 24 mg/dL 7-18 GLOMERULAR FILTRATION RATE (test code=GFR) > 60 mL/min >=60 Estimated GFR by using Modified MDRD formula.Chronic kidney disease is defined as either kidney damageor GFR <60 mL/min/1.73 m2 for >3 months. CREATININE (test code=CREAT) 1.00 mg/dL 0.7-1.3 BUN/CREATININE RATIO (test code=BUN/CREA) 24.0 10-20 CALCIUM (test code=CA) 8.4 mg/dL 8.5-10.1 CBC W/AUTO [id number] 09:53:00* Test Item Value Reference Range Comments WHITE BLOOD CELL (test code=WBC) 5.4 K/mm3 4.5-12.5 RED BLOOD CELL (test code=RBC) 3.39 mill/mm3 4.0-5.8 HEMOGLOBIN (test code=HGB) 10.3 gram/dL 13.0-17.5 HEMATOCRIT (test code=HCT) 32.2 % 42.0-52.0 MEAN CELL VOLUME (test code=MCV) 95.0 fL 80-98 MEAN CELL HGB (test code=MCH) 30.4 picogram 27.0-33.0 MEAN CELL HGB CONCETRATION (test code=MCHC) 32.0 gram/dL 33.0-36.0 RED CELL DISTRIBUTION WIDTH (test code=RDW) 15.2 % 11.6-16.2 RED CELL DISTRIBUTION WIDTH SD (test code=RDW-SD) 53.0 fL 37.0-51.0 PLATELET COUNT (test code=PLT) 114 K/mm3 150-450 MEAN PLATELET VOLUME (test code=MPV) 8.5 fL 6.7-11.0 NEUTROPHIL % (test code=NT%) 66.4 % 39.0-69.0 IMMATURE GRANULOCYTE % (test code=IG%) 0.6 % 0.0-5.0 LYMPHOCYTE % (test code=LY%) 11.2 % 25.0-55.0 MONOCYTE % (test code=MO%) 8.6 % 0.0-10.0 EOSINOPHIL % (test code=EO%) 11.9 % 0.0-5.0 BASOPHIL % (test code=BA%) 1.3 % 0.0-1.0 NUCLEATED RBC % (test code=NRBC%) 0.0 % 0-0 NEUTROPHIL # (test code=NT#) 3.61 K/mm3 1.8-7.7 IMMATURE GRANULOCYTE # (test code=IG#) 0.03 x10 3/uL 0-0.03 LYMPHOCYTE # (test code=LY#) 0.61 K/mm3 1.0-5.0 MONOCYTE # (test code=MO#) 0.47 K/mm3 0-0.8 EOSINOPHIL # (test code=EO#) 0.65 K/mm3 0.0-0.5 BASOPHIL # (test code=BA#) 0.07 K/mm3 0.0-0.2 NUCLEATED RBC # (test code=NRBC#) 0.00 K/mm3 0.0-0.1 [id number] 07:55:00* Test Item Value Reference Range Comments GLUBED (test code=GLUBED) 72 mg/dL 74-106 Performed by certified packer operator automatic at [facility] [id number] 21:22:00* Test Item Value Reference Range Comments GLUBED (test code=GLUBED) 109 mg/dL 74-106 Performed by certified packer operator automatic at [facility]Notified Nurse~ DILANTIN (PHENYTOIN)2019-04-30 19:37:00* Test Item Value Reference Range Comments DILANTIN (PHENYTOIN) (test code=DIL) 15.6 ug/mL 10.0-20.0 [id number] 16:09:00* Test Item Value Reference Range Comments GLUBED (test code=GLUBED) 107 mg/dL 74-106 Performed by certified packer operator automatic at [facility] [id number] 11:52:00* Test Item Value Reference Range Comments GLUBED (test code=GLUBED) 111 mg/dL 74-106 Performed by certified packer operator automatic at [facility] [id number] 07:57:00* Test Item Value Reference Range Comments GLUBED (test code=GLUBED) 61 mg/dL 74-106 Performed by certified packer operator automatic at [facility]Notified Nurse~ [id number] 21:20:00* Test Item Value Reference Range Comments GLUBED (test code=GLUBED) 104 mg/dL 74-106 Performed by certified packer operator automatic at [facility]Notified Nurse~ [id number] 18:15:00* Test Item Value Reference Range Comments GLUBED (test code=GLUBED) 74 mg/dL 74-106 Performed by certified packer operator automatic at [facility] [id number] 12:20:00* Test Item Value Reference Range Comments GLUBED (test code=GLUBED) 190 mg/dL 74-106 Performed by certified packer operator automatic at [facility] [id number] 08:20:00* Test Item Value Reference Range Comments GLUBED (test code=GLUBED) 93 mg/dL 74-106 Performed by certified packer operator automatic at [facility] FE W/TOTAL IRON BINDING CAP.2019-04-29 07:22:00* Test Item Value Reference Range Comments SERUM IRON (test code=IRON) 65 ug/dL 50-175 TOTAL IRON BINDING CAPACITY (test code=TIBC) 143 mcg/dL 250-450 IRON SATURATION (test code=FESAT) 45.45 % 13-45 VITAMIN [id number] 07:22:00* Test Item Value Reference Range Comments VITAMIN B12 (test code=VITB12) 830 pg/mL 193-986 FOLIC [id number] 07:22:00* Test Item Value Reference Range Comments FOLIC ACID (test code=FOL) 5.3 ng/mL 3.10-17.50 [id number] 07:22:00* Test Item Value Reference Range Comments FERRITIN (test code=PATRICK) 753 ng/mL 8-388 B-TYPE NATRIURETIC [id number] 07:15:00* Test Item Value Reference Range Comments B-TYPE NATRIURETIC PEPTIDE (test code=BNP) 33.56 pgram/mL 0-100 BASIC METABOLIC [id number] 07:15:00* Test Item Value Reference Range Comments SODIUM (test code=NA) 139 mmol/L 136-145 POTASSIUM (test code=K) 4.4 mmol/L 3.5-5.1 CHLORIDE (test code=CL) 107.0 mmol/L 98-107 CARBON DIOXIDE (test code=CO2) 27.0 mmol/L 21-32 ANION GAP (test code=GAP) 9.4 10-20 GLUCOSE (test code=GLU) 83 mg/dL 74-106 BLOOD UREA NITROGEN (test code=BUN) 25 mg/dL 7-18 GLOMERULAR FILTRATION RATE (test code=GFR) > 60 mL/min >=60 Estimated GFR by using Modified MDRD formula.Chronic kidney disease is defined as either kidney damageor GFR <60 mL/min/1.73 m2 for >3 months. CREATININE (test code=CREAT) 1.10 mg/dL 0.7-1.3 BUN/CREATININE RATIO (test code=BUN/CREA) 22.7 10-20 CALCIUM (test code=CA) 8.6 mg/dL 8.5-10.1 [id number] 07:15:00* Test Item Value Reference Range Comments PHOSPHORUS (test code=PHOS) 3.7 mg/dL 2.5-4.9 [id number] 07:15:00* Test Item Value Reference Range Comments MAGNESIUM (test code=MAG) 2.2 mg/dL 1.8-2.4 THYROID PROFILE [id number] 07:15:00* Test Item Value Reference Range Comments T3 UPTAKE (test code=T3UP) 35.0 % 30.0-40.0 T4 (THYROXINE) (test code=T4) 6.1 ug/dL 4.5-13.9 T7 (FREE THYROXINE INDEX) (test code=T7) 2.13 FTI 1.3-5.1 THYROID STIMULATING HORMONE (test code=TSH) 4.550 uIU/mL 0.36-3.74 TSH REFERENCE RANGES: EUTHYROID: 0.35 - 4.3 mIU/mL HYPO : > 5.5 mIU/mL HYPER : < 0.35 mIU/mL T4 [id number] 07:15:00* Test Item Value Reference Range Comments T4 FREE (test code=T4F) 0.80 ng/dL 0.76-1.46 DILANTIN (PHENYTOIN)2019-04-29 07:00:00* Test Item Value Reference Range Comments DILANTIN (PHENYTOIN) (test code=DIL) 23.7 ug/mL 10.0-20.0 BASIC METABOLIC [id number] 06:58:00* Test Item Value Reference Range Comments SODIUM (test code=NA) 139 mmol/L 136-145 POTASSIUM (test code=K) 4.4 mmol/L 3.5-5.1 CHLORIDE (test code=CL) 107.0 mmol/L 98-107 CARBON DIOXIDE (test code=CO2) mmol/L 21-32 ANION GAP (test code=GAP) 10-20 GLUCOSE (test code=GLU) mg/dL 74-106 BLOOD UREA NITROGEN (test code=BUN) mg/dL 7-18 GLOMERULAR FILTRATION RATE (test code=GFR) mL/min >=60 CREATININE (test code=CREAT) mg/dL 0.7-1.3 BUN/CREATININE RATIO (test code=BUN/CREA) 10-20 CALCIUM (test code=CA) mg/dL 8.5-10.1 [id number] 06:58:00* Test Item Value Reference Range Comments PHOSPHORUS (test code=PHOS) mg/dL 2.5-4.9 [id number] 06:58:00* Test Item Value Reference Range Comments MAGNESIUM (test code=MAG) mg/dL 1.8-2.4 THYROID PROFILE [id number] 06:58:00* Test Item Value Reference Range Comments T3 UPTAKE (test code=T3UP) % 30.0-40.0 T4 (THYROXINE) (test code=T4) ug/dL 4.5-13.9 T7 (FREE THYROXINE INDEX) (test code=T7) FTI 1.3-5.1 THYROID STIMULATING HORMONE (test code=TSH) uIU/mL 0.36-3.74 CBC W/AUTO [id number] 06:37:00* Test Item Value Reference Range Comments WHITE BLOOD CELL (test code=WBC) 7.6 K/mm3 4.5-12.5 RED BLOOD CELL (test code=RBC) 3.52 mill/mm3 4.0-5.8 HEMOGLOBIN (test code=HGB) 10.7 gram/dL 13.0-17.5 HEMATOCRIT (test code=HCT) 34.4 % 42.0-52.0 MEAN CELL VOLUME (test code=MCV) 97.7 fL 80-98 MEAN CELL HGB (test code=MCH) 30.4 picogram 27.0-33.0 MEAN CELL HGB CONCETRATION (test code=MCHC) 31.1 gram/dL 33.0-36.0 RED CELL DISTRIBUTION WIDTH (test code=RDW) 15.3 % 11.6-16.2 RED CELL DISTRIBUTION WIDTH SD (test code=RDW-SD) 54.6 fL 37.0-51.0 PLATELET COUNT (test code=PLT) 127 K/mm3 150-450 MEAN PLATELET VOLUME (test code=MPV) 8.5 fL 6.7-11.0 NEUTROPHIL % (test code=NT%) 67.9 % 39.0-69.0 IMMATURE GRANULOCYTE % (test code=IG%) 0.5 % 0.0-5.0 LYMPHOCYTE % (test code=LY%) 14.1 % 25.0-55.0 MONOCYTE % (test code=MO%) 8.9 % 0.0-10.0 EOSINOPHIL % (test code=EO%) 7.9 % 0.0-5.0 BASOPHIL % (test code=BA%) 0.7 % 0.0-1.0 NUCLEATED RBC % (test code=NRBC%) 0.0 % 0-0 NEUTROPHIL # (test code=NT#) 5.14 K/mm3 1.8-7.7 IMMATURE GRANULOCYTE # (test code=IG#) 0.04 x10 3/uL 0-0.03 LYMPHOCYTE # (test code=LY#) 1.07 K/mm3 1.0-5.0 MONOCYTE # (test code=MO#) 0.67 K/mm3 0-0.8 EOSINOPHIL # (test code=EO#) 0.60 K/mm3 0.0-0.5 BASOPHIL # (test code=BA#) 0.05 K/mm3 0.0-0.2 NUCLEATED RBC # (test code=NRBC#) 0.00 K/mm3 0.0-0.1 [id number] 20:37:00* Test Item Value Reference Range Comments GLUBED (test code=GLUBED) 147 mg/dL 74-106 Performed by certified packer operator automatic at [facility] [id number] 16:13:00* Test Item Value Reference Range Comments GLUBED (test code=GLUBED) 166 mg/dL 74-106 Performed by certified packer operator automatic at [facility] DILANTIN (PHENYTOIN)2019-04-28 12:43:00* Test Item Value Reference Range Comments DILANTIN (PHENYTOIN) (test code=DIL) 25.6 ug/mL 10.0-20.0 [id number] 11:51:00* Test Item Value Reference Range Comments GLUBED (test code=GLUBED) 306 mg/dL 74-106 Performed by certified packer operator automatic at [facility] [id number] 07:58:00* Test Item Value Reference Range Comments GLUBED (test code=GLUBED) 76 mg/dL 74-106 Performed by certified packer operator automatic at [facility] [id number] 20:27:00* Test Item Value Reference Range Comments GLUBED (test code=GLUBED) 121 mg/dL 74-106 Performed by certified packer operator automatic at [facility] URINALYSIS [id number] 18:52:00* Test Item Value Reference Range Comments UA COLOR (test code=COLU) LIGHT YELLOW YELLOW UA APPEARANCE (test code=APPU) TURBID CLEAR UA GLUCOSE DIPSTICK (test code=DGLUU) NEGATIVE mg/dL NEGATIVE UA BILIRUBIN DIPSTICK (test code=BILU) NEGATIVE mg/dL NEGATIVE UA KETONE DIPSTICK (test code=KETU) NEGATIVE mg/dL NEGATIVE UA SPECIFIC GRAVITY (test code=SGU) 1.007 1.001-1.035 UA BLOOD DIPSTICK (test code=KIMBERLEE) 0.2 mg/dL (2+) mg/dL NEGATIVE UA PH DIPSTICK (test code=RENEE) 7.0 5.0-8.0 UA PROTEIN DIPSTICK (test code=PROU) 200 (2+) mg/dL NEGATIVE UA UROBILINIOGEN DIPSTICK (test code=URO) Normal mg/dL NEGATIVE UA NITRITE DIPSTICK (test code=PAN) POSITIVE NEGATIVE UA LEUKOCYTE ESTERASE W REFLEX (test code=LEUUR) 500 Maury/uL (3+) Maury/uL NEGATIVE UA WBC (test code=WBCU) >200 per HPF 0-5 UA RBC (test code=RBCU) 6-10 #/HPF 0-5 UA WBC CLUMPS (test code=WBCUCL) >10 /HPF NONE UA EPITHELIAL CELLS (test code=EPIU) Few (2-5/hpf) per HPF FEW UA BACTERIA (test code=BACU) MANY #/HPF NONE UA MUCUS (test code=MUCU) MODERATE #/LPF FEW SPECIMEN COMMENTS: first UA contaminated; please cath in COMMENTS TO PHLEBOTOMIS T: order to obtain sampleUrine Source? [id number] 16:19:00* Test Item Value Reference Range Comments GLUBED (test code=GLUBED) 152 mg/dL 74-106 Performed by certified packer operator automatic at [facility] [id number] 11:56:00* Test Item Value Reference Range Comments GLUBED (test code=GLUBED) 134 mg/dL 74-106 Performed by certified packer operator automatic at [facility] [id number] 08:02:00* Test Item Value Reference Range Comments GLUBED (test code=GLUBED) 90 mg/dL 74-106 Performed by certified packer operator automatic at [facility] COMPREHENSIVE METABOLIC [id number] 07:11:00* Test Item Value Reference Range Comments SODIUM (test code=NA) 138 mmol/L 136-145 POTASSIUM (test code=K) 4.6 mmol/L 3.5-5.1 CHLORIDE (test code=CL) 107.0 mmol/L 98-107 CARBON DIOXIDE (test code=CO2) 28.0 mmol/L 21-32 ANION GAP (test code=GAP) 7.6 10-20 GLUCOSE (test code=GLU) 87 mg/dL 74-106 BLOOD UREA NITROGEN (test code=BUN) 21 mg/dL 7-18 GLOMERULAR FILTRATION RATE (test code=GFR) > 60 mL/min >=60 Estimated GFR by using Modified MDRD formula.Chronic kidney disease is defined as either kidney damageor GFR <60 mL/min/1.73 m2 for >3 months. CREATININE (test code=CREAT) 1.00 mg/dL 0.7-1.3 BUN/CREATININE RATIO (test code=BUN/CREA) 21.0 10-20 TOTAL PROTEIN (test code=PROT) 7.8 gram/dL 6.4-8.2 ALBUMIN (test code=ALB) 2.2 g/dL 3.4-5.0 GLOBULIN (test code=GLOB) 5.6 gram/dL 2.7-4.2 ALBUMIN/GLOBULIN RATIO (test code=A/G) 0.4 0.75-1.50 CALCIUM (test code=CA) 8.8 mg/dL 8.5-10.1 BILIRUBIN TOTAL (test code=BILT) 0.30 mg/dL 0.0-1.0 SGOT/AST (test code=AST) 19 IUnit/L 15-37 SGPT/ALT (test code=ALT) 9 IUnit/L 12-78 ALKALINE PHOSPHATASE TOTAL (test code=ALKP) 137 IUnit/L 45-117 Note change in reference range due to change in reagent. [id number] 07:11:00* Test Item Value Reference Range Comments PHOSPHORUS (test code=PHOS) 3.1 mg/dL 2.5-4.9 [id number] 07:11:00* Test Item Value Reference Range Comments MAGNESIUM (test code=MAG) 2.3 mg/dL 1.8-2.4 CBC W/AUTO [id number] 06:59:00* Test Item Value Reference Range Comments WHITE BLOOD CELL (test code=WBC) 6.8 K/mm3 4.5-12.5 RED BLOOD CELL (test code=RBC) 3.47 mill/mm3 4.0-5.8 HEMOGLOBIN (test code=HGB) 10.2 gram/dL 13.0-17.5 HEMATOCRIT (test code=HCT) 33.8 % 42.0-52.0 MEAN CELL VOLUME (test code=MCV) 97.4 fL 80-98 MEAN CELL HGB (test code=MCH) 29.4 picogram 27.0-33.0 MEAN CELL HGB CONCETRATION (test code=MCHC) 30.2 gram/dL 33.0-36.0 RED CELL DISTRIBUTION WIDTH (test code=RDW) 15.5 % 11.6-16.2 RED CELL DISTRIBUTION WIDTH SD (test code=RDW-SD) 55.5 fL 37.0-51.0 PLATELET COUNT (test code=PLT) 130 K/mm3 150-450 MEAN PLATELET VOLUME (test code=MPV) 8.3 fL 6.7-11.0 NEUTROPHIL % (test code=NT%) 60.1 % 39.0-69.0 IMMATURE GRANULOCYTE % (test code=IG%) 0.3 % 0.0-5.0 LYMPHOCYTE % (test code=LY%) 18.0 % 25.0-55.0 MONOCYTE % (test code=MO%) 8.9 % 0.0-10.0 EOSINOPHIL % (test code=EO%) 11.8 % 0.0-5.0 BASOPHIL % (test code=BA%) 0.9 % 0.0-1.0 NUCLEATED RBC % (test code=NRBC%) 0.0 % 0-0 NEUTROPHIL # (test code=NT#) 4.11 K/mm3 1.8-7.7 IMMATURE GRANULOCYTE # (test code=IG#) 0.02 x10 3/uL 0-0.03 LYMPHOCYTE # (test code=LY#) 1.23 K/mm3 1.0-5.0 MONOCYTE # (test code=MO#) 0.61 K/mm3 0-0.8 EOSINOPHIL # (test code=EO#) 0.81 K/mm3 0.0-0.5 BASOPHIL # (test code=BA#) 0.06 K/mm3 0.0-0.2 NUCLEATED RBC # (test code=NRBC#) 0.00 K/mm3 0.0-0.1 MANUAL DIFF REQUIRED (test code=MDIFF) NO COMPREHENSIVE METABOLIC [id number] 06:55:00* Test Item Value Reference Range Comments SODIUM (test code=NA) 138 mmol/L 136-145 POTASSIUM (test code=K) 4.6 mmol/L 3.5-5.1 CHLORIDE (test code=CL) 107.0 mmol/L 98-107 CARBON DIOXIDE (test code=CO2) mmol/L 21-32 ANION GAP (test code=GAP) 10-20 GLUCOSE (test code=GLU) mg/dL 74-106 BLOOD UREA NITROGEN (test code=BUN) mg/dL 7-18 GLOMERULAR FILTRATION RATE (test code=GFR) mL/min >=60 CREATININE (test code=CREAT) mg/dL 0.7-1.3 BUN/CREATININE RATIO (test code=BUN/CREA) 10-20 TOTAL PROTEIN (test code=PROT) gram/dL 6.4-8.2 ALBUMIN (test code=ALB) g/dL 3.4-5.0 GLOBULIN (test code=GLOB) gram/dL 2.7-4.2 ALBUMIN/GLOBULIN RATIO (test code=A/G) 0.75-1.50 CALCIUM (test code=CA) mg/dL 8.5-10.1 BILIRUBIN TOTAL (test code=BILT) mg/dL 0.0-1.0 SGOT/AST (test code=AST) IUnit/L 15-37 SGPT/ALT (test code=ALT) IUnit/L 12-78 ALKALINE PHOSPHATASE TOTAL (test code=ALKP) IUnit/L 45-117 [id number] 06:55:00* Test Item Value Reference Range Comments PHOSPHORUS (test code=PHOS) mg/dL 2.5-4.9 [id number] 06:55:00* Test Item Value Reference Range Comments MAGNESIUM (test code=MAG) mg/dL 1.8-2.4 [id number] 20:21:00* Test Item Value Reference Range Comments GLUBED (test code=GLUBED) 136 mg/dL 74-106 Performed by certified packer operator automatic at [facility] [id number] 20:21:00* Test Item Value Reference Range Comments GLUBED (test code=GLUBED) 73 mg/dL 74-106 Performed by certified packer operator automatic at [facility] [id number] 11:49:00* Test Item Value Reference Range Comments GLUBED (test code=GLUBED) 211 mg/dL 74-106 Performed by certified packer operator automatic at [facility] [id number] 08:15:00* Test Item Value Reference Range Comments GLUBED (test code=GLUBED) 104 mg/dL 74-106 Performed by certified packer operator automatic at [facility] [id number] 21:51:00* Test Item Value Reference Range Comments GLUBED (test code=GLUBED) 99 mg/dL 74-106 Performed by certified packer operator automatic at [facility] [id number] 21:33:00* Test Item Value Reference Range Comments GLUBED (test code=GLUBED) 69 mg/dL 74-106 Performed by certified packer operator automatic at [facility] URINALYSIS [id number] 18:03:00* Test Item Value Reference Range Comments UA COLOR (test code=COLU) YELLOW YELLOW UA APPEARANCE (test code=APPU) Cloudy CLEAR UA GLUCOSE DIPSTICK (test code=DGLUU) NEGATIVE mg/dL NEGATIVE UA BILIRUBIN DIPSTICK (test code=BILU) NEGATIVE mg/dL NEGATIVE UA KETONE DIPSTICK (test code=KETU) NEGATIVE mg/dL NEGATIVE UA SPECIFIC GRAVITY (test code=SGU) 1.015 1.001-1.035 UA BLOOD DIPSTICK (test code=KIMBERLEE) 0.06 mg/dL (1+) mg/dL NEGATIVE UA PH DIPSTICK (test code=RENEE) 6.5 5.0-8.0 UA PROTEIN DIPSTICK (test code=PROU) 30 (1+) mg/dL NEGATIVE UA UROBILINIOGEN DIPSTICK (test code=URO) Normal mg/dL NEGATIVE UA NITRITE DIPSTICK (test code=PAN) NEGATIVE NEGATIVE UA LEUKOCYTE ESTERASE W REFLEX (test code=LEUUR) 500 Maury/uL (3+) Maury/uL NEGATIVE UA WBC (test code=WBCU) >200 per HPF 0-5 UA RBC (test code=RBCU) 6-10 #/HPF 0-5 UA WBC CLUMPS (test code=WBCUCL) >10 /HPF NONE UA EPITHELIAL CELLS (test code=EPIU) FEW per HPF FEW UA BACTERIA (test code=BACU) MANY #/HPF NONE UA MUCUS (test code=MUCU) FEW #/LPF FEW Urine Source? CatheterURINALYSIS [id number] 18:02:00* Test Item Value Reference Range Comments UA COLOR (test code=COLU) YELLOW YELLOW UA APPEARANCE (test code=APPU) Cloudy CLEAR UA GLUCOSE DIPSTICK (test code=DGLUU) NEGATIVE mg/dL NEGATIVE UA BILIRUBIN DIPSTICK (test code=BILU) NEGATIVE mg/dL NEGATIVE UA KETONE DIPSTICK (test code=KETU) NEGATIVE mg/dL NEGATIVE UA SPECIFIC GRAVITY (test code=SGU) 1.015 1.001-1.035 UA BLOOD DIPSTICK (test code=KIMBERLEE) 0.06 mg/dL (1+) mg/dL NEGATIVE UA PH DIPSTICK (test code=RENEE) 6.5 5.0-8.0 UA PROTEIN DIPSTICK (test code=PROU) 30 (1+) mg/dL NEGATIVE UA UROBILINIOGEN DIPSTICK (test code=URO) Normal mg/dL NEGATIVE UA NITRITE DIPSTICK (test code=PAN) NEGATIVE NEGATIVE UA LEUKOCYTE ESTERASE W REFLEX (test code=LEUUR) 500 Maury/uL (3+) Maury/uL NEGATIVE UA WBC (test code=WBCU) per HPF 0-5 UA RBC (test code=RBCU) per HPF 0-5 UA EPITHELIAL CELLS (test code=EPIU) per HPF Few UA BACTERIA (test code=BACU) per HPF NONE Urine Source? CatheterBASIC METABOLIC [id number] 15:54:00* Test Item Value Reference Range Comments SODIUM (test code=NA) 136 mmol/L 136-145 POTASSIUM (test code=K) 5.2 mmol/L 3.5-5.1 CHLORIDE (test code=CL) 108.0 mmol/L 98-107 CARBON DIOXIDE (test code=CO2) 25.0 mmol/L 21-32 ANION GAP (test code=GAP) 8.2 10-20 GLUCOSE (test code=GLU) 119 mg/dL 74-106 BLOOD UREA NITROGEN (test code=BUN) 24 mg/dL 7-18 GLOMERULAR FILTRATION RATE (test code=GFR) > 60 mL/min >=60 Estimated GFR by using Modified MDRD formula.Chronic kidney disease is defined as either kidney damageor GFR <60 mL/min/1.73 m2 for >3 months. CREATININE (test code=CREAT) 1.10 mg/dL 0.7-1.3 BUN/CREATININE RATIO (test code=BUN/CREA) 21.8 10-20 CALCIUM (test code=CA) 8.4 mg/dL 8.5-10.1 HEPATIC FUNCTION [id number] 15:54:00* Test Item Value Reference Range Comments TOTAL PROTEIN (test code=PROT) 8.8 gram/dL 6.4-8.2 ALBUMIN (test code=ALB) 2.4 g/dL 3.4-5.0 GLOBULIN (test code=GLOB) 6.4 gram/dL 2.7-4.2 ALBUMIN/GLOBULIN RATIO (test code=A/G) 0.4 0.75-1.50 BILIRUBIN TOTAL (test code=BILT) 0.20 mg/dL 0.0-1.0 BILIRUBIN DIRECT (test code=BILD) 0.09 mg/dL 0.0-0.20 SGOT/AST (test code=AST) 30 IUnit/L 15-37 SGPT/ALT (test code=ALT) 11 IUnit/L 12-78 ALKALINE PHOSPHATASE TOTAL (test code=ALKP) 166 IUnit/L 45-117 Note change in reference range due to change in reagent. [id number] 15:54:00* Test Item Value Reference Range Comments LIPASE (test code=LIP) 132 U/L 73.0-393.0 [id number] 15:54:00* Test Item Value Reference Range Comments TROPONIN-I (test code=TROPI) <0.015 ng/mL 0-0.045 BASIC METABOLIC [id number] 15:33:00* Test Item Value Reference Range Comments SODIUM (test code=NA) 136 mmol/L 136-145 POTASSIUM (test code=K) 5.2 mmol/L 3.5-5.1 CHLORIDE (test code=CL) 108.0 mmol/L 98-107 CARBON DIOXIDE (test code=CO2) mmol/L 21-32 ANION GAP (test code=GAP) 10-20 GLUCOSE (test code=GLU) mg/dL 74-106 BLOOD UREA NITROGEN (test code=BUN) mg/dL 7-18 GLOMERULAR FILTRATION RATE (test code=GFR) mL/min >=60 CREATININE (test code=CREAT) mg/dL 0.7-1.3 BUN/CREATININE RATIO (test code=BUN/CREA) 10-20 CALCIUM (test code=CA) mg/dL 8.5-10.1 HEPATIC FUNCTION [id number] 15:33:00* Test Item Value Reference Range Comments TOTAL PROTEIN (test code=PROT) gram/dL 6.4-8.2 ALBUMIN (test code=ALB) g/dL 3.4-5.0 GLOBULIN (test code=GLOB) gram/dL 2.7-4.2 ALBUMIN/GLOBULIN RATIO (test code=A/G) 0.75-1.50 BILIRUBIN TOTAL (test code=BILT) mg/dL 0.0-1.0 BILIRUBIN DIRECT (test code=BILD) mg/dL 0.0-0.20 SGOT/AST (test code=AST) IUnit/L 15-37 SGPT/ALT (test code=ALT) IUnit/L 12-78 ALKALINE PHOSPHATASE TOTAL (test code=ALKP) IUnit/L 45-117 [id number] 15:33:00* Test Item Value Reference Range Comments LIPASE (test code=LIP) U/L 73.0-393.0 [id number] 15:33:00* Test Item Value Reference Range Comments TROPONIN-I (test code=TROPI) ng/mL 0-0.045 CBC W/AUTO [id number] 15:20:00* Test Item Value Reference Range Comments WHITE BLOOD CELL (test code=WBC) 8.0 K/mm3 4.5-12.5 RED BLOOD CELL (test code=RBC) 4.01 mill/mm3 4.0-5.8 HEMOGLOBIN (test code=HGB) 12.0 gram/dL 13.0-17.5 HEMATOCRIT (test code=HCT) 39.3 % 42.0-52.0 MEAN CELL VOLUME (test code=MCV) 98.0 fL 80-98 MEAN CELL HGB (test code=MCH) 29.9 picogram 27.0-33.0 MEAN CELL HGB CONCETRATION (test code=MCHC) 30.5 gram/dL 33.0-36.0 RED CELL DISTRIBUTION WIDTH (test code=RDW) 15.5 % 11.6-16.2 RED CELL DISTRIBUTION WIDTH SD (test code=RDW-SD) 56.1 fL 37.0-51.0 PLATELET COUNT (test code=PLT) 146 K/mm3 150-450 MEAN PLATELET VOLUME (test code=MPV) 8.2 fL 6.7-11.0 NEUTROPHIL % (test code=NT%) 68.3 % 39.0-69.0 IMMATURE GRANULOCYTE % (test code=IG%) 0.5 % 0.0-5.0 LYMPHOCYTE % (test code=LY%) 12.3 % 25.0-55.0 MONOCYTE % (test code=MO%) 7.6 % 0.0-10.0 EOSINOPHIL % (test code=EO%) 10.4 % 0.0-5.0 BASOPHIL % (test code=BA%) 0.9 % 0.0-1.0 NUCLEATED RBC % (test code=NRBC%) 0.0 % 0-0 NEUTROPHIL # (test code=NT#) 5.46 K/mm3 1.8-7.7 IMMATURE GRANULOCYTE # (test code=IG#) 0.04 x10 3/uL 0-0.03 LYMPHOCYTE # (test code=LY#) 0.98 K/mm3 1.0-5.0 MONOCYTE # (test code=MO#) 0.61 K/mm3 0-0.8 EOSINOPHIL # (test code=EO#) 0.83 K/mm3 0.0-0.5 BASOPHIL # (test code=BA#) 0.07 K/mm3 0.0-0.2 NUCLEATED RBC # (test code=NRBC#) 0.00 K/mm3 0.0-0.1 MANUAL DIFF REQUIRED (test code=MDIFF) NO - XR CHEST 1 [id number] 14:59:00 FAX: Param Odom DO [place]: St: PRE Name: REBEL TRONCOSO [facility] : [birth year] Age/S: 68/M [address] [facility] Unit #: [id number] Loc: [place] [address] Phys: Parma Odom DO Acct: [id number] Dis Date: Status: PRE ER PHONE #: [phone] Exam Date: 04/25/2019 1452 FAX #: [phone] Reason: CODE STROKE EXAMS: CPT CODE: [id number] XR CHEST 1 V [id number] REASON FOR EXAM: CODE STROKE EXAM ORDER DATE: 04/25/2019 2:18 PM Ordering Ivan: Param Odom DO PROCEDURE: - XR CHEST 1 V COMPAR ELMA: FINDINGS: Portable AP frontal view of the chest obtained at 2:48 PM shows clear lungs without evidence of consolidation. There is no evidence of effusion. The heart size is within normal limits. Pulmon jean marie vasculatures are unremarkable. IMPRESSION: No active diseas e. at 8614 Reported and signed by: Ivan Madison C: Param Odom DO Technologist: CRISTOBAL WEN; STUDENT TECHNOLOGIST Trnscrd Date/Time/By: 04/25/2019 (1567) : By: Reji Orig Print D/T: S: 04/25/2019 (6595) PAGE 1 Signed Report PROTHROMBIN [id number] 14:58:00* Test Item Value Reference Range Comments PROTHROMBIN TIME PATIENT (test code=PTP) 14.1 seconds 9.0-14.0 INTERNATIONAL NORMAL RATIO (test code=INR) 1.2 0.8-1.2 The therapeutic range for oral anticoagulant therapy formost indications is an international normalized ratio (INR)of between 2.0 and 3.0. The recommended therapeutic INRrange for various clinical situations is listed below: Clinical Situation INR range Pulmonary e mbolism treatment (2.0-3.0)Venous thrombosis treatmentVenous thrombosis prophylaxis (high risk surgery)Prevention of systemic embolism from: Acute myocardial infarction Valvular heart disease Atrial fibrillation Mechanical prosthetic heart valves (2.5-3.5) IS PATIENT ON ANTICOAGULANTS? NTHROMBOPLASTIN TIME [id number] 14:58:00* Test Item Value Reference Range Comments THROMBOPLASTIN TIME PARTIAL (test code=PTT) 36.5 seconds 25.0-36.5 IS PATIENT ON ANTICOAGULANTS? N- CT HEAD/BRAIN W/O [id number] 14:45:00 Name: REBEL ROD [facility] : 1950 Age/S: 68 / M [address] [facility] Unit #: [id number] Loc: [place] [address] Phys: Param Odom DO Acct: [id number] Dis Date: Status: PRE ER PHONE #: Exam Date: 04/25/2019 5843 FAX #: Reason: slurred speech EXAMS: CPT CODE: [id number] CT HEAD/BRAIN W/O CONT 29056 REASON FOR EXAM: slurred speech EXAM ORDER DATE: 04/25/2019 2:18 PM Or sandeep Love: Param T Tenke, DO PROCEDURE: - CT HEAD/BRAIN W/O CONT COMPARISON: FINDINGS: CT images of the brain were o btained without IV contrast. Dose modulation, iterative reconstruction, a nd/or weight based adjustment of the MA/KV was utilized to reduce the radi ation dose to as low as reasonably achievable. The brain pa renchyma is within normal limits. The landaverde-white matter delineation is unr emarkable. The ventricles, cisterns, and sulci are unremarkable. There is no evidence of hemorrhage, mass, mass effect. There is no evidence of acu te or old infarct. The calvarium is intact. IMPRESSION: U nremarkable brain. Electronically Signed by Ivan Yousif 04/25/2019 at 1445 Reported and signed by: Dale Madison CC: Param Odom DO Zac hnologist:Norberto Goncalves RT(R),(MR),(CT); CTDI: DLP: Trnscb Date/T cesar: 04/25/2019 (5695) t.SDR.VTL Orig Print D/T: S: 04/25 (3830) PAGE 1 Signed Report [id number] 02:34:00* Test Item Value Reference Range Comments GLUBED (test code=GLUBED) 122 mg/dL 74-106 Performed by certified packer operator automatic at [facility] [id number] 02:34:00* Test Item Value Reference Range Comments GLUBED (test code=GLUBED) 147 mg/dL 74-106 Performed by certified packer operator automatic at [facility] [id number] 02:34:00* Test Item Value Reference Range Comments GLUBED (test code=GLUBED) 138 mg/dL 74-106 Performed by certified packer operator automatic at [facility] [id number] 20:38:00* Test Item Value Reference Range Comments GLUBED (test code=GLUBED) 140 mg/dL 74-106 Performed by certified packer operator automatic at [facility] [id number] 16:15:00* Test Item Value Reference Range Comments GLUBED (test code=GLUBED) 101 mg/dL 74-106 Performed by certified packer operator automatic at [facility] [id number] 13:05:00* Test Item Value Reference Range Comments GLUBED (test code=GLUBED) 117 mg/dL 74-106 Performed by certified packer operator automatic at [facility] [id number] 08:22:00* Test Item Value Reference Range Comments GLUBED (test code=GLUBED) 99 mg/dL 74-106 Performed by certified packer operator automatic at [facility] BASIC METABOLIC [id number] 06:28:00* Test Item Value Reference Range Comments SODIUM (test code=NA) 141 mmol/L 136-145 POTASSIUM (test code=K) 3.8 mmol/L 3.5-5.1 CHLORIDE (test code=CL) 111.0 mmol/L 98-107 CARBON DIOXIDE (test code=CO2) 22.0 mmol/L 21-32 ANION GAP (test code=GAP) 11.8 10-20 GLUCOSE (test code=GLU) 90 mg/dL 74-106 BLOOD UREA NITROGEN (test code=BUN) 35 mg/dL 7-18 GLOMERULAR FILTRATION RATE (test code=GFR) > 60 mL/min >=60 Estimated GFR by using Modified MDRD formula.Chronic kidney disease is defined as either kidney damageor GFR <60 mL/min/1.73 m2 for >3 months. CREATININE (test code=CREAT) 0.90 mg/dL 0.7-1.3 BUN/CREATININE RATIO (test code=BUN/CREA) 38.9 10-20 CALCIUM (test code=CA) 8.1 mg/dL 8.5-10.1 CBC W/AUTO [id number] 06:15:00* Test Item Value Reference Range Comments WHITE BLOOD CELL (test code=WBC) 7.8 K/mm3 4.5-12.5 RED BLOOD CELL (test code=RBC) 3.17 mill/mm3 4.0-5.8 HEMOGLOBIN (test code=HGB) 9.5 gram/dL 13.0-17.5 HEMATOCRIT (test code=HCT) 29.8 % 42.0-52.0 MEAN CELL VOLUME (test code=MCV) 94.0 fL 80-98 MEAN CELL HGB (test code=MCH) 30.0 picogram 27.0-33.0 MEAN CELL HGB CONCETRATION (test code=MCHC) 31.9 gram/dL 33.0-36.0 RED CELL DISTRIBUTION WIDTH (test code=RDW) 14.8 % 11.6-16.2 RED CELL DISTRIBUTION WIDTH SD (test code=RDW-SD) 51.5 fL 37.0-51.0 PLATELET COUNT (test code=PLT) 150 K/mm3 150-450 MEAN PLATELET VOLUME (test code=MPV) 8.7 fL 6.7-11.0 NEUTROPHIL % (test code=NT%) 64.9 % 39.0-69.0 IMMATURE GRANULOCYTE % (test code=IG%) 1.8 % 0.0-5.0 LYMPHOCYTE % (test code=LY%) 18.1 % 25.0-55.0 MONOCYTE % (test code=MO%) 5.8 % 0.0-10.0 EOSINOPHIL % (test code=EO%) 9.0 % 0.0-5.0 BASOPHIL % (test code=BA%) 0.4 % 0.0-1.0 NUCLEATED RBC % (test code=NRBC%) 0.0 % 0-0 NEUTROPHIL # (test code=NT#) 5.08 K/mm3 1.8-7.7 IMMATURE GRANULOCYTE # (test code=IG#) 0.14 x10 3/uL 0-0.03 LYMPHOCYTE # (test code=LY#) 1.41 K/mm3 1.0-5.0 MONOCYTE # (test code=MO#) 0.45 K/mm3 0-0.8 EOSINOPHIL # (test code=EO#) 0.70 K/mm3 0.0-0.5 BASOPHIL # (test code=BA#) 0.03 K/mm3 0.0-0.2 NUCLEATED RBC # (test code=NRBC#) 0.00 K/mm3 0.0-0.1 MANUAL DIFF REQUIRED (test code=MDIFF) NO [id number] 22:06:00* Test Item Value Reference Range Comments GLUBED (test code=GLUBED) 115 mg/dL 74-106 Performed by certified packer operator automatic at [facility]Notified Nurse~ [id number] 16:13:00* Test Item Value Reference Range Comments GLUBED (test code=GLUBED) 127 mg/dL 74-106 Performed by certified packer operator automatic at [facility] [id number] 12:06:00* Test Item Value Reference Range Comments GLUBED (test code=GLUBED) 159 mg/dL 74-106 Performed by certified packer operator automatic at [facility] [id number] 08:15:00* Test Item Value Reference Range Comments GLUBED (test code=GLUBED) 102 mg/dL 74-106 Performed by certified packer operator automatic at [facility] [id number] 20:56:00* Test Item Value Reference Range Comments GLUBED (test code=GLUBED) 162 mg/dL 74-106 Performed by certified packer operator automatic at [facility]Notified Nurse~ - XR CHEST 2 [id number] 17:37:00 FAX: Nate Hollis MD [place]: B St: ADM FAX: Yecenia Lobo NP [phone] Name: REBEL ROD [facility] : 1950 Age/S: 68/M [address] [facility] Unit #: [id number] Loc: V.[address] [place] [address] Phys: Yecenia Lobo NP Acct: [id number] Dis Date: Status: ADM IN PHONE #: [phone] Exam Date: 04/08/2019 1331 FAX #: [phone] Reason: r/o pneumonia EXAMS: CPT CODE: [id number] XR CHEST 2 V 89760 TECHNIQUE: 2 views of the chest COMPARISON: Chest x-ray 04/05/2019 FINDINGS: Elevation right hemidiaphragm. Basilar atelectasis. No pneumothorax. No congestion. Thoracolumbar spine fusion. Overall since old chest x-ray 04/05/2019 improving aeration of the lung mejias. IMPRESSION: Overall since old chest x- ray 04/05/2019 improving aeration of the lung mejias. at 9518 Reported and signed by: Scott Yen M.D. CC: Nate Rachel; Yecenia Lobo NP Technologist: GRACIELA SHERMAN JR Trnscrd Date/Time/By: (1737) : By: Jana Orig Print D/T: S: 04/09/2019 (6608) PAGE 1 Signed Report [id number] 16:21:00* Test Item Value Reference Range Comments GLUBED (test code=GLUBED) 140 mg/dL 74-106 Performed by certified packer operator automatic at [facility]Notified Nurse~ [id number] 12:45:00* Test Item Value Reference Range Comments GLUBED (test code=GLUBED) 169 mg/dL 74-106 Performed by certified packer operator automatic at [facility] BASIC METABOLIC [id number] 11:07:00* Test Item Value Reference Range Comments SODIUM (test code=NA) 142 mmol/L 136-145 POTASSIUM (test code=K) 3.8 mmol/L 3.5-5.1 CHLORIDE (test code=CL) 113.0 mmol/L 98-107 CARBON DIOXIDE (test code=CO2) 22.0 mmol/L 21-32 ANION GAP (test code=GAP) 10.8 10-20 GLUCOSE (test code=GLU) 154 mg/dL 74-106 BLOOD UREA NITROGEN (test code=BUN) 37 mg/dL 7-18 GLOMERULAR FILTRATION RATE (test code=GFR) 47 mL/min >=60 Estimated GFR by using Modified MDRD formula.Chronic kidney disease is defined as either kidney damageor GFR <60 mL/min/1.73 m2 for >3 months. CREATININE (test code=CREAT) 1.50 mg/dL 0.7-1.3 BUN/CREATININE RATIO (test code=BUN/CREA) 24.7 10-20 CALCIUM (test code=CA) 7.8 mg/dL 8.5-10.1 BASIC METABOLIC [id number] 10:59:00* Test Item Value Reference Range Comments SODIUM (test code=NA) 142 mmol/L 136-145 POTASSIUM (test code=K) 3.8 mmol/L 3.5-5.1 CHLORIDE (test code=CL) 113.0 mmol/L 98-107 CARBON DIOXIDE (test code=CO2) mmol/L 21-32 ANION GAP (test code=GAP) 10-20 GLUCOSE (test code=GLU) mg/dL 74-106 BLOOD UREA NITROGEN (test code=BUN) mg/dL 7-18 GLOMERULAR FILTRATION RATE (test code=GFR) mL/min >=60 CREATININE (test code=CREAT) mg/dL 0.7-1.3 BUN/CREATININE RATIO (test code=BUN/CREA) 10-20 CALCIUM (test code=CA) mg/dL 8.5-10.1 CBC W/AUTO [id number] 10:42:00* Test Item Value Reference Range Comments WHITE BLOOD CELL (test code=WBC) 8.0 K/mm3 4.5-12.5 RED BLOOD CELL (test code=RBC) 3.20 mill/mm3 4.0-5.8 HEMOGLOBIN (test code=HGB) 9.5 gram/dL 13.0-17.5 HEMATOCRIT (test code=HCT) 29.8 % 42.0-52.0 MEAN CELL VOLUME (test code=MCV) 93.1 fL 80-98 MEAN CELL HGB (test code=MCH) 29.7 picogram 27.0-33.0 MEAN CELL HGB CONCETRATION (test code=MCHC) 31.9 gram/dL 33.0-36.0 RED CELL DISTRIBUTION WIDTH (test code=RDW) 15.0 % 11.6-16.2 RED CELL DISTRIBUTION WIDTH SD (test code=RDW-SD) 51.0 fL 37.0-51.0 PLATELET COUNT (test code=PLT) 129 K/mm3 150-450 MEAN PLATELET VOLUME (test code=MPV) 8.7 fL 6.7-11.0 NEUTROPHIL % (test code=NT%) 75.2 % 39.0-69.0 IMMATURE GRANULOCYTE % (test code=IG%) 0.8 % 0.0-5.0 LYMPHOCYTE % (test code=LY%) 10.2 % 25.0-55.0 MONOCYTE % (test code=MO%) 7.3 % 0.0-10.0 EOSINOPHIL % (test code=EO%) 6.0 % 0.0-5.0 BASOPHIL % (test code=BA%) 0.5 % 0.0-1.0 NUCLEATED RBC % (test code=NRBC%) 0.0 % 0-0 NEUTROPHIL # (test code=NT#) 5.98 K/mm3 1.8-7.7 IMMATURE GRANULOCYTE # (test code=IG#) 0.06 x10 3/uL 0-0.03 LYMPHOCYTE # (test code=LY#) 0.81 K/mm3 1.0-5.0 MONOCYTE # (test code=MO#) 0.58 K/mm3 0-0.8 EOSINOPHIL # (test code=EO#) 0.48 K/mm3 0.0-0.5 BASOPHIL # (test code=BA#) 0.04 K/mm3 0.0-0.2 NUCLEATED RBC # (test code=NRBC#) 0.00 K/mm3 0.0-0.1 MANUAL DIFF REQUIRED (test code=MDIFF) NO [id number] 08:29:00* Test Item Value Reference Range Comments GLUBED (test code=GLUBED) 93 mg/dL 74-106 Performed by certified packer operator automatic at [facility]Notified Nurse~ [id number] 20:50:00* Test Item Value Reference Range Comments GLUBED (test code=GLUBED) 177 mg/dL 74-106 Performed by certified packer operator automatic at [facility] [id number] 16:17:00* Test Item Value Reference Range Comments GLUBED (test code=GLUBED) 120 mg/dL 74-106 Performed by certified packer operator automatic at [facility] [id number] 12:32:00* Test Item Value Reference Range Comments GLUBED (test code=GLUBED) 197 mg/dL 74-106 Performed by certified packer operator automatic at [facility] [id number] 07:57:00* Test Item Value Reference Range Comments GLUBED (test code=GLUBED) 81 mg/dL 74-106 Performed by certified packer operator automatic at [facility] BASIC METABOLIC [id number] 06:16:00* Test Item Value Reference Range Comments SODIUM (test code=NA) 141 mmol/L 136-145 POTASSIUM (test code=K) 4.0 mmol/L 3.5-5.1 CHLORIDE (test code=CL) 113.0 mmol/L 98-107 CARBON DIOXIDE (test code=CO2) 19.0 mmol/L 21-32 ANION GAP (test code=GAP) 13.0 10-20 GLUCOSE (test code=GLU) 70 mg/dL 74-106 BLOOD UREA NITROGEN (test code=BUN) 53 mg/dL 7-18 GLOMERULAR FILTRATION RATE (test code=GFR) 36 mL/min >=60 Estimated GFR by using Modified MDRD formula.Chronic kidney disease is defined as either kidney damageor GFR <60 mL/min/1.73 m2 for >3 months. CREATININE (test code=CREAT) 1.90 mg/dL 0.7-1.3 BUN/CREATININE RATIO (test code=BUN/CREA) 27.9 10-20 CALCIUM (test code=CA) 7.8 mg/dL 8.5-10.1 DILANTIN (PHENYTOIN)2019-04-07 06:16:00* Test Item Value Reference Range Comments DILANTIN (PHENYTOIN) (test code=DIL) 12.8 ug/mL 10.0-20.0 BASIC METABOLIC [id number] 06:09:00* Test Item Value Reference Range Comments SODIUM (test code=NA) 141 mmol/L 136-145 POTASSIUM (test code=K) 4.0 mmol/L 3.5-5.1 CHLORIDE (test code=CL) 113.0 mmol/L 98-107 CARBON DIOXIDE (test code=CO2) mmol/L 21-32 ANION GAP (test code=GAP) 10-20 GLUCOSE (test code=GLU) mg/dL 74-106 BLOOD UREA NITROGEN (test code=BUN) mg/dL 7-18 GLOMERULAR FILTRATION RATE (test code=GFR) mL/min >=60 CREATININE (test code=CREAT) mg/dL 0.7-1.3 BUN/CREATININE RATIO (test code=BUN/CREA) 10-20 CALCIUM (test code=CA) mg/dL 8.5-10.1 CBC W/AUTO [id number] 05:56:00* Test Item Value Reference Range Comments WHITE BLOOD CELL (test code=WBC) 9.7 K/mm3 4.5-12.5 RED BLOOD CELL (test code=RBC) 3.29 mill/mm3 4.0-5.8 HEMOGLOBIN (test code=HGB) 9.8 gram/dL 13.0-17.5 HEMATOCRIT (test code=HCT) 31.6 % 42.0-52.0 MEAN CELL VOLUME (test code=MCV) 96.0 fL 80-98 MEAN CELL HGB (test code=MCH) 29.8 picogram 27.0-33.0 MEAN CELL HGB CONCETRATION (test code=MCHC) 31.0 gram/dL 33.0-36.0 RED CELL DISTRIBUTION WIDTH (test code=RDW) 15.3 % 11.6-16.2 RED CELL DISTRIBUTION WIDTH SD (test code=RDW-SD) 53.2 fL 37.0-51.0 PLATELET COUNT (test code=PLT) 115 K/mm3 150-450 MEAN PLATELET VOLUME (test code=MPV) 9.1 fL 6.7-11.0 NEUTROPHIL % (test code=NT%) 74.8 % 39.0-69.0 IMMATURE GRANULOCYTE % (test code=IG%) 0.7 % 0.0-5.0 LYMPHOCYTE % (test code=LY%) 9.3 % 25.0-55.0 MONOCYTE % (test code=MO%) 11.2 % 0.0-10.0 EOSINOPHIL % (test code=EO%) 3.7 % 0.0-5.0 BASOPHIL % (test code=BA%) 0.3 % 0.0-1.0 NUCLEATED RBC % (test code=NRBC%) 0.0 % 0-0 NEUTROPHIL # (test code=NT#) 7.27 K/mm3 1.8-7.7 IMMATURE GRANULOCYTE # (test code=IG#) 0.07 x10 3/uL 0-0.03 LYMPHOCYTE # (test code=LY#) 0.90 K/mm3 1.0-5.0 MONOCYTE # (test code=MO#) 1.09 K/mm3 0-0.8 EOSINOPHIL # (test code=EO#) 0.36 K/mm3 0.0-0.5 BASOPHIL # (test code=BA#) 0.03 K/mm3 0.0-0.2 NUCLEATED RBC # (test code=NRBC#) 0.00 K/mm3 0.0-0.1 [id number] 20:11:00* Test Item Value Reference Range Comments GLUBED (test code=GLUBED) 128 mg/dL 74-106 Performed by certified packer operator automatic at [facility] [id number] 16:11:00* Test Item Value Reference Range Comments GLUBED (test code=GLUBED) 110 mg/dL 74-106 Performed by certified packer operator automatic at [facility] [id number] 12:32:00* Test Item Value Reference Range Comments GLUBED (test code=GLUBED) 103 mg/dL 74-106 Performed by certified packer operator automatic at [facility]Notified Nurse~ [id number] 10:42:00* Test Item Value Reference Range Comments TROPONIN-I (test code=TROPI) 0.027 ng/mL 0-0.045 COMMENTS TO ELECTRIC VEHICLE ELECTRICIAN: COLLECT 3 HOURS AFTER PREVIOUS [id number] 08:25:00* Test Item Value Reference Range Comments GLUBED (test code=GLUBED) 73 mg/dL 74-106 Performed by certified packer operator automatic at [facility] [id number] 06:04:00* Test Item Value Reference Range Comments TROPONIN-I (test code=TROPI) <0.015 ng/mL 0-0.045 COMMENTS TO ELECTRIC VEHICLE ELECTRICIAN: COLLECT 3 HOURS AFTER PREVIOUS [id number] 04:21:00* Test Item Value Reference Range Comments GLUBED (test code=GLUBED) 113 mg/dL 74-106 Performed by certified packer operator automatic at [facility] [id number] 01:41:00* Test Item Value Reference Range Comments GLUBED (test code=GLUBED) 54 mg/dL 74-106 Performed by certified packer operator automatic at [facility] - CT HEAD/BRAIN W/O [id number] 23:30:00 Name: REBEL ROD [facility] : 1950 Age/S: 68 / M [address] [facility] Unit #: [id number] Loc: [place], [place] [address] Phys: Sahra Swan MD Acct: [id number] Dis Date: Status: REG ER PHONE #: [phone] Exam Date: 04/05/20192321 FAX #: [phone] Reason: ams EXAMS: CPT CODE: [id number] CT HEAD/BRAIN W/O CONT 47846 EXAM: - CT HEAD/BRAIN W/O CONT HISTORY: AMS. TECHNIQUE: Axial tomograms through the brain were obtained without intravenous contrast. This exam was performed according to our departmental dose-optimization program, which includes automated exposure control, adjustment of the mA and/or kV according to patient size and/or use of iterative reconstruction technique. COMPARISON: 10/12/2018. FINDINGS: There is no intracranial hemorrhage, mass, or mass effect. The ventricular system and sulci are age-appropriate. There is no evidence of acute infarction. There is no significant change compared to prior exam. Evaluation is limited due to motion artifact. The osseous structures and orbits, show no significant abnormalities. Chronic mucosal changes in right sphenoidal sinus. The soft tissues are unremarkable. IMPRESSION: No definite evidence of acute intracranial hemorrhage. Limited exam. at 2330 Reported and signed by: Connor Mata MD CC: Sahra Swan MD Zac hnologist:Norman Santos RT(R)(CT) CTDI: DLP: Trnscb Date/T cesar: 04/05/2019 (4620) [email or web address] Orig Print D/T: S: 04/05 (8869) PAGE 1 Signed Report PROCALCITONIN (PCT)2019-04-05 22:03:00* Test Item Value Reference Range Comments PROCALCITONIN (PCT) (test code=PROCAL) 2.10 ng/ml Concentration Interpretation (ng/mL) <0.51 Sepsis is not likely. Local bacterial infection is possible. (LOW RISK for progression to Sepsis) 0.51 - 2.00 Sepsis is possible, but other conditions are known to elevate PCT as well. (MODERATE RISK for progression to Sepsis) > 2.00 Sepsis is likely, unless other causes are known. (HIGH RISK for progression to Severe Sepsis or Septic Shock) 10.00 High likelihood of Severe Sepsis or Septic or higher Shock. *Increased PCT levels may not always be related to systemic bacterial infection.*Low PCT levels do not automatically exclude the presence of bacterial infection.*All results should be interpreted taking into account the patients history. - CT ABD PELVIS W/O [id number] 21:26:00 Name: REBEL ROD [facility] : 1950 Age/S: 68 / M [address] Unit #: [id number] Loc: [place] [address] Phys: Sahra Swan MD Acct: [id number] Dis Date: Status: REG ER PHONE #: [phone] Exam Date: 04/05/20192111 FAX #: [phone] Reason: vomiting, blood in urine EXAMS: CPT CODE: [id number] CT ABD PELVIS W/O CONT 83171 HISTORY: Vomiting blood. COMPARISON: CT scan from November 30, 2018 CT of abdomen and pelvis: Stone protocol. Automated exposure control. The lung bases demonstrating subsegmental atelectasis on the right side. The liver is extensively obscured by beam hardening artifact from p atient's overlying arms and from the pedicular screws in the dorsal spine. No discrete mass is visible. The liver is mildly enlarged. Gallbladder is not visible. Splenomegaly at 22 cm in length. Large varices. The stomach is distended incompletely however limited in evaluation. Per igastric varices. Atrophied pancreas. Adrenals are normal. Kidneys are free from hydronephrosis. Calyceal stones in both interpolar region measuring 3 to 4 mm and cortical calcification on the left with horseshoe kidneys. Bilateral moderate hydroureter without obvi ous obstructing stones. This could represent outlet obstruction. Extrare nal pelvis on the right side. No pathologic adenopathy. Unremarka ble unopacified vasculature. No bowel obstruction or colitis or di verticulitis or enteritis. Constipation. CT PELVIS: Appendix is not visible but no inflammatory changes. Pelvic bowel loops are unobstructed. Prostate measured 4.8 cm. The urinary rmairo dder distended incompletely with circumferential wall thickening. The non dependent wall measured up to 1.5 cm. Diggs catheter noted within it. Th e wall thickness is greater than normal for underdistention with perivesic ular inflammation. These findings may suggest cystitis. Hydroureter bilaterally without obstructing stones. Direct visualization. No free fluid or free air. No pelvic pathologic adenopathy. Subcutaneous tissues demonstrating mild bilateral gynecomastia. No PAGE 1 Signed Report (CONTINUED) Name: REBEL ROD [facility] : 1950 Age/S: 68 / M [address] Unit #: [id number] Loc: [place] [address] Phys: Sahra Swan MD Acct: [id number] Dis Date: Status: REG ER PHONE #: [phone] Exam Date: 04/05/20192111 FAX #: [phone] Reason: vomiting, blood in urine EXAMS: CPT CODE: [id number] CT ABD PELVIS W/O CONT 73759 <Continued> lytic or blastic lesions are noted within the bony skeleton. DJD. Pedicular screws through the entire lumbar and the visualized lower dorsal spine. IMPRESSION: No hydronephrosis. Multiple nonobstructing 3 to 4 mm bilateral calyceal stones as well as cortical calcification on the left. This is are unchanged from previous exam. Horseshoe kidneys. Moderate bilateral hydroureter without obvious obstructing stones. Direct visualization recommended. Decompressed thickened urinary bladder wall which is greater than normal for underdistention at 1.5 cm with. Perivesicular inflammation may suggest cystitis. Direct visualization and urinalysis. Appendix is not visible but no inflammation. No bowel obstruction or colitis or diverticulitis or enteritis. No free fluid or free air. Hepatosplenomegaly with spleen measuring 22 cm in length. Perigastric and periesophageal varices suggesting portal hypertension. No ascites. at 2126 Reported and signed by: Pierre Lobato M.D. CC: Sahra Swan MD Technologist:Norman Santos, RT(R)(CT); ... CTDI: DLP: Trnscb Date/Time: 04/05/2019 (2125) [email or web address] Orig Print D/T: S: 04/05/2019 (2128) PAGE 2 Signed Report - XR CHEST 1 [id number] 20:59:00 FAX: Sahra Toscano [phone] [place]: [address]: REG Name: REBEL TRONCOSO [facility] : [birth year] Age/S: 68/M [address] [facility] Unit #: [id number] Loc: [place] [address] Phys: Sahra Swan MD Acct: [id number] Dis Date: Status: REG ER PHONE #: [phone] Exam Date: 04/05/20192029 FAX #: [phone] Reason: CODE SEPSIS EXAMS: CPT CODE: [id number] XR CHEST 1 V 89332 HISTORY: Sepsis. COM PARISON: November 24, 2018. Suboptimal inspiration with dependent changes. Right lower lobe subsegmental atelectasis and small effusion. N o infiltrates or congestion. Cardiomegaly. Pedicular screws in the lower dorsal and upper lumbar spine. IMPRESSION: Right basal subsegmental atelectasis and small effusion. Electro nically Signed by Ivan Lobato on 04/05/2019 at 2058 Reported and signed by: Pierre Lobato M.D. CC: Sahra Squires MD Technologist: AJAY COREA RT(R) Trnscrd Date/Time/By: 04/05/2019 (2058) : By: [email or web address] Orig Print D/T: S: 04/05/2019 (2101) PAGE 1 Signed Report BASIC METABOLIC [id number] 20:57:00* Test Item Value Reference Range Comments SODIUM (test code=NA) 140 mmol/L 136-145 POTASSIUM (test code=K) 4.4 mmol/L 3.5-5.1 CHLORIDE (test code=CL) 113.0 mmol/L 98-107 CARBON DIOXIDE (test code=CO2) 20.0 mmol/L 21-32 ANION GAP (test code=GAP) 11.4 10-20 GLUCOSE (test code=GLU) 95 mg/dL 74-106 BLOOD UREA NITROGEN (test code=BUN) 63 mg/dL 7-18 GLOMERULAR FILTRATION RATE (test code=GFR) 22 mL/min >=60 Estimated GFR by using Modified MDRD formula.Chronic kidney disease is defined as either kidney damageor GFR <60 mL/min/1.73 m2 for >3 months. CREATININE (test code=CREAT) 2.90 mg/dL 0.7-1.3 BUN/CREATININE RATIO (test code=BUN/CREA) 21.7 10-20 CALCIUM (test code=CA) 8.0 mg/dL 8.5-10.1 HEPATIC FUNCTION [id number] 20:57:00* Test Item Value Reference Range Comments TOTAL PROTEIN (test code=PROT) 7.9 gram/dL 6.4-8.2 ALBUMIN (test code=ALB) 1.9 g/dL 3.4-5.0 GLOBULIN (test code=GLOB) 6.0 gram/dL 2.7-4.2 ALBUMIN/GLOBULIN RATIO (test code=A/G) 0.3 0.75-1.50 BILIRUBIN TOTAL (test code=BILT) 0.50 mg/dL 0.0-1.0 BILIRUBIN DIRECT (test code=BILD) 0.32 mg/dL 0.0-0.20 SGOT/AST (test code=AST) 33 IUnit/L 15-37 SGPT/ALT (test code=ALT) 18 IUnit/L 12-78 ALKALINE PHOSPHATASE TOTAL (test code=ALKP) 173 IUnit/L 45-117 Note change in reference range due to change in reagent. [id number] 20:57:00* Test Item Value Reference Range Comments LIPASE (test code=LIP) 112 U/L 73.0-393.0 [id number] 20:57:00* Test Item Value Reference Range Comments TROPONIN-I (test code=TROPI) <0.015 ng/mL 0-0.045 LACTIC [id number] 20:57:00* Test Item Value Reference Range Comments LACTIC ACID (test code=LACT) 1.0 mmol/L 0.4-1.9 URINALYSIS [id number] 20:50:00* Test Item Value Reference Range Comments UA COLOR (test code=COLU) RED YELLOW UA APPEARANCE (test code=APPU) BLOODY CLEAR UA GLUCOSE DIPSTICK (test code=DGLUU) NEGATIVE mg/dL NEGATIVE UA BILIRUBIN DIPSTICK (test code=BILU) 2+ (Mod 2.0-4.0) NEGATIVE UA KETONE DIPSTICK (test code=KETU) TRACE mg/dL NEGATIVE UA SPECIFIC GRAVITY (test code=SGU) 1.010 1.001-1.035 UA BLOOD DIPSTICK (test code=KIMBERLEE) 3+ (Large) NEGATIVE UA PH DIPSTICK (test code=RENEE) 6.5 5.0-8.0 UA PROTEIN DIPSTICK (test code=PROU) >=300 (3+) mg/dL Neg-15 UA UROBILINIOGEN DIPSTICK (test code=URO) 1 mg/dL (1+) mg/dL 0.0-0.2 UA NITRITE DIPSTICK (test code=PAN) POSITIVE NEGATIVE UA LEUKOCYTE ESTERASE W REFLEX (test code=LEUUR) 3+ NEGATIVE UA WBC (test code=WBCU) 20-30 per HPF 0-5 UA RBC (test code=RBCU) TNTC per HPF 0-5 UA EPITHELIAL CELLS (test code=EPIU) Few (2-5/hpf) per HPF Few UA BACTERIA (test code=BACU) MANY per HPF NONE Urine Source? Clean CatchBASIC METABOLIC [id number] 20:49:00* Test Item Value Reference Range Comments SODIUM (test code=NA) 140 mmol/L 136-145 POTASSIUM (test code=K) 4.4 mmol/L 3.5-5.1 CHLORIDE (test code=CL) 113.0 mmol/L 98-107 CARBON DIOXIDE (test code=CO2) mmol/L 21-32 ANION GAP (test code=GAP) 10-20 GLUCOSE (test code=GLU) mg/dL 74-106 BLOOD UREA NITROGEN (test code=BUN) mg/dL 7-18 GLOMERULAR FILTRATION RATE (test code=GFR) mL/min >=60 CREATININE (test code=CREAT) mg/dL 0.7-1.3 BUN/CREATININE RATIO (test code=BUN/CREA) 10-20 CALCIUM (test code=CA) mg/dL 8.5-10.1 HEPATIC FUNCTION [id number] 20:49:00* Test Item Value Reference Range Comments TOTAL PROTEIN (test code=PROT) gram/dL 6.4-8.2 ALBUMIN (test code=ALB) g/dL 3.4-5.0 GLOBULIN (test code=GLOB) gram/dL 2.7-4.2 ALBUMIN/GLOBULIN RATIO (test code=A/G) 0.75-1.50 BILIRUBIN TOTAL (test code=BILT) mg/dL 0.0-1.0 BILIRUBIN DIRECT (test code=BILD) mg/dL 0.0-0.20 SGOT/AST (test code=AST) IUnit/L 15-37 SGPT/ALT (test code=ALT) IUnit/L 12-78 ALKALINE PHOSPHATASE TOTAL (test code=ALKP) IUnit/L 45-117 [id number] 20:49:00* Test Item Value Reference Range Comments LIPASE (test code=LIP) U/L 73.0-393.0 [id number] 20:49:00* Test Item Value Reference Range Comments TROPONIN-I (test code=TROPI) ng/mL 0-0.045 URINALYSIS [id number] 20:38:00* Test Item Value Reference Range Comments UA COLOR (test code=COLU) RED YELLOW UA APPEARANCE (test code=APPU) BLOODY CLEAR UA GLUCOSE DIPSTICK (test code=DGLUU) NEGATIVE mg/dL NEGATIVE UA BILIRUBIN DIPSTICK (test code=BILU) 2+ (Mod 2.0-4.0) NEGATIVE UA KETONE DIPSTICK (test code=KETU) TRACE mg/dL NEGATIVE UA SPECIFIC GRAVITY (test code=SGU) 1.010 1.001-1.035 UA BLOOD DIPSTICK (test code=KIMBERLEE) 3+ (Large) NEGATIVE UA PH DIPSTICK (test code=RENEE) 6.5 5.0-8.0 UA PROTEIN DIPSTICK (test code=PROU) >=300 (3+) mg/dL Neg-15 UA UROBILINIOGEN DIPSTICK (test code=URO) 1 mg/dL (1+) mg/dL 0.0-0.2 UA NITRITE DIPSTICK (test code=PAN) POSITIVE NEGATIVE UA LEUKOCYTE ESTERASE W REFLEX (test code=LEUUR) 3+ NEGATIVE UA WBC (test code=WBCU) per HPF 0-5 UA RBC (test code=RBCU) per HPF 0-5 UA EPITHELIAL CELLS (test code=EPIU) per HPF Few UA BACTERIA (test code=BACU) per HPF NONE Urine Source? Clean CatchCBC W/AUTO [id number] 20:37:00* Test Item Value Reference Range Comments WHITE BLOOD CELL (test code=WBC) 14.6 K/mm3 4.5-12.5 RED BLOOD CELL (test code=RBC) 3.29 mill/mm3 4.0-5.8 HEMOGLOBIN (test code=HGB) 9.9 gram/dL 13.0-17.5 HEMATOCRIT (test code=HCT) 31.3 % 42.0-52.0 MEAN CELL VOLUME (test code=MCV) 95.1 fL 80-98 MEAN CELL HGB (test code=MCH) 30.1 picogram 27.0-33.0 MEAN CELL HGB CONCETRATION (test code=MCHC) 31.6 gram/dL 33.0-36.0 RED CELL DISTRIBUTION WIDTH (test code=RDW) 15.2 % 11.6-16.2 RED CELL DISTRIBUTION WIDTH SD (test code=RDW-SD) 53.3 fL 37.0-51.0 PLATELET COUNT (test code=PLT) 106 K/mm3 150-450 MEAN PLATELET VOLUME (test code=MPV) 8.7 fL 6.7-11.0 NEUTROPHIL % (test code=NT%) 82.9 % 39.0-69.0 IMMATURE GRANULOCYTE % (test code=IG%) 0.8 % 0.0-5.0 LYMPHOCYTE % (test code=LY%) 6.9 % 25.0-55.0 MONOCYTE % (test code=MO%) 9.0 % 0.0-10.0 EOSINOPHIL % (test code=EO%) 0.1 % 0.0-5.0 BASOPHIL % (test code=BA%) 0.3 % 0.0-1.0 NUCLEATED RBC % (test code=NRBC%) 0.0 % 0-0 NEUTROPHIL # (test code=NT#) 12.08 K/mm3 1.8-7.7 IMMATURE GRANULOCYTE # (test code=IG#) 0.11 x10 3/uL 0-0.03 LYMPHOCYTE # (test code=LY#) 1.00 K/mm3 1.0-5.0 MONOCYTE # (test code=MO#) 1.31 K/mm3 0-0.8 EOSINOPHIL # (test code=EO#) 0.02 K/mm3 0.0-0.5 BASOPHIL # (test code=BA#) 0.04 K/mm3 0.0-0.2 NUCLEATED RBC # (test code=NRBC#) 0.00 K/mm3 0.0-0.1 POC LACTIC [id number] 20:26:00* Test Item Value Reference Range Comments POC LACTIC ACID (test code=POCLAC) 0.78 MMOL/L 0.4-2.2 BASIC METABOLIC [id number] 19:01:00* Test Item Value Reference Range Comments SODIUM (test code=NA) 139 mEq/L 134-147 POTASSIUM (test code=K) 4.6 mEq/L 3.4-5.0 CHLORIDE (test code=CL) 109 mEq/L 100-108 CARBON DIOXIDE (test code=CO2) 25 mEq/L 21-33 ANION GAP (test code=GAP) 10 0-20 GLUCOSE (test code=GLU) 134 mg/dL 70-110 BLOOD UREA NITROGEN (test code=BUN) 32 mg/dL 7-18 GLOMERULAR FILTRATION RATE (test code=GFR) 74.8 80-90 Units of measure=ml/min/1.73 m2 CREATININE (test code=CREAT) 1.0 mg/dL 0.6-1.3 CALCIUM (test code=CA) 8.2 mg/dL 8.0-10.5 Specimen received unspun, results may be affected. [facility] PHONE# for CRITICALS -[phone] or [phone] PHONE , FAX# [facility] W/AUTO [id number] 18:49:00* Test Item Value Reference Range Comments WHITE BLOOD CELL (test code=WBC) 12.75 x10 3/uL 4.5-11.0 RED BLOOD CELL (test code=RBC) 3.25 x10 6/uL 4.00-5.60 HEMOGLOBIN (test code=HGB) 10.1 g/dL 12.5-16.9 HEMATOCRIT (test code=HCT) 31.5 % 37.5-50.7 MEAN CELL VOLUME (test code=MCV) 96.9 fL 81.0-99.0 MEAN CELL HGB (test code=MCH) 31.1 pg 27.0-33.0 MEAN CELL HGB CONCETRATION (test code=MCHC) 32.1 g/dL 33.0-37.0 RED CELL DISTRIBUTION WIDTH CV (test code=RDW) 14.1 % 11.5-14.5 RED CELL DISTRIBUTION WIDTH SD (test code=RDW-SD) 50.7 fL 37.0-54.0 PLATELET COUNT (test code=PLT) 159 x10 3/uL 150-400 MEAN PLATELET VOLUME (test code=MPV) 8.7 fL 7.0-9.0 NEUTROPHIL % (test code=NT%) 75.0 % 56.0-77.0 IMMATURE GRANULOCYTE % (test code=IG%) 0.4 % 0.0-2.0 LYMPHOCYTE % (test code=LY%) 11.0 % 14.0-32.0 MONOCYTE % (test code=MO%) 9.6 % 4.8-9.0 EOSINOPHIL % (test code=EO%) 3.3 % 0.3-3.7 BASOPHIL % (test code=BA%) 0.7 % 0.0-2.0 NUCLEATED RBC % (test code=NRBC%) 0.0 % 0-0 NEUTROPHIL # (test code=NT#) 9.57 x10 3/uL 2.0-7.6 IMMATURE GRANULOCYTE # (test code=IG#) 0.05 x10 3/uL 0.00-0.03 LYMPHOCYTE # (test code=LY#) 1.40 x10 3/uL 1.0-3.8 MONOCYTE # (test code=MO#) 1.22 x10 3/uL 0.1-0.8 EOSINOPHIL # (test code=EO#) 0.42 x10 3/uL 0.0-0.2 BASOPHIL # (test code=BA#) 0.09 x10 3/uL 0.0-0.2 NUCLEATED RBC # (test code=NRBC#) 0.00 x10 3/uL 0.0-0.1 MANUAL DIFF REQUIRED (test code=MDIFF) NO [facility] PHONE# for [phone] or [phone] PHONE , FAX# BONE SCAN, 3 [id number] 22:53:00 [place] [address] Patient Name: REBEL ROD MR #: [id number] : 1950 Age/Sex: 68/M Req #: [id number] Adm Physician: Ordered by: MICHELLE BOSTON MD Report #: [id number] Location: [place] Room/Bed: Procedure: NM/BONE SCAN, 3 PHASE Exam Date: 07/04/18 Exam Time: [address] ATUS: Signed Bone Scan, three-phase Reason for exam: 68 M with parapl egia, dementia. Irregular cortex on the posterior aspect of the left femur pro ximally. Radiopharmaceutical: Tc-99m MDP 25 mCi Comparison: CT left f emur 06/26/2018 Following intravenous administration of the radiopharmaceutic al, dynamic flow and immediate blood pool images the proximal portion of the l eft thigh and lower pelvis followed by 4-hour delayed spot images were obtaine d. The patient was difficult to position given paraplegia and dementia. F low and blood pool images show diffusely normal distribution of tracer activit y to the thigh without focal abnormalities. The delayed spot images show no rmal distribution of tracer activity throughout the femurs bilaterally. No ab normal focal accumulation of tracer is seen in the left femur. Distribution o f tracer activity is also unremarkable throughout the pelvis. Degenerative ch anges are present in the hips. Impression: No acute osteoblastic proc ess is present in the left femur; no scan evidence of bone metastasis or infec tion. No acute osteoblastic processes are seen in the pelvis, hips or femurs. Signed by: Dr. Jamia Jeffrey M.D. on 2018 11:06 PM Dictated By: JAMIA JEFFREY MD 05 Transcribed By: EVELYN on 07/04/182305 COPY TO: MICHELLE BOSTON MD (NS) CT ABDOMEN/PELVIS [id number] 15:21:00 [place] [address] Patient Name: REBEL ROD MR #: [id number] : 1950 Age/Sex: 67/M Req #: [id number] Adm Physician: Ordered by: MICHELLE BOSTON MD Report #: [id number] Location: CT Room/Bed: Procedure: [id number] CT/CT ABDOMEN/PELVIS WO Exam Date: 06/26/18 Exam Time: 1340 REPORT STATUS: Signed EXAM: CT Abdomen and Pelvis WITHOUT contrast INDICATION: COMPARISON: None. TECHNIQUE: Abdomen and pelvis were scanned u tilizing a multidetector helical scanner from the lung base to the pubic symph ysis without administration of IV contrast. Absence of intravenous contrast de creases sensitivity for detection of focal lesions and vascular pathology. Cor onal and sagittal reformations were obtained. Routine protocol was performed. IV CONTRAST: None ORAL CONTRAST: Water COMPLICAT IONS: None RADIATION DOSE: Total DLP: 1421.92 mGy*cm Estimate d effective dose: (DLP x 0.015 x size factor) mSv CTDIvol has been review ed. It is below the limits set by the Radiation Protocol Committee (RPC). FINDINGS: LINES and TUBES: None. LOWER THORAX: Right base opacificat ion with air bronchograms. Elevated right hemidiaphragm. HEPATOBILIARY: H epatomegaly, measuring 20.1 cm. Unenhanced liver is unremarkable. No biliary ductal dilation. GALLBLADDER: No radio-opaque stones or sludge. No wall t hickening. SPLEEN: Splenomegaly, measuring 17.3 cm. PANCREAS: Fatty i nvolution of the pancreas. No focal masses or ductal dilatation. ADRENA LS: No adrenal nodules KIDNEYS/URETERS: Horseshoe kidney. No hydroneph rosis. Limited for evaluation of renal parenchyma without intravenous contrast . 1.3 and 0.8 cm left inferior pole calculi. 1.4 cm right inferior pole calcu tatiana. 0.7 cm right superior pole calculus. Minimal bilateral hydroureter and pe riureteral fat stranding, left slightly more than right. GI TRACT: No abn ormal distention, wall thickening, or evidence of bowel obstruction. All of t he small bowel loops are in the right abdomen. Appendix is not visualized. PELVIC ORGANS/BLADDER: Mild bladder wall thickening. LYMPH NODES: No lymp hadenopathy. Nonspecific subcentimeter retroperitoneal lymph nodes. VESSE LS: Unremarkable. PERITONEUM / RETROPERITONEUM: No free air or fluid. BONES: Advanced degenerative changes of the bilateral hip joints. Thoracolumbar posterior fusion. Multilevel degenerative changes of the spine. SOFT TISS UES: Unremarkable. IMPRESSION: 1. Limited study without int ravenous contrast. 2. Horseshoe kidney. Bilateral nonobstructive renal calcul i. No evidence of obstructive urolithiasis. There is minimal bilateral hydrour eter and periureteral fat stranding as well as mild bladder wall thickening. U rinary tract infection cannot be excluded. 3. Displacement of the small bow el loops to the right abdomen, could be due to mesenteric herniation through a peritoneal defect. No evidence of bowel obstruction. 4. No definite eviden ce of acute inflammatory process in the abdomen/pelvis. 5. Hepatosplenomegaly . 6. Elevated right hemidiaphragm with right base consolidation, likely ate lectasis. Signed by: Dr. Brittani Mejai MD on 06/26/2018 3:39 PM D ictated By: BRITTANI MEJIA MD 1539 COPY TO: JESUS BOSTON MD (NS) CT FEMUR LEFT [id number] 15:18:00 [place] [address] Patient Name: REBEL ROD MR #: [id number] : 1950 Age/Sex: 68/M Req #: [id number] Adm Physician: Ordered by: MICHELLE BOSTON MD Report #: [id number] Location: CT Room/Bed: Procedure: [id number] CT/CT FEMUR LEFT WO Exam Date: 06/26/18 Exam Time: 1340 REPORT STAT US: Signed ADDENDUM #1 The following addendum is be ing made to comply with coding criteria, and does not substantially change the findings or recommendations of the original report All CT scans are perfor med using radiation dose reduction techniques. Technical factors are evaluated and adjusted to ensure appropriate moderation of exposure. Automated dose man agement technology is applied to adjust the radiation dose to minimize exposur e while achieving a diagnostic-quality image. Signed by: Dr. Antoni Ramos M.D. on 07/12/2018 1:16 PM ORIGINAL REPORT Exam: Left femurCT without contrast. History: Abnormal x-ray. Hypothyroidism. Anemia. Decreased range of motion. Rash on thigh Comparison:None Technique: Utilizing a 64-slice multidetector CT, axial imaging was performed through the left femur without IV contrast. Multiplanar reformation was performed. Findings: Diffuse osteopenia. No acute fracture, subluxation or avascular n ecrosis. Moderate/severe degenerative arthrosis in the left hip joint with joint space narrowing, subchondral sclerosis, subchondral cystic change and pe ripheral osteophytosis with fragmentation of the superior lateral acetabulum. Left hip joint effusion likely reactive. Bony protuberance off the left h ip greater trochanter likely due to chronic trochanteric bursitis. Ill-de fined bony protuberance which may be partially cortically based with associate d central lucency and thinning of the cortex along the posterior proximal shaf t of the femur best seen on sagittal reformatted image 92 through 100 and axia l image 48 through 77. No radiopaque foreign body. Diffuse muscle atro phy. Impression: Ill-defined bony protuberance which may be partially cor tically based with associated central lucency and thinning of the cortex along the posterior proximal shaft of the femur could be due to a bony exostosis. A metastatic focus is a possibility. Infection is thought to be unlikely. Bone scan is recommended for further evaluation. Signed by: Dr. Jassi Ramos M.D. on 06/26/2018 3:33 PM Dictated By: ANTONI RAMOS MD, MD El ectronically Signed By: ANTONI RAMOS MD, MD on 07/12/18 1316 Transcribed By: FELIZ MERA on 06/26/18 1533 COPY TO: MICHELLE BOSTON MD (NS)
[2019-08-14 11:00] LABS: BASOPHILS # (AUTO) 0.1 (0.0-0.1); BASOPHILS % 0.8 % (0.0-1.0); EOSINOPHILS % 13.4 % (0.0-6.0); HEMATOCRIT 34.5 % (38.2-49.6); HEMOGLOBIN 11.2 g/dL (14.0-18.0); LYMPHOCYTES # (AUTO) 1.1 (1.0-3.2); LYMPHOCYTES % 14.6 % (18.0-39.1); MEAN CORPUSCULAR HEMOGLOBIN 30.2 pg (28-32); MEAN CORPUSCULAR HGB CONC 32.5 g/dL (31-35); MONOCYTES # (AUTO) 0.6 (0.2-0.8); MONOCYTES % 7.9 % (4.4-11.3); NEUTROPHILS # (AUTO) 4.6 (2.1-6.9); PLATELET COUNT 115 x10e3/uL (140-360); RED BLOOD COUNT 3.71 x10e6/uL (4.3-5.7)
[2019-08-14 11:27] LABS: ANION GAP 11.2 mmol/L (8-16); BLOOD UREA NITROGEN 18 mg/dL (7-26); BUN/CREATININE RATIO 19 (6-25); CARBON DIOXIDE 24 mmol/L (22-29); CHLORIDE 104 mmol/L (98-107); CREATININE, SERUM 0.93 mg/dL (0.72-1.25); EST GLOMERULAR FILTRATION RATE > 60 ML/MIN (60-); GLUCOSE 106 mg/dL (74-118); POTASSIUM 4.2 mmol/L (3.5-5.1); SODIUM 135 mmol/L (136-145)
--- NOTE | 2019-08-14 16:48 | Diagnostic Imaging Report ---
Facial bone series, 2 views. History: Concern for foreign body/retained needle. Findings: The soft tissues are normal. There is no radiopaque foreign body. Bone mineralization is normal. There is no evidence of acute fracture or dislocation. Lucency is noted in the left skull which may represent a marely hole. IMPRESSION: No evidence of radiopaque foreign body. Signed by: Ap Leonard on 08/14/2019 4:45 PM
[2019-08-14 18:20] VITALS: BP 114/74
--- NOTE | 2019-08-15 01:27 | Operative Report ---
DATE OF PROCEDURE: 08/14/2019 SURGEON: Darren Morales MD PREOPERATIVE DIAGNOSIS: Dense cataract in the left eye. POSTOPERATIVE DIAGNOSIS: Dense cataract in the left eye. PROCEDURE: Complicated phacoemulsification with posterior chamber intraocular lens. ANESTHESIA: General. COMPLICATIONS: None. DESCRIPTION OF PROCEDURE: The patient was taken to the operating room, where they placed him under general anesthesia. The patient was unable to sit still due to his history of stroke and difficulty keeping his head still. The patient once placed under general anesthesia had the eye prepped and draped in the usual sterile ophthalmic way. A lid speculum was placed in the eye and a sideport incision was made. A 0.2 mL of 1% lidocaine preservative free was injected into the anterior chamber. An air bubble was injected in the anterior chamber and Trypan blue dye was used to stain the capsule secondary to a dense brunescent cataract. Excess dye was irrigated out using BSS solution. Viscoelastic was placed in the anterior chamber and a keratome was used to make a temporal clear corneal incision. A cystotome and Utrata forceps were used to create anterior capsulorrhexis without any complications. Hydrodissection was then performed. A phacoemulsification probe was placed in the eye and the nucleus was phacoemulsified using divide and conquer technique. Irrigation/aspiration handpiece was then used to remove any residual cortical material. Viscoelastic was placed in the capsular bag and an Mohinder SN60WF 21.0 diopter lens placed in the bag without any complications. Irrigation/aspiration handpiece was used to remove any residual viscoelastic material from within the eye. Miostat was injected into the anterior chamber and the wound was checked to make sure there was no evidence of leakage. The wound did show some leakage so one 10-0 nylon suture was used to secure the wound. The knot was buried within the cornea. Once this was done, the patient had Maxitrol ointment and Vigamox drops placed in the eye. A patch and candelaria shield were placed in the eye. The patient was extubated in good condition and was sent to the recovery room. The patient will be seen in my office tomorrow. Darren Morales MD SES/MODL /[id number]
== END | disposition home or self-care (01) ==
LOC: OR 10:35
PROVIDERS: ATTEND Ophthalmology
DX: H25.12 Age-related nuclear cataract, left eye (principal); G82.20 Paraplegia, unspecified; I25.10 Atherosclerotic heart disease of native coronary artery without angina pectoris; I10 Essential (primary) hypertension; E11.9 Type 2 diabetes mellitus without complications; K21.9 Gastro-esophageal reflux disease without esophagitis; N39.0 Urinary tract infection, site not specified; G80.9 Cerebral palsy, unspecified; G40.909 Epilepsy, unspecified, not intractable, without status epilepticus; N40.0 Benign prostatic hyperplasia without lower urinary tract symptoms; E03.9 Hypothyroidism, unspecified; M48.00 Spinal stenosis, site unspecified; M25.78 Osteophyte, vertebrae; D63.8 Anemia in other chronic diseases classified elsewhere; K74.60 Unspecified cirrhosis of liver; D69.6 Thrombocytopenia, unspecified; T07.XXXA Unspecified multiple injuries, initial encounter; G31.83 Neurocognitive disorder with Lewy bodies; F02.80 Dementia in other diseases classified elsewhere, unspecified severity, without behavioral disturbance, psychotic disturbance, mood disturbance, and anxiety; X58.XXXA Exposure to other specified factors, initial encounter; Z88.0 Allergy status to penicillin; Z88.8 Allergy status to other drugs, medicaments and biological substances; Z79.4 Long term (current) use of insulin; Z79.82 Long term (current) use of aspirin; Z87.01 Personal history of pneumonia (recurrent)
CPT/HCPCS: 36415; 66982; 70140; 80048; 82948; 85025; J1100; J2001; J2250; J2405; J2704; J3010; V2632

== ENCOUNTER → 2019-09-02 | Day surgery (SDC) | payer MEDICARE ==
[~2019-09-02] MED LIST changes: +ACETAMINOPHEN 1000 MG/100 ML 100 ML IV ONE; -BALANCED SALT SOLN (OPTH) 15 ML BTL IO ONE; +CHONDR SU A NA/HYALUR SOD 1 EACH KIT IO ONE; -DEXAMETHASONE SOD PHOS INJ 4 MG/ML VIAL ONE; -EPHEDRINE SULFATE INJ 50 MG/10 ML SYR ONE; +KETOROLAC TROMETHAMINE 30 MG/ML VIAL ONE; -MIDAZOLAM HCL 2 MG/2 ML VIAL ONE; +PHENYLEPHRINE HCL 1% 10 MG/ML VIAL ONE; +PHENYLEPHRINE HCL 10% 5 ML OPTH SOLN ONE
[2019-09-02 14:15] VITALS: BP 111/58
--- NOTE | 2019-09-19 01:09 | Operative Report ---
DATE OF PROCEDURE: 09/02/2019 SURGEON: Darren Morales MD PREOPERATIVE DIAGNOSIS: Dense cataract of the right eye. POSTOPERATIVE DIAGNOSIS: Dense cataract of the right eye. PROCEDURE: Complicated phacoemulsification with posterior chamber intraocular lens. ANESTHESIA: General. COMPLICATIONS: None. LENS: Aclon SN60WF 19.5 diopter lens. DESCRIPTION OF PROCEDURE: The patient was taken to the operating room, placed under general anesthesia due to the fact that he was unable to lie flat and cooperate for the procedure. Once he was placed under general anesthesia, the abdomen was prepped and draped in the usual sterile ophthalmic way. A lid speculum was placed in the eye, a sideport incision was made. A 40 mL of lidocaine, preservative-free were injected into the anterior chamber. Air bubble was placed in the anterior chamber and Trypan blue dye was used to stain the capsule secondary to a dense cataract with no red reflex. Excess BSS was used to irrigate the residual dye from the anterior chamber. A viscoelastic was placed in the anterior chamber and a temporal clear corneal incision was made. A cystome and an Utrata forceps were used to create an anterior capsulorrhexis without any complications. Hydrodissection was then performed. Phacoemulsification probe was placed in the eye and nucleus was phacoemulsified using divide and conquer technique. Irrigation/aspiration handpiece was then used to remove any residual cortical material. Viscoelastic was placed in the capsular bag and an Aclon SN60WF 19.5 diopter lens placed in the bag without any complications. Irrigation/aspiration handpiece was used to remove any residual cortical material from within the eye. Once this was done, one 10-0 nylon suture was used to secure the wound and the knot was buried. Miostat was injected into the anterior chamber. The patient had Maxitrol ointment, patch and candelaria shield, Vigamox drops were placed in the eye. He was extubated in good condition. The patient was sent to the recovery room, he will be seen in my office tomorrow. Darren Morales MD SES/MODL /[id number]
== END | disposition home or self-care (01) ==
LOC: OR 10:59
PROVIDERS: ATTEND Ophthalmology
DX: H25.12 Age-related nuclear cataract, left eye (principal); G80.9 Cerebral palsy, unspecified; F03.90 Unspecified dementia, unspecified severity, without behavioral disturbance, psychotic disturbance, mood disturbance, and anxiety; R56.9 Unspecified convulsions; I12.9 Hypertensive chronic kidney disease with stage 1 through stage 4 chronic kidney disease, or unspecified chronic kidney disease; N18.9 Chronic kidney disease, unspecified; E03.9 Hypothyroidism, unspecified; K21.9 Gastro-esophageal reflux disease without esophagitis; L89.94 Pressure ulcer of unspecified site, stage 4; I48.91 Unspecified atrial fibrillation; Z88.0 Allergy status to penicillin; Z88.8 Allergy status to other drugs, medicaments and biological substances; Z79.4 Long term (current) use of insulin; Z79.82 Long term (current) use of aspirin
CPT/HCPCS: 36415; 66982; 82948; J0131; J1885; J2001; J2370; J2405; J2704; J3010; V2632

== ENCOUNTER 2019-09-29 19:17 | Emergency (ER) | payer MEDICARE, OTHER ==
[~2019-09-29] VITALS: Ht 175.3 cm; Wt 113.4 kg
[~2019-09-29 19:17] MED LIST changes: -ACETAMINOPHEN 1000 MG/100 ML 100 ML IV ONE; -CHONDR SU A NA/HYALUR SOD 1 EACH KIT IO ONE; -FENTANYL CITRATE/PF 100MCG/2 ML INJ ONE; -KETOROLAC TROMETHAMINE 30 MG/ML VIAL ONE; -LIDOCAINE HCL 2% LOCAL INJ 5 ML SDV VIAL INJ ONE; -ONDANSETRON HCL INJ 2MG/ML 2ML 2 MG/ML VIAL ONE; -OR PHACO EYE KIT ONE; -PHENYLEPHRINE HCL 1% 10 MG/ML VIAL ONE; -PHENYLEPHRINE HCL 10% 5 ML OPTH SOLN ONE; -PREOP PHACO EYE KIT ONE; -PROPOFOL IV EMULSION 10 MG/ML 20 ML VIAL ONE; -SEVOFLURANE INHAL SOLN 250 ML PEN BTL ONE
[2019-09-29] MEDS ORDERED: CEFEPIME 2 GM/NS 0.9% 100 ML 100 ML IV ONE (19:45)
[2019-09-29] MEDS ORDERED: SODIUM CHLORIDE 0.9% 1000ML 1,000 ML IV ONE (19:45)
[2019-09-29 20:01] LABS: BASOPHILS # (AUTO) 0.1 (0.0-0.1); BASOPHILS % 0.5 % (0.0-1.0); EOSINOPHILS # (AUTO) 0.5 (0.0-0.4); EOSINOPHILS % 4.3 % (0.0-6.0); HEMATOCRIT 30.3 % (38.2-49.6); HEMOGLOBIN 9.8 g/dL (14.0-18.0); LYMPHOCYTES % 8.7 % (18.0-39.1); MEAN CORPUSCULAR HEMOGLOBIN 30.1 pg (28-32); MEAN CORPUSCULAR HGB CONC 32.3 g/dL (31-35); MEAN CORPUSCULAR VOLUME 92.9 fL (81-99); MONOCYTES # (AUTO) 0.8 (0.2-0.8); MONOCYTES % 7.5 % (4.4-11.3); NEUTROPHILS # (AUTO) 8.8 (2.1-6.9); NEUTROPHILS % 78.4 % (38.7-80.0); PLATELET COUNT 124 x10e3/uL (140-360); RED BLOOD COUNT 3.26 x10e6/uL (4.3-5.7); RED CELL DISTRIBUTION WIDTH 14.8 % (11.7-14.4)
[2019-09-29 20:12] LABS: INR 1.19; PROTHROMBIN TIME 15.7 seconds (11.9-14.5)
[2019-09-29 20:22] LABS: ALANINE AMINOTRANSFERASE 24 IU/L (0-55); ALBUMIN 2.1 g/dL (3.5-5.0); ALBUMIN/GLOBULIN RATIO 0.4 (0.8-2.0); ALKALINE PHOSPHATASE 171 IU/L (40-150); BLOOD UREA NITROGEN 13 mg/dL (7-26); BUN/CREATININE RATIO 16 (6-25); CALCIUM 7.7 mg/dL (8.4-10.2); CARBON DIOXIDE 19 mmol/L (22-29); CHLORIDE 103 mmol/L (98-107); CREATINE KINASE 40 IU/L (30-200); CREATININE, SERUM 0.79 mg/dL (0.72-1.25); EST GLOMERULAR FILTRATION RATE > 60 ML/MIN (60-); GLUCOSE 155 mg/dL (74-118); SODIUM 131 mmol/L (136-145)
--- NOTE | 2019-09-29 20:29 | Diagnostic Imaging Report ---
EXAMINATION: CHEST SINGLE (PORTABLE) COMPARISON: None INDICATION: Altered level of consciousness ^fever ^[id number] ^1954 ^Y DISCUSSION: Frontal view of the chest obtained at 2004 hours. HEART AND MEDIASTINUM: The heart is normal in size. Central pulmonary vasculature is mildly prominent LINES: None. LUNGS: Lung volumes are low with mild eventration of the right diaphragm. No pneumonia or pulmonary edema. PLEURA: No pleural effusion or pneumothorax. BONES AND SOFT TISSUES: There are pedicle screws and vertical stabilizing bars in the lower thoracic and upper lumbar spine. Visualized hardware is intact. There are degenerative changes of the left shoulder. The soft tissues are normal. IMPRESSION: No acute cardiopulmonary disease. Signed by: Dr. Rudi Chino MD on 09/29/2019 8:26 PM
[2019-09-29 20:39] LABS: BILIRUBIN,URINE NEGATIVE (NEGATIVE); CLARITY,URINE CLOUDY (CLEAR); COLOR,URINE YELLOW (YELLOW); KETONES,URINE NEGATIVE (NEGATIVE); LEUKOCYTE ESTERASE ,URINE LARGE (NEGATIVE); NITRITE,URINE POSITIVE (NEGATIVE); PROTEIN,URINE DIPSTICK 1+ (NEGATIVE); URINE UROBILINOGEN 0.2 mg/dL (0.2 - 1)
[2019-09-29 20:52] LABS: BACTERIA,URINE MANY /HPF; RBC,URINE 0-5 /HPF (0-5)
--- NOTE | 2019-09-29 22:30 | NUR ---
[facility] CALLED AT THIS TIME FOR TRANSPORT TO [facility].
[2019-09-29 23:08] VITALS: BP 110/51
--- NOTE | 2019-09-30 00:25 | NUR ---
[facility] ARRIVED AT THIS TIME FOR PT PICKUP.
== END 2019-09-30 00:29 | disposition home or self-care (01) ==
LOC: ER 19:17
DX: R50.9 Fever, unspecified (principal); N30.90 Cystitis, unspecified without hematuria; I10 Essential (primary) hypertension; E11.9 Type 2 diabetes mellitus without complications; E03.9 Hypothyroidism, unspecified; G40.909 Epilepsy, unspecified, not intractable, without status epilepticus; K21.9 Gastro-esophageal reflux disease without esophagitis; G80.9 Cerebral palsy, unspecified
CPT/HCPCS: 36415; 71045; 80053; 81001; 82550; 82553; 83605; 84484; 85025; 85610; 85730; 87040; 87086; 87186; 99284; J7030

== ENCOUNTER 2020-11-19 14:29 | Emergency (ER) | payer MEDICARE, OTHER ==
[~2020-11-19] VITALS: Ht 175.3 cm; Wt 113.4 kg
== END 2020-11-19 16:45 | disposition home or self-care (01) ==
LOC: ER 14:33
DX: Z46.6 Encounter for fitting and adjustment of urinary device (principal); I10 Essential (primary) hypertension; E11.9 Type 2 diabetes mellitus without complications; E03.9 Hypothyroidism, unspecified; G40.909 Epilepsy, unspecified, not intractable, without status epilepticus; K21.9 Gastro-esophageal reflux disease without esophagitis; G80.9 Cerebral palsy, unspecified
CPT/HCPCS: 99283

== ENCOUNTER 2020-11-19 22:03 | Emergency (ER) | payer MEDICARE, OTHER ==
[~2020-11-19] VITALS: Ht 175.3 cm; Wt 113.4 kg
== END 2020-11-19 22:17 | disposition home or self-care (01) ==
LOC: ER 22:16
DX: Z46.6 Encounter for fitting and adjustment of urinary device (principal); I10 Essential (primary) hypertension; E11.9 Type 2 diabetes mellitus without complications; E03.9 Hypothyroidism, unspecified; G40.909 Epilepsy, unspecified, not intractable, without status epilepticus; K21.9 Gastro-esophageal reflux disease without esophagitis; G80.9 Cerebral palsy, unspecified
CPT/HCPCS: 99282